=== PATIENT | female | born 1940 | race Caucasian/White ===

== ENCOUNTER 2022-03-15 15:41 | Observation (INO) | payer OTHER, MEDICARE, SELFPAY ==
[2022-03-15 15:44] VITALS: BP 110/54; PULSE 98; RESP 14; TEMP 36.6; O2SAT 95; BMI 31.9
--- NOTE | 2022-03-15 16:09 | ED.VIS.BACK ---
HPI History of Present Illness Chief Complaint: Back Informant: patient Onset/Context/Timing Onset: Days (2) Context: Gradual Onset Timing: Continuous Quality: Aching Location: Lumbar Worsened by: improves with - (Laying in bathtub) Relieved by: Nothing Associated Symptoms Associated Symptoms: Unable to Ambulate; Negative for Numbness, Tingling, Radiation to Right Leg, Radiation to Left Leg, Fever, Abdominal Pain, Dysuria, Urinary Retention, Urinary Incontinence, Constipation and Fecal Incontinence Narrative Narrative: Patient presents with back pain that has been constant over the past 2 days. Patient was found lying in her bathtub today. Patient states that she got into her bathtub 2 days ago and when she let the water out, she was unable to get out of her tub due to the pain in her back. Patient describes her pain as aching. Patient states pain is over the lumbosacral area. Patient states her pain is worse from laying in the tub for 2 days. Patient denies any radiation of the pain down her legs. Patient denies any bowel or bladder changes. Patient denies any saddle anesthesia. Patient also admits to a recent cough. Patient denies any sputum production. Patient denies any fevers or chills. Patient denies any shortness of breath or chest pain. [facility] Medical History Kidney calculi Home Medications NK 03/15/22 [History Last Taken Unknown] Allergy/AdvReac Type Severity Reaction Status Date / Time bee venom protein (honey bee) AdvReac Other Verified 03/15/22 15:48 Social History Smoking Status: Never smoker ROS ROS ED Constitutional Constitutional ED: Denies chills or fever(s) Eyes Eyes: Denies blurry vision or change in vision ENT ENT ED: Denies rhinorrhea or sore throat Cardiovascular Cardiovascular: Denies chest pain or palpitations Respiratory/Chest Respiratory/Chest: Reports cough; Denies dyspnea Gastrointestinal Gastrointestinal: Denies nausea or vomiting Genitourinary Genitourinary ED: Denies dysuria or hematuria Musculoskeletal Musculoskeletal: Reports back pain; Denies neck pain Integumentary Denies abscess or rash Neurologic Neurologic: Denies headache(s) or weakness Allergic/Immunologic Allergic/Immunologic ED: Denies mouth swelling or urticaria EXAM Physical Exam Const Vital Signs: 03/15/22 15:44 Temperature 97.8 F Temperature Source Oral Pulse Rate 98 Respiratory Rate 14 Blood Pressure 110/54 L Blood Pressure Mean 72 Pulse Ox 95 Oxygen Delivery Method Room Air Positive well nourished and well developed General Appearance ED: well developed and NAD HEENT Reports moist mucous membranes Neck supple and no JVD Resp normal respiratory effort and clear to auscultation bilaterally Cardio regular rate, regular rhythm and no murmurs GI normal to inspection, nondistended, normoactive bowel sounds and non-tender Palpation: soft Back/Spine Back/Spine Narrative: There is tenderness over the lower lumbar spine and lumbosacral junction. There is no bony crepitance or step-off. Range of motion was limited in all motions of the lumbar spine secondary to pain. Lumbar Spine / Lower Back: ROM limited and straight leg raise negative bilaterally Extremity normal to inspection General Extremety ED: Negative for edema or tenderness General Extremity: Negative for edema Neuro oriented x3, CN's II-XII intact bilaterally and no sensory deficits noted Sensorium / Orientation: alert Motor Exam: strength 5/5 throughout Psych mental status grossly normal Skin no rashes or lesions noted MDM MDM MDM Narrative Medical decision making narrative: X-rays of the lumbar spine were obtained. There are 2 views. On my interpretation, there are degenerative changes. There is a grade 1 spondylolisthesis of L4 on L5. There is no acute fracture noted. Radiologist also interpreted the x-rays and agrees. Portable 1 view chest x-ray was obtained. On my interpretation, lung santos are clear. There is normal cardiac silhouette. Bony thorax is normal. There is no acute process noted. Radiologist also interpreted the x-ray and agrees. CBC shows a leukocytosis of 17.9. Comprehensive metabolic profile shows a BUN of 58 and creatinine of 1.88. Total CK was elevated at 408. High-sensitivity troponin was normal at 11. Alkaline phosphatase was slightly elevated at 131. The remainder was essentially within normal limits. There are no prior labs for comparison. EKG was obtained. On my interpretation it shows a normal sinus rhythm with a rate of 93. There are nonspecific ST-T wave changes. TN interval was within normal limits. QRS interval was normal. QTc interval was slightly prolonged at 507 ms. Pelham was normal. There are no prior EKGs available for comparison. Lab Data Attestation: I reviewed the patient's lab results. Labs: Laboratory Results - last 24 hr 03/15/22 03/15/22 16:30 16:30 WBC 17.9 H RBC 4.84 Hgb 14.5 Hct 43.3 MCV 89.5 MCH 30.0 MCHC 33.5 RDW Std Deviation 42.5 RDW Coeff of Enedina 13.0 Plt Count 329 MPV 11.3 Immature Gran % (Auto) 0.700 Neut % (Auto) 89.8 H Lymph % (Auto) 4.1 L [place] % (Auto) 5.0 Eos % (Auto) 0.2 Baso % (Auto) 0.2 Absolute Neuts (auto) 16.1 H Absolute Lymphs (auto) 0.73 L Nucleated RBC % 0 Sodium 134 L Potassium 3.3 L Chloride 99 Carbon Dioxide 25.0 Anion Gap 10 BUN 58 H Creatinine 1.88 H Estim Creat Clear Calc 19.41 Est GFR (MDRD) Af Amer 33 L Est GFR (MDRD) Non-Af 27 L BUN/Creatinine Ratio 30.9 H Glucose 148 H Calcium 10.2 H Total Bilirubin 0.90 AST 36 ALT 29 Alkaline Phosphatase 131 H Total Creatine Kinase 408 H Troponin I High Sens 11 Total Protein 7.6 Albumin 2.5 L Globulin 5.1 H Albumin/Globulin Ratio 0.5 L Radiography Chest X-Ray - ED: 1 View, Read by ED Physician, Read by Radiologist and No Acute Disease X-Ray: LS SPine, Read by ED Physician, Read by Radiologist, No Fracture and Spondylolisthesis Diagnostic Testing: Clinical Impression(s) from Imaging Studies Lumbar Spine X-Ray 03/15/22 16:16 IMPRESSION: Grade 1 anterolisthesis L4 on L5. Severe multilevel degenerative disc disease and spondylosis. Electronically Signed: Leo Clay MD at 17:05 EDT , Chest X-Ray 03/15/22 16:30 IMPRESSION: Prominent right hilar nodes. No other acute abnormalities. Electronically Signed: Leo Clay MD at 17:05 EDT , EKG Initial EKG: Attestation: I personally reviewed and interpreted this EKG as follows: Interpretation: Sinus Rhythm (93), No Acute Injury Pattern and Non-Specific ST Changes Prior EKG tracings: not available for review Discharge Plan Triage Chief Complaint: Back ED Provider: Morgan Segura Dx/Rx/DC Orders Clinical Impression: Debility, General weakness, Low back pain Prescriptions: No Action NK RF: 0 Primary Care Provider: Care Physician,No Primary Referrals: Care Physician,No Primary [Primary Care Provider] - Disposition Disposition: Acute Care Hospital [facility]
--- NOTE | 2022-03-15 16:15 | EKG12_ITS ---
Test Reason : BP Blood Pressure : / mmHG Vent. Rate : 093 BPM Atrial Rate : 093 BPM P-R Int : 152 ms QRS Dur : 080 ms QT Int : 408 ms P-R-T Axes : 025 025 072 degrees QTc Int : 507 ms Normal sinus rhythm Nonspecific T wave abnormality Prolonged QT Abnormal ECG Confirmed by LÓPEZ CHOWDHURY, FLACO ([id number]), editor managing director BLAYNE TABOR ([id number]) on 03/19/2022 9:06:36 AM Referred By: BRANDIE Confirmed By:FLACO DAWN MD
--- NOTE | 2022-03-15 16:16 | RAD_ITS ---
INDICATION: Injury/Pain EXAMINATION/TECHNIQUE: X-RAY - XR Spine Lumbar 2 or 3 Views COMPARISON: None. FINDINGS: VERTEBRAE: Preserved vertebral body height. No fracture. Grade 1 anterolisthesis L4 on L5 Preservation of the normal lumbar lordosis. Severe multilevel facet arthropathy. DISCS: Severe multilevel degenerative disc disease and spondylosis. INCLUDED ABDOMEN: Included bowel gas pattern is non-obstructive. RAD/Lumbar Spine 2 or 3 Views IMPRESSION: Grade 1 anterolisthesis L4 on L5. Severe multilevel degenerative disc disease and spondylosis. Electronically Signed: Leo Clay MD at 17:05 EDT ,
[2022-03-15] MEDS: 0.9% Normal Saline 1,000 ML 1000 ML IV (16:26)
--- NOTE | 2022-03-15 16:30 | RAD_ITS ---
INDICATION: Cough EXAMINATION/TECHNIQUE: X-RAY - XR Chest 1 View COMPARISON: None. FINDINGS: The lungs are clear. The cardiomediastinal silhouette is unremarkable. Prominent right hilar nodes. No pleural effusion or pneumothorax. Degenerative changes of the thoracic spine. RAD/Chest 1 View (Portable) IMPRESSION: Prominent right hilar nodes. No other acute abnormalities. Electronically Signed: Leo Clay MD at 17:05 EDT ,
[2022-03-15 16:38] LABS: Absolute Lymphocyte Count 0.73 X10^3/uL (0.83-4.51); Absolute Neutrophil Count 16.1 X10^3/uL (2.0-7.7); Basophil# 0.03 X10^3/uL; Basophil% 0.2 % (0-1); Eosinophil# 0.04 X10^3/uL; Eosinophils% 0.2 % (0-5); Hematocrit 43.3 % (37-47); Hemoglobin 14.5 g/dL (12.0-15.0); Lymphocyte # 0.73 X10^3/ul (0.83-4.51); Lymphocyte % 4.1 % (19-41); Mean Corp Hgb Conc 33.5 g/dL (32-36); Mean Corpuscular Volume 89.5 fL (81-99); Mean Platelet Vol. 11.3 fl (6.2-12.0); Monocyte# 0.89 X10^3/uL; NRBC Flagged by Analyzer 0 % (0-5); Neutrophil # 16.09 X10^3/uL (2.7-7.7); Neutrophil % 89.8 % (47-70); Platelet Count 329 K/mm3 (150-450); RBC Distribution Width SD 42.5 fl (35.1-43.9); Red Blood Count 4.84 M/mm3 (4.2-5.4); White Blood Count 17.9 K/mm3 (4.4-11.0)
[2022-03-15 16:52] LABS: ALB/GLOB Ratio 0.5 RATIO (0.9-2.4); AST(SGOT) 36 U/L (15-37); Alanine Aminotransfer ALT/SGPT 29 U/L (13-56); Albumin, Serum 2.5 g/dL (3.2-5.0); Alkaline Phosphatase 131 U/L (45-117); Anion Gap 10 (5-15); BUN 58 mg/dL (7-18); BUN/Creat Ratio 30.9 RATIO (10-20); CPK Total, Creatine Kinase 408 U/L (26-192); Calcium,Total 10.2 mg/dL (8.5-10.1); Chloride 99 mmol/L (98-107); Creatinine, Serum 1.88 mg/dL (0.55-1.02); EST Glomerular Filtration Rate 27 mL/min (>60); Est Glom Filt Rate - Afr Amer 33 mL/min (>60); Estimated Creatinine Clearance 19.41 ml/min; Globulin 5.1 g/dL (2.2-4.2); Glucose 148 mg/dL (74-106); Potassium 3.3 mmol/L (3.5-5.1); Protein, Total 7.6 g/dL (6.4-8.2); Sodium Level 134 mmol/L (136-145); Troponin-I HS 11 pg/mL (3.0-54.0)
[2022-03-15 17:34] LABS: Mucous, Urine 0 SEEN /hpf (<or=2+); Red Blood Cells-Urine 0 SEEN /hpf (0-5)
[2022-03-15 17:37] LABS: Color, Urine Amber (Yellow); Glucose, Dipstick Normal (Normal); Ketone-Dipstick 5 mg/dl (Negative); Leukocyte Esterase-Dipstick 100 /ul (Negative); Nitrite-Dipstick Positive (Negative); Occult Blood-Urine 250 /ul (Negative); Protein-Dipstick 30 mg/dl (Negative); Specific Gravity, Urine 1.025 (1.002-1.030); Urine Clarity Clear (Clear); Urine Urobilinogen 4 mg/dl (Normal)
--- NOTE | 2022-03-15 18:11 | PCM.HP.STD ---
HPI - General General Date of Admission: 03/15/22 Date of Service: 03/15/22 Chief Complaint: Generalized weakness HPI Narrative MADHURI ANAYA, is a 82 F who presents to the emergency room at [facility] after being brought in due to the fact she was found in her bathtub at home and she was unable to get out of the bathtub. Patient states she took a bath 2 days ago, she drained the water from the tub but then was unable to get out of the bathtub. Patient lives by herself, she usually is independent-she cannot give a reason for her generalized weakness. Patient denies any fever, chills, or urinary symptoms. Patient does complain of lower back pain but she denies any fall or trauma Work-up in the emergency room included labs which showed an elevated white blood cell count at 17.9, chemistry profile showed a potassium of 3.3, creatinine was 1.88, BUN was 58, glucose was 148. There were no labs available in the patient's medical record here previously. Patient's urinalysis showed positive nitrites, 10-25 WBCs, and +2 bacteria. CPK was mildly elevated at 408. X-rays of the chest showed no acute process, there was prominent right hilar nodes, lumbar spine x-ray showed multilevel degenerative disc disease in the lumbar spine but no evidence of fracture. Patient's nephew was in the room during the time of my examination, the patient will be placed into observation status for evaluation by PT and OT, patient agrees to go to TCU if she qualifies for short-term skilled care. Patient will be placed on IV Rocephin for acute cystitis. IV fluids will be administered for dehydration. Patient has never been in a half-way facility before. [facility] Medical History Kidney calculi Home Medications NK 03/15/22 [History Last Taken Unknown] Allergy/AdvReac Type Severity Reaction Status Date / Time bee venom protein (honey bee) AdvReac Other Verified 03/15/22 15:48 Social History Smoking Status: Never smoker ROS Constitutional Constitutional: Reports fatigue and weakness; Denies anorexia, change in weight, chills, fever(s), malaise or night sweats Eyes Eyes: Denies blurry vision, change in vision, discharge from eye(s) or eye pain Cardiovascular Cardiovascular: Denies chest pain, claudication, dyspnea on exertion, edema, lightheadedness or palpitations Respiratory/Chest Respiratory/Chest: Reports cough; Denies dyspnea, excessive phlegm production, hemoptysis, productive cough, shortness of breath at rest or shortness of breath with exertion Gastrointestinal Gastrointestinal: Denies abdominal pain, coffee ground emesis, constipation, diarrhea, dyspepsia, hematemesis, hematochezia, melena, nausea or vomiting Genitourinary Genitourinary: Denies difficulty urinating, dysuria, hematuria, nocturia, urinary frequency, urinary hesitancy, urinary incontinence or urinary urgency Musculoskeletal Musculoskeletal: Reports back pain and other Details: Patient complains of low back pain ; Denies joint pain, joint stiffness, joint swelling, myalgias or neck pain Neurologic Neurologic: Denies abnormal gait, abnormal speech, confusion, disequilibrium, dizziness, focal weakness, headache(s), loss of vision, numbness, other visual disturbances, paresthesias, syncope or tingling Psychiatric Psychiatric: Denies anxiety, cognitive impairment, depression, irritability, mood swings or suicidal ideation Endocrine Endocrinology: Denies change in body appearance, cold intolerance, excessive sweating, heat intolerance, polydipsia or polyuria Hematologic/Lymphatic Hematologic/Lymphatic: Denies none, anemia, easy bleeding, easy bruising or lymphadenopathy Allergic/Immunologic Allergic/Immunologic: Denies rhinitis, urticaria, eczemia or asthma Vital Signs Vital Signs Vital Signs: 03/15/22 15:44 Temperature 97.8 F Temperature Source Oral Pulse Rate 98 Respiratory Rate 14 Blood Pressure 110/54 L Blood Pressure Mean 72 Pulse Ox 95 Oxygen Delivery Method Room Air Weight Weight: 81.74 kg Body Mass Index (BMI) 31.9 Physical Exam Const alert, oriented x3, no apparent distress and healthy appearing Constitutional Narrative: Patient appears her stated age, she is alert and oriented x3 and appropriate General Appearance: cooperative, well kempt and well developed Orientation / Consciousness: awake, oriented to person, oriented to place and oriented to time HEENT normocephalic, head/scalp atraumatic, hearing grossly normal bilaterally and moist oral mucous membranes Eyes PERRL, EOMs intact bilaterally and conjunctivae normal Neck nuchal rigidity, supple, no JVD, thyroid normal and no carotid bruits General: trachea midline Resp normal respiratory effort, no retractions, no use of accessory muscles and clear to auscultation bilaterally Auscultation: Negative for rales, rhonchi or wheezes Cardio regular rate, regular rhythm, S1 normal heart sound, S2 normal heart sound, no murmurs, no rub and no gallops GI normal to inspection, nondistended, normoactive bowel sounds, soft to palpation, non-tender and non-distended Extremity normal to inspection and no clubbing, cyanosis or edema Skin no rashes or lesions noted, no wounds and skin turgor normal General Skin Exam: no breakdown Neuro oriented x3, CN's II-XII intact bilaterally, no focal motor deficits and no sensory deficits noted Sensorium / Orientation: awake and alert Speech: speech normal Psych affect normal Results Lab / Micro Data Result Diagrams: 03/15/22 16:30 03/15/22 16:30 Labs: Laboratory Results - last 24 hr 03/15/22 16:30: WBC 17.9 H, RBC 4.84, Hgb 14.5, Hct 43.3, MCV 89.5, MCH 30.0, MCHC 33.5, RDW Std Deviation 42.5, RDW Coeff of Enedina 13.0, Plt Count 329, MPV 11.3, Immature Gran % (Auto) 0.700, Neut % (Auto) 89.8 H, Lymph % (Auto) 4.1 L, [place] % (Auto) 5.0, Eos % (Auto) 0.2, Baso % (Auto) 0.2, Absolute Neuts (auto) 16.1 H, Absolute Lymphs (auto) 0.73 L, Nucleated RBC % 0 03/15/22 16:30: Sodium 134 L, Potassium 3.3 L, Chloride 99, Carbon Dioxide 25.0, Anion Gap 10, BUN 58 H, Creatinine 1.88 H, Estim Creat Clear Calc 19.41, Est GFR (MDRD) Af Amer 33 L, Est GFR (MDRD) Non-Af 27 L, BUN/Creatinine Ratio 30.9 H, Glucose 148 H, Calcium 10.2 H, Total Bilirubin 0.90, AST 36, ALT 29, Alkaline Phosphatase 131 H, Total Creatine Kinase 408 H, Troponin I High Sens 11, Total Protein 7.6, Albumin 2.5 L, Globulin 5.1 H, Albumin/Globulin Ratio 0.5 L Radiology Impression Lumbar Spine X-Ray 03/15/22 16:16 IMPRESSION: Grade 1 anterolisthesis L4 on L5. Severe multilevel degenerative disc disease and spondylosis. Electronically Signed: Leo Clay MD at 17:05 EDT , Chest X-Ray 03/15/22 16:30 IMPRESSION: Prominent right hilar nodes. No other acute abnormalities. Electronically Signed: Leo Clay MD at 17:05 EDT , Assessment & Plan Assessment/Plan (1) General weakness: PLAN: 1. Acute debility-etiology unclear at this point,, patient will be placed in observation status on [facility], PT and OT will evaluate the patient, if she requires half-way care, she could be admitted to TCU this weekend for short-term rehab care. Patient is okay with this, I checked with TCU and they do have beds available as of the time of this dictation. #2 elevated creatinine-etiology unclear, possibly due to dehydration, patient will be given IV fluids and labs will be rechecked #3 hypokalemia-patient will be given oral potassium, labs will be rechecked tomorrow #4 leukocytosis-secondary to acute cystitis-labs will be rechecked tomorrow #5 acute cystitis-patient has positive nitrites and 10-25 WBCs as well as +2 bacteria on her urinalysis-patient will be placed on IV Rocephin #6 elevated creatinine kinase-this elevation is very slight, I do not believe the patient has rhabdomyolysis. Charges/Coding Visit Charges OBSV E&M: 65760 Initial observation care L3
[2022-03-15 18:13] LABS: Urine Bilirubin Dipstick 3 mg/dL (Negative)
[2022-03-15 18:18] LABS: White Blood Cells 10-25 SEEN /hpf (0-5)
[2022-03-15 18:19] LABS: Bacteria 2+ /hpf (None Seen); Renal Epithelial Cells 0 SEEN /hpf (0-5); Squamous Epithelial Cells - UA 0-5 SEEN /hpf (5-10)
[2022-03-15 19:11] VITALS: BMI 33.7
[2022-03-15 19:30] VITALS: BP 123/56; PULSE 87; RESP 18; TEMP 36.5; O2SAT 97
[2022-03-15 19:39] VITALS: BP 122/78; PULSE 81; RESP 16; TEMP 36.6; O2SAT 98
[2022-03-15] MEDS: 0.9% Normal Saline 1,000 ML 100 ML IV (20:34)
[2022-03-15] MEDS: Ceftriaxone 1 GM/50 ML BAG IV (20:45)
[2022-03-15] MEDS: Potassium Chloride Oral Tablet 20 MEQ 40 MEQ PO (21:22)
[2022-03-15] MEDS: Heparin Injection (Vial) 5,000 UNIT/ML VIAL 5000 UNIT SC (22:30)
[2022-03-16 02:17] VITALS: BP 124/61; PULSE 88; RESP 18; TEMP 37; O2SAT 94
[2022-03-16 06:13] LABS: Absolute Lymphocyte Count 0.73 X10^3/uL (0.83-4.51); Absolute Neutrophil Count 10.4 X10^3/uL (2.0-7.7); Basophil# 0.02 X10^3/uL; Basophil% 0.2 % (0-1); Eosinophil# 0.14 X10^3/uL; Eosinophils% 1.1 % (0-5); Hematocrit 35.9 % (37-47); Lymphocyte # 0.73 X10^3/ul (0.83-4.51); Mean Corp Hgb Conc 33.4 g/dL (32-36); Mean Corpuscular Hgb 30.1 pg (27.0-32.0); Mean Platelet Vol. 11.4 fl (6.2-12.0); Monocyte# 0.83 X10^3/uL; Monocyte% 6.8 % (0-10); NRBC Flagged by Analyzer 0 % (0-5); Neutrophil % 85.1 % (47-70); Platelet Count 297 K/mm3 (150-450); RBC Distribution Width CV 13.1 % (11.6-14.6); RBC Distribution Width SD 43.2 fl (35.1-43.9); Red Blood Count 3.99 M/mm3 (4.2-5.4); White Blood Count 12.2 K/mm3 (4.4-11.0)
[2022-03-16 06:33] LABS: Anion Gap 5 (5-15); BUN 48 mg/dL (7-18); BUN/Creat Ratio 42.1 RATIO (10-20); Chloride 108 mmol/L (98-107); Creatinine, Serum 1.14 mg/dL (0.55-1.02); EST Glomerular Filtration Rate 49 mL/min (>60); Est Glom Filt Rate - Afr Amer 59 mL/min (>60); Estimated Creatinine Clearance 32.02 ml/min; Glucose 113 mg/dL (74-106); Potassium 3.8 mmol/L (3.5-5.1); Sodium Level 137 mmol/L (136-145)
[2022-03-16] MEDS: 0.9% Normal Saline 1,000 ML 100 ML IV (06:48)
[2022-03-16] MEDS: Acetaminophen 325 MG Tablet 650 MG PO (06:51)
[2022-03-16 08:00] VITALS: BP 112/55; PULSE 84; RESP 16; TEMP 36.8; O2SAT 93
--- NOTE | 2022-03-16 09:41 | PN.HOSP_ITS ---
Subjective Subjective Patient seen and examined. She was admitted with a complaint of debility and general weakness. She says she was in her bathtub for about 2 days because she was too weak to get out. She denies any pain today and still feels weak. She was also found to have a UTI. She currently denies any burning with urination, any fever or chills. Review of systems otherwise negative. Review of systems otherwise negative. Objective Data Objective Data Vital Signs: Vital Signs Temp Pulse Resp BP Pulse Ox 98.6 F 88 18 124/61 H 94 03/16/22 02:17 03/16/22 02:17 03/16/22 02:17 03/16/22 02:17 03/16/22 02:17 Oxygen Delivery Method Room Air Weight: 190 lb 4.143 oz Body Mass Index (BMI) 33.7 Intake & Output: Intake and Output for Last 24 Hours 03/14/22 03/15/22 03/16/22 23:59 23:59 23:59 Intake Total 1050 / 1250 1400 / 1400 Output Total 500 / 500 Balance 1050 / 950 900 / 900 Lab / Micro Data Result Diagrams: 03/16/22 05:41 03/16/22 05:41 Labs: Laboratory Results - last 24 hr 03/15/22 16:30: WBC 17.9 H, RBC 4.84, Hgb 14.5, Hct 43.3, MCV 89.5, MCH 30.0, MCHC 33.5, RDW Std Deviation 42.5, RDW Coeff of Enedina 13.0, Plt Count 329, MPV 11.3, Immature Gran % (Auto) 0.700, Neut % (Auto) 89.8 H, Lymph % (Auto) 4.1 L, [place] % (Auto) 5.0, Eos % (Auto) 0.2, Baso % (Auto) 0.2, Absolute Neuts (auto) 16.1 H, Absolute Lymphs (auto) 0.73 L, Nucleated RBC % 0 03/15/22 16:30: Sodium 134 L, Potassium 3.3 L, Chloride 99, Carbon Dioxide 25.0, Anion Gap 10, BUN 58 H, Creatinine 1.88 H, Estim Creat Clear Calc 19.41, Est GFR (MDRD) Af Amer 33 L, Est GFR (MDRD) Non-Af 27 L, BUN/Creatinine Ratio 30.9 H, Glucose 148 H, Calcium 10.2 H, Total Bilirubin 0.90, AST 36, ALT 29, Alkaline Phosphatase 131 H, Total Creatine Kinase 408 H, Troponin I High Sens 11, Total Protein 7.6, Albumin 2.5 L, Globulin 5.1 H, Albumin/Globulin Ratio 0.5 L 03/15/22 17:20: Urine Color Kaylen, Urine Clarity Clear, Urine pH 5.0, Ur Specific [place] 1.025, Urine Protein 30 H, Urine Glucose (UA) Normal, Urine Ketones 5 H, Urine Occult Blood 250 H, Urine Nitrite Positive H, Urine Bilirubin 3 H, Urine Urobilinogen 4 H, Ur Leukocyte Esterase 100 H, Urine RBC 0 SEEN, Urine WBC 10-25 SEEN, Ur Squamous Epith Cells 0-5 SEEN, Ur Renal Epithelial Cell 0 SEEN, Urine Bacteria 2+, Urine Mucus 0 SEEN 03/16/22 05:41: WBC 12.2 H, RBC 3.99 L, Hgb 12.0, Hct 35.9 L, MCV 90.0, MCH 30.1, MCHC 33.4, RDW Std Deviation 43.2, RDW Coeff of Enedina 13.1, Plt Count 297, MPV 11.4, Immature Gran % (Auto) 0.800, Neut % (Auto) 85.1 H, Lymph % (Auto) 6.0 L, [place] % (Auto) 6.8, Eos % (Auto) 1.1, Baso % (Auto) 0.2, Absolute Neuts (auto) 10.4 H, Absolute Lymphs (auto) 0.73 L, Nucleated RBC % 0 03/16/22 05:41: Sodium 137, Potassium 3.8, Chloride 108 H, Carbon Dioxide 24.0, Anion Gap 5, BUN 48 H, Creatinine 1.14 H, Estim Creat Clear Calc 32.02, Est GFR (MDRD) Af Amer 59 L, Est GFR (MDRD) Non-Af 49 L, BUN/Creatinine Ratio 42.1 H, Glucose 113 H, Calcium 9.0 Radiography Diagnostic Testing: Radiology Impression Lumbar Spine X-Ray 03/15/22 16:16 IMPRESSION: Grade 1 anterolisthesis L4 on L5. Severe multilevel degenerative disc disease and spondylosis. Electronically Signed: Leo Clay MD at 17:05 EDT , Chest X-Ray 03/15/22 16:30 IMPRESSION: Prominent right hilar nodes. No other acute abnormalities. Electronically Signed: Leo Clay MD at 17:05 EDT , Physical Exam Const alert, oriented x3 and no apparent distress Exam Limitations: no limitations HEENT head/scalp atraumatic and moist oral mucous membranes Head and Scalp: normocephalic Eyes PERRL and EOMs intact bilaterally Neck no lymphadenopathy, supple and no JVD Resp normal respiratory effort, no retractions, no use of accessory muscles and clear to auscultation bilaterally Cardio regular rate, regular rhythm, S1 normal heart sound, S2 normal heart sound and no murmurs GI normal to inspection, nondistended, normoactive bowel sounds, soft to palpation, non-tender and non-distended Extremity normal to inspection, full ROM and no clubbing, cyanosis or edema Peripheral Pulses: Yes pulses 2+ throughout Skin no rashes or lesions noted Neuro oriented x3, CN's II-XII intact bilaterally and moves all extremities Sensorium / Orientation: awake and alert Psych affect normal Assessment & Plan Assessment/Plan (1) General weakness: (2) Low back pain: (3) Debility: (4) UTI (urinary tract infection): PLAN: #Debility due to UTI and generalized weakness * Currently on IV ceftriaxone. * Hydrate gently with IV fluids * PT OT on board. Fall precautions. * #UTI: As above #ARTI: CR was 1.88 on admission, and has trended down to 1.14 with iVF administration. Will trend Cr #Hypokalemia: Resolved DVT prophylaxis: Lovenox CODE STATUS: DNR CCA no intubation Charges/Coding Visit Charges OBSV E&M: 98408 Subsequent observation care L2
[2022-03-16] MEDS: Ceftriaxone 1 GM/50 ML BAG IV (09:52)
[2022-03-16] MEDS: Heparin Injection (Vial) 5,000 UNIT/ML VIAL 5000 UNIT SC (09:53)
--- NOTE | 2022-03-16 13:14 | CM.ED ---
Addendum entered by Brianna Cabrera 03/16/22 16:26: JUAN CARLOS talked to Jodi in registration. She said that Medicare was unable to be verified yesterday (03/15) and was unable to be verified today (02/13) as Medicare is down however, she felt that the patient's insurance was as presented Medicare A as primary. JUAN CARLOS called TCU and spoke to Chen and advised that patient was coming to TCU. Chen said that she would review the chart. Addendum entered by Brianna Cabrera 03/16/22 13:55: JUAN CARLOS called Jodi in Registraation. She said that Medicare A is Primary. Brianna GREWAL Addendum entered by Brianna Cabrera 03/16/22 13:23: JUAN CARLOS Updated patient and her family that thge plan for patient today is TCU. Brianna GREWAL Original Note: JUAN CARLOS Note JUAN CARLOS was advised by RN ASHLIE that patient was on observation status as the plan was to admit to TCU. JUAN CARLOS texted Shelby and explained that patient has Medicare Part A and secondary, [employer]. Shelby indicated that if patient is primary Medicare A patient can go to TCU. JUAN CARLOS reviewed with Catrachita that patient's primary needs Medicare and she confirmed patient was Medicare A. JUAN CARLOS updated head charger on MS3 that patient will be going to TCU when discharged and she updated the MD. Plan: TCU at discharge Brianna GREWAL
--- NOTE | 2022-03-16 13:30 | PCM.DC.SUM ---
Providers Date of Admission: 03/15/22 Primary Care Physician: No Primary Care Phys Reason For Visit: DEBILITY Diagnosis Discharge Diagnosis (1) General weakness: Status: Acute Code(s): R53.1 - Weakness (2) Low back pain: Status: Acute Code(s): M54.50 - Low back pain, unspecified (3) Debility: Status: Acute Code(s): R53.81 - Other malaise (4) UTI (urinary tract infection): Status: Acute Code(s): N39.0 - Urinary tract infection, site not specified Medications at Discharge Home Medications cefdinir 300 mg PO BID #10 cap 03/16/22 Hospital Course Summary of Care Provided Minutes Spent on Discharge: 35 Hospital Course: Patient is an 82-year-old female with a past medical history as outlined was admitted through the ED on 03/15/2022 after she was found in her bathtub where she was too weak to get out of. She had been in the past for about 2 days. She usually lives by herself and was independent but says she felt too weak and just could not get out of the bathtub. On admission she was found to have an elevated white cell count of 17.9 and potassium of 3.3. Creatinine was mildly elevated at 1.88. Urinalysis showed 2+ bacteria and 10-25 WBCs as well as positive nitrites. Chest x-ray showed no acute cardiopulmonary process. She was admitted to managed for debility and generalized weakness as well as UTI. She was started on IV ceftriaxone and urine cultures were obtained. Her ARTI improved and her creatinine trended downwards. Patient felt much better and creatinine was down to 1.14 at time of discharge. She obtained a bed at the Transitional Care Unit and was discharged on 03/16/2022. She is follow-up with her primary care doctor in 1 to 2 weeks. She was discharged on p.o. cefdinir 200 mg twice daily for 5 days to treat UTI. Patient was seen and examined on the day of discharge. She had no active complaints though still felt weak and tired. Review of systems otherwise negative. Labs and vitals reviewed. Home medication reviewed and reconciled. Physical Exam Const alert, oriented x3, no apparent distress and healthy appearing General Appearance: cooperative, comfortable, well kempt and well developed Orientation / Consciousness: awake, oriented to person, oriented to place and oriented to time Exam Limitations: no limitations HEENT normocephalic, head/scalp atraumatic, hearing grossly normal bilaterally and moist oral mucous membranes Eyes PERRL, EOMs intact bilaterally and conjunctivae normal Neck nuchal rigidity, no lymphadenopathy, supple, no JVD, thyroid normal and no carotid bruits General: trachea midline Resp normal respiratory effort, no retractions, no use of accessory muscles and clear to auscultation bilaterally Auscultation: Negative for rales, rhonchi or wheezes Cardio regular rate, regular rhythm, S1 normal heart sound, S2 normal heart sound, no murmurs, no rub and no gallops GI normal to inspection, nondistended, normoactive bowel sounds, soft to palpation, non-tender and non-distended Extremity normal to inspection, full ROM and no clubbing, cyanosis or edema Skin no rashes or lesions noted, no wounds and skin turgor normal General Skin Exam: no breakdown Neuro oriented x3, CN's II-XII intact bilaterally, moves all extremities, no focal motor deficits and no sensory deficits noted Sensorium / Orientation: awake and alert Speech: speech normal Psych affect normal Weight / BMI Weight Weight: 190 lb 4.143 oz Body Mass Index (BMI) 33.7 ABG / Lab / Microbiology Data Result Diagrams: 03/16/22 05:41 03/16/22 05:41 Laboratory: Laboratory Results - last 24 hr 03/15/22 16:30: WBC 17.9 H, RBC 4.84, Hgb 14.5, Hct 43.3, MCV 89.5, MCH 30.0, MCHC 33.5, RDW Std Deviation 42.5, RDW Coeff of Enedina 13.0, Plt Count 329, MPV 11.3, Immature Gran % (Auto) 0.700, Neut % (Auto) 89.8 H, Lymph % (Auto) 4.1 L, [place] % (Auto) 5.0, Eos % (Auto) 0.2, Baso % (Auto) 0.2, Absolute Neuts (auto) 16.1 H, Absolute Lymphs (auto) 0.73 L, Nucleated RBC % 0 03/15/22 16:30: Sodium 134 L, Potassium 3.3 L, Chloride 99, Carbon Dioxide 25.0, Anion Gap 10, BUN 58 H, Creatinine 1.88 H, Estim Creat Clear Calc 19.41, Est GFR (MDRD) Af Amer 33 L, Est GFR (MDRD) Non-Af 27 L, BUN/Creatinine Ratio 30.9 H, Glucose 148 H, Calcium 10.2 H, Total Bilirubin 0.90, AST 36, ALT 29, Alkaline Phosphatase 131 H, Total Creatine Kinase 408 H, Troponin I High Sens 11, Total Protein 7.6, Albumin 2.5 L, Globulin 5.1 H, Albumin/Globulin Ratio 0.5 L 03/15/22 17:20: Urine Color Kaylen, Urine Clarity Clear, Urine pH 5.0, Ur Specific [place] 1.025, Urine Protein 30 H, Urine Glucose (UA) Normal, Urine Ketones 5 H, Urine Occult Blood 250 H, Urine Nitrite Positive H, Urine Bilirubin 3 H, Urine Urobilinogen 4 H, Ur Leukocyte Esterase 100 H, Urine RBC 0 SEEN, Urine WBC 10-25 SEEN, Ur Squamous Epith Cells 0-5 SEEN, Ur Renal Epithelial Cell 0 SEEN, Urine Bacteria 2+, Urine Mucus 0 SEEN 03/16/22 05:41: WBC 12.2 H, RBC 3.99 L, Hgb 12.0, Hct 35.9 L, MCV 90.0, MCH 30.1, MCHC 33.4, RDW Std Deviation 43.2, RDW Coeff of Enedina 13.1, Plt Count 297, MPV 11.4, Immature Gran % (Auto) 0.800, Neut % (Auto) 85.1 H, Lymph % (Auto) 6.0 L, [place] % (Auto) 6.8, Eos % (Auto) 1.1, Baso % (Auto) 0.2, Absolute Neuts (auto) 10.4 H, Absolute Lymphs (auto) 0.73 L, Nucleated RBC % 0 03/16/22 05:41: Sodium 137, Potassium 3.8, Chloride 108 H, Carbon Dioxide 24.0, Anion Gap 5, BUN 48 H, Creatinine 1.14 H, Estim Creat Clear Calc 32.02, Est GFR (MDRD) Af Amer 59 L, Est GFR (MDRD) Non-Af 49 L, BUN/Creatinine Ratio 42.1 H, Glucose 113 H, Calcium 9.0 Radiography Diagnostic Testing: Radiology Impression Lumbar Spine X-Ray 03/15/22 16:16 IMPRESSION: Grade 1 anterolisthesis L4 on L5. Severe multilevel degenerative disc disease and spondylosis. Electronically Signed: Leo Clay MD at 17:05 EDT , Chest X-Ray 03/15/22 16:30 IMPRESSION: Prominent right hilar nodes. No other acute abnormalities. Electronically Signed: Leo Clay MD at 17:05 EDT , D/C Instructions Discharge Diet: Low fat / Low cholesterol Discharge Activity: Return to Normal Activity Weight Bearing Status: Weight bearing as tolerated Call your doctor if you observe: Fever of 101 or Higher, Dizziness, Swelling in the ankles and Increased palpitations (irregular heartbeat) Meaningful Use Info Meaningful Use Diagnoses (Choose all that apply): None applicable Discharge Plan Admission Admit Date/Time: 03/15/22 18:07 Primary Reason for Your Visit: debiliy, UTI Attending Provider: Aarti Mcpherson Primary Care Provider: Care Physician,No Primary Discharge Orders/Prescriptions Prescriptions: New cefdinir 300 mg capsule 300 mg PO BID Qty: 10 RF: 0 Referrals / Follow Up: Care Physician,No Primary [Primary Care Provider] - Disposition Disposition (needs filled in before D/C Order can be placed): Long-Term Facility Charges/Coding Visit Charges Inpatient E&M: 05640 Disch Hosp
[2022-03-16 13:41] VITALS: BP 122/60; PULSE 86; RESP 16; TEMP 36.7; O2SAT 93
--- NOTE | 2022-03-16 13:42 | TREXTCAR_ITS ---
Diet 03/15/22 19:07 Diet: Regular - General Food consistency:: Regular Liquid Consistency:: Regular/Thin Routine Orders/Code Status Enema Type: Fleetz Enema Frequency: Daily PRN Suppository Type: Dulcolax 10mg Suppository Frequency: Daily PRN Wound(s) left elbow: Wound Type: scab Therapies Physical Therapy: Eval and Treat Occupational Therapy: Eval and Treat Problem/Diagnosis (1) General weakness: Status: Acute (2) Low back pain: Status: Acute (3) Debility: Status: Acute (4) UTI (urinary tract infection): Status: Acute Allergies/Procedures Done in Hospital Allergies bee venom protein (honey bee) Adverse Reaction (Verified 03/15/22 15:48) Other Procedures: None Type of Care/Length of Stay Estimated LOS: Convalescent Care Less Than 30 days Type of Care Needed: Skilled Rehab Potential: Good Prognosis: Good Additional Orders/Day of Discharge Day of Discharge: 03/16/22 Dietary and Speech Recommendations Dietitian Recommendations/Changes: continue regular diet, ensure enlive 120mL 4x/day w/ medpass Discharge Plan Admission Admit Date/Time: 03/15/22 18:07 Primary Reason for Your Visit: debiliy, UTI Attending Provider: Aarti Mcpherson Primary Care Provider: Care Physician,No Primary Discharge Orders/Prescriptions Prescriptions: New cefdinir 300 mg capsule 300 mg PO BID Qty: 10 RF: 0 Referrals / Follow Up: Care Physician,No Primary [Primary Care Provider] - Disposition Disposition (needs filled in before D/C Order can be placed): Group Home Facility
[2022-03-16] MEDS: Menthol/Lanolin/Calamine/Znox 113 GM Tube 1 APPLIC TOPICAL (14:03)
== END 2022-03-16 16:50 ==
LOC: ED 18:15 → MS3 18:30
PROVIDERS: Admitting Provider Internal Medicine; Emergency Provider Emergency Medicine; Visit Provider Student in an Organized Health Care Education/Training Program
DX: N30.00 Acute cystitis without hematuria (principal); N17.9 Acute kidney failure, unspecified; R53.1 Weakness; M43.16 Spondylolisthesis, lumbar region; E86.0 Dehydration; R53.81 Other malaise; M51.36 Other intervertebral disc degeneration, lumbar region
CPT/HCPCS: 36415; 71045; 72100; 80048; 80053; 81001; 82550; 84484; 85025; 87077; 87086; 87088; 87186; 87426; 93005; 96361; 96365; 96366; 96372; 97162; 97166; 97802; 99218; 99283; J7030; A4216; G0378

== ENCOUNTER 2022-03-16 17:04 | Inpatient (IN) | payer MEDICARE, OTHER, SELFPAY ==
[2022-03-16 17:17] VITALS: BMI 35.6
[2022-03-16 17:26] VITALS: BP 149/56; PULSE 88; RESP 18; TEMP 36.3; O2SAT 96
[2022-03-16 17:28] VITALS: PULSE 80; RESP 14
--- NOTE | 2022-03-16 19:11 | NURSING ---
Received order for Tylenol 650mg PRN q6hr
--- NOTE | 2022-03-16 20:33 | HP.PCM_ITS ---
HPI - General General Date of Admission: 03/16/22 HPI Narrative 03/15/2022 MADHURI ANAYA, is a 82 Female who presents to [facility] Emergency Department with back pain. Constant back pain x 2 days, found lying in bathtub. Got in bathtub 2 days ago, unable to get out due to back pain. Aching pain, lumbosacral back pain, recent dry cough. X-ray LS spine showed degenerative changes, grade 1 spondylolisthesis L4-L5. Chest X-ray negative. WBC 17.9, BUN 58, Cr 1.88, CK 48. UA consistent with urinary tract infection, urine sent for culture, Rocephin iv given. 03/15/2022 Admit to Hospital. PT/OT for group home facility. IV fluids for acute kidney injury. Replete potassium for hypokalemia. Rocephin iv for urinary tract infection. No rhabdomyolysis. 03/16/2022 Rocephin iv for urinary tract infection. Creatinine improved from 1.88 to 1.14. 03/16/2022 Admit to TCU with debility, here for rehabilitation, strengthening, prior to discharge home alone. [facility] Medical History Kidney calculi Home Medications cefdinir 300 mg PO BID 03/16/22 [History Last Taken Unknown] Allergy/AdvReac Type Severity Reaction Status Date / Time bee venom protein (honey bee) AdvReac Other Verified 03/15/22 15:48 Social History (Updated 03/16/22 @ 20:[address] Merlin Escalera MD) household members: none Smoking Status: Never smoker alcohol intake: never substance use type: does not use ROS Constitutional Constitutional: Denies chills, fever(s) or weight gain ENT HEENT: Denies headache(s), nasal congestion or nasal discharge Cardiovascular Cardiovascular: Denies chest pain or palpitations Respiratory/Chest Respiratory/Chest: Denies cough, excessive phlegm production or shortness of breath with exertion Gastrointestinal Gastrointestinal: Denies abdominal pain, nausea or vomiting Genitourinary Genitourinary: Denies dysuria Musculoskeletal Musculoskeletal: Denies joint pain or joint swelling Integumentary Integumentary: Denies rash or wounds Neurologic Neurologic: Denies focal weakness, numbness or tingling Psychiatric Psychiatric: Denies anxiety, auditory hallucinations, depression, homicidal ideation or suicidal ideation Vital Signs Vital Signs Vital Signs: 03/16/22 17:26 03/16/22 17:28 Temperature 97.3 F L Temperature Source Oral Pulse Rate 88 80 Pulse Rhythm Regular Pulse Strength Normal (2+) Respiratory Rate 18 14 Respiratory Effort Normal Respiratory Depth Normal Respiratory Pattern Normal Blood Pressure 149/56 H Blood Pressure Mean 87 Blood Pressure Source Monitor Blood Pressure Position Supine Blood Pressure Location Left Arm Pulse Ox 96 Oxygen Delivery Method Room Air Weight Weight: 91.3 kg Body Mass Index (BMI) 35.6 Physical Exam Const alert General Appearance: cooperative HEENT normocephalic Eyes PERRL and EOMs intact bilaterally Neck supple, no JVD and no carotid bruits Resp normal respiratory effort, normal air movement and clear to auscultation bilaterally Cardio regular rate and regular rhythm GI normal to inspection, nondistended, normoactive bowel sounds, non-tender and non-distended Extremity normal capillary refill General Extremity: Negative for edema Skin no rashes or lesions noted General Skin Exam: no breakdown Psych affect normal Appearance: appropriate Results Lab / Micro Data Result Diagrams: 03/17/22 04:58 03/17/22 04:58 Assessment & Plan Assessment/Plan (1) Debility: (2) Low back pain: (3) Urinary tract infection: (4) Acute kidney injury: (5) Hypokalemia: (6) Kidney stones: PLAN: 82 year old female with below past medical history hospitalized for low back pain, complicated by urinary tract infection, acute kidney injury, hypokalemia, admitted to TCU with debility, here for rehabilitation, strengthening, prior to discharge home alone. * Debility - PT/OT. * Pain - Tylenol 1000mg q6h prn pain (1-10). * Bowel - Miralax 17gm daily, senna/colace 1 tablet bid, Dulcolax 10mg pr daily prn, Soap suds enema for cleanout. * Adult immunization - Administer pneumonia vaccine, flu vaccine, covid19 vaccine as appropriate. * DVT prophylaxis - HAS-BLED score 1 intermediate risk of bleeding, Michelle score 5 high risk of blood clots, overall risk moderate, Rx Xarelto 10mg daily x 14 days. * Urinary tract infection - Cefdinir 300mg bid thru 03/21/2022, follow culture results. * Nutrition - Ensure Enlive 120ml 4x/day. * Skin irritation - Calmoseptine topical bid. * Tinea Corporis - Nystatin topical bid. * Hypokalemia - KCL 40meq po x 1 dose, repeat BMP tomorrow.
--- NOTE | 2022-03-16 21:40 | NURSING ---
This nurse in pt's room to administer medications. Noted white perioral discoloration with light above sink on. Turned light on above bed and pt had applied calmoseptine to perioral skin. Instructed pt this cream is not for dry skin to or surrounding lips. Verbalizes she applied cream herself after recommendation to do so. Pt unsure who instructed her to apply calmoseptine to her face. This nurse removed calmoseptine w/ a warm, wet washcloth. Pt tolerated well. Given mouth moisturizer to apply to lips and oral cavity if needed for dryness. Calmospetine applied to sheared area to lt buttock. Nystatin applied to groin and red area to left abdominal fold. Call light w/ in reach and instructed on use.
[2022-03-16] MEDS: Nystatin Powder 15gm Bottle 1 APPLIC TOPICAL (21:43)
[2022-03-16] MEDS: Menthol/Lanolin/Calamine/Znox 113 GM Tube 1 APPLIC TOPICAL (21:44)
[2022-03-16] MEDS: Cefdinir 300 MG Capsule PO (21:45)
[2022-03-16] MEDS: Senna/Docusate Sodium 1 Tablet PO (21:45)
[2022-03-17 05:07] LABS: Absolute Lymphocyte Count 0.72 X10^3/uL (0.83-4.51); Absolute Neutrophil Count 8.7 X10^3/uL (2.0-7.7); Basophil# 0.03 X10^3/uL; Basophil% 0.3 % (0-1); Eosinophil# 0.24 X10^3/uL; Eosinophils% 2.3 % (0-5); Hematocrit 33.8 % (37-47); Hemoglobin 11.1 g/dL (12.0-15.0); Lymphocyte # 0.72 X10^3/ul (0.83-4.51); Lymphocyte % 6.8 % (19-41); Mean Corp Hgb Conc 32.8 g/dL (32-36); Mean Corpuscular Hgb 29.8 pg (27.0-32.0); Mean Corpuscular Volume 90.9 fL (81-99); Mean Platelet Vol. 10.8 fl (6.2-12.0); Monocyte# 0.61 X10^3/uL; Monocyte% 5.8 % (0-10); NRBC Flagged by Analyzer 0 % (0-5); Neutrophil # 8.73 X10^3/uL (2.7-7.7); Neutrophil % 82.5 % (47-70); Platelet Count 286 K/mm3 (150-450); RBC Distribution Width CV 13.3 % (11.6-14.6); RBC Distribution Width SD 44.6 fl (35.1-43.9); Red Blood Count 3.72 M/mm3 (4.2-5.4); White Blood Count 10.6 K/mm3 (4.4-11.0)
[2022-03-17 05:30] LABS: BUN 32 mg/dL (7-18); Creatinine, Serum 0.86 mg/dL (0.55-1.02); Estimated Creatinine Clearance 42.44 ml/min; Glucose 123 mg/dL (74-106)
[2022-03-17 05:31] LABS: Anion Gap 5 (5-15); BUN/Creat Ratio 37.3 RATIO (10-20); Calcium,Total 8.4 mg/dL (8.5-10.1); Chloride 111 mmol/L (98-107); EST Glomerular Filtration Rate 67 mL/min (>60); Est Glom Filt Rate - Afr Amer 82 mL/min (>60); Potassium 3.4 mmol/L (3.5-5.1); Sodium Level 142 mmol/L (136-145)
[2022-03-17] MEDS: Cefdinir 300 MG Capsule PO ×2 (06:02→17:33)
[2022-03-17] MEDS: Acetaminophen 500 MG Tablet 1000 MG PO (06:02)
[2022-03-17] MEDS: Nystatin Powder 15gm Bottle 1 APPLIC TOPICAL ×2 (06:03→17:32)
[2022-03-17] MEDS: Menthol/Lanolin/Calamine/Znox 113 GM Tube 1 APPLIC TOPICAL ×2 (06:04→17:32)
[2022-03-17] MEDS: Polyethylene Glycol 3350 17 GM PACKET PO (06:06)
[2022-03-17] MEDS: Senna/Docusate Sodium 1 Tablet PO ×2 (06:06→17:33)
--- NOTE | 2022-03-17 06:19 | NURSING ---
Pt refusing SSE this am. Agreeable to Benjamín and Crystal. Will continue to monitor.
--- NOTE | 2022-03-17 08:57 | NURSING ---
Patient refused SSE once again this AM, will attempt to give suppository in place.
[2022-03-17] MEDS: Tuberculin,Purif.prot.deriv. 50 TU/ML Vial 0.1 ML ID (12:49)
[2022-03-17 13:25] VITALS: BP 116/53; PULSE 95; RESP 16; TEMP 36.1; O2SAT 97
[2022-03-17] MEDS: Rivaroxaban 10 MG Tablet PO (17:32)
[2022-03-18] MEDS: Acetaminophen 500 MG Tablet 1000 MG PO ×2 (01:08→16:07)
--- NOTE | 2022-03-18 01:30 | NURSING ---
Pt calls requesting something for pain in rt knee. Reports [place] [address] Renner. Rt knee w/ non-pitting edema. No redness or warmth noted. Pain w/ gentle ROM. In no acute distress. Medicated w/ Tylenol 100 mg and ice applied to knee secured w/ DAVID wrap. Informed pt Screed Operator can assess to determine if any additional interventions are warranted. Will continue to monitor.
[2022-03-18] MEDS: Polyethylene Glycol 3350 17 GM PACKET PO (05:51)
[2022-03-18] MEDS: Senna/Docusate Sodium 1 Tablet PO ×2 (05:51→17:43)
[2022-03-18] MEDS: Cefdinir 300 MG Capsule PO ×2 (05:51→17:43)
[2022-03-18] MEDS: Nystatin Powder 15gm Bottle 1 APPLIC TOPICAL ×2 (05:52→17:44)
[2022-03-18] MEDS: Menthol/Lanolin/Calamine/Znox 113 GM Tube 1 APPLIC TOPICAL ×2 (05:54→17:50)
[2022-03-18] MEDS: Potassium Chloride Oral Tablet 20 MEQ 40 MEQ PO (08:29)
--- NOTE | 2022-03-18 11:57 | NURSING ---
Resident educated on the COVID 19 Vaccine and does not want to receive it.
--- NOTE | 2022-03-18 12:02 | CASEMGMT ---
Social Work Met with patient for initial assessment. Introduced self and role. Pt wishes to have nephew as primary contact and niece as secondary contact. Nephew is HCPOA and paperwork on chart. Explained Medicare benefit. Encouraged to contact secondary insurance to ensure copay coverage. The goal is for pt to return home alone. Nephew and niece live several hours away, but nephew comes into town as often as possible. SW to continue to follow. Lesley Mata, CLINICAL RESEARCH NURSE COORDINATOR PHOTOGRAPHIC ENLARGER OPERATOR
--- NOTE | 2022-03-18 12:05 | CASEMGMT ---
Social Work Met with patient for initial assessment. Introduced self and role. Pt wishes to have nephew as primary contact and niece as secondary contact. Nephew is HCPOA and paperwork on chart. Discussed code status and MOLST form. Pt confirmed DNR-CCA, no intubation. Bracelet in place. MOLST communicated to , placed on chart. Explained Medicare benefit. Encouraged to contact secondary insurance to ensure copay coverage. The goal is for pt to return home alone. Nephew and niece live several hours away, but nephew comes into town as often as possible. SW to continue to follow. Lesley Mata, AIR CREW MEMBER FIRST PRESS OPERATOR
--- NOTE | 2022-03-18 13:44 | PCM.PN.RX ---
Progress Note - Pharmacy Subjective: TCU ADMISSION Objective: Allergies bee venom protein (honey bee) Adverse Reaction (Verified 03/15/22 15:48) Other Current Medications Generic Name Dose Route Start Last Admin Trade Name Freq PRN Reason Stop Dose Admin Acetaminophen 1,000 mg 03/16/22 20:44 03/18/22 01:08 Acetaminophen 500 Mg Tablet PO 1,000 mg Q6H PRN PRN Administration Pain Score 1-10 Bisacodyl 10 mg 03/16/22 17:29 Bisacodyl 10 Mg Suppository RC DAILY PRN Constipation Calamine/Phenol 1 applic 03/16/22 18:00 03/18/22 05:54 Menthol/Lanolin/Calamine/Znox 113 Gm Tube TOPICAL 1 each BID SANGEETA Administration Protocol Cefdinir 300 mg 03/16/22 18:00 03/18/22 05:51 Cefdinir 300 Mg Capsule PO 03/21/22 06:01 300 mg BID SANGEETA Administration Nutritional Formula (Lactose Free) 120 ml 03/16/22 22:00 03/18/22 11:39 Ensure Enlive 120 Ml Liquid PO 120 ml 4X/DAY SANGEETA Administration Nystatin 1 applic 03/16/22 18:00 03/18/22 05:52 Nystatin Powder 15gm Bottle TOPICAL 1 applic BID SANGEETA Administration Protocol Polyethylene Glycol 17 gm 03/17/22 06:00 03/18/22 05:51 Polyethylene Glycol 3350 17 Gm Packet PO 17 gm DAILY SANGEETA Administration Rivaroxaban 10 mg 03/17/22 17:00 03/17/22 17:32 Rivaroxaban 10 Mg Tablet PO 03/31/22 17:01 10 mg DINNER SANGEETA Administration Senna/Docusate Sodium 1 tablet 03/16/22 20:45 03/18/22 05:51 Senna/Docusate Sodium 1 Tablet PO 1 tablet BID SANGEETA Administration Tuberculin PPD 0.1 ml 03/24/22 10:00 Tuberculin,Purif.Prot.Deriv. 50 Tu/Ml Vial ID 03/24/22 10:01 X1 ONE Problem List (Last Reviewed 03/16/22 @ 20:[address] Merlin Escalera MD) Kidney stones (Acute) Hypokalemia (Acute) Acute kidney injury (Acute) Urinary tract infection (Acute) Low back pain (Acute) Debility (Acute) Vital Signs Temp Pulse Resp BP Pulse Ox 96.9 F L 95 16 116/53 L 97 03/17/22 13:25 03/17/22 13:25 03/17/22 13:25 03/17/22 13:25 03/17/22 13:25 Oxygen Delivery Method Room Air Weight: 91.3 kg Body Mass Index (BMI) 35.6 Sodium 142 mmol/L (136-145) 03/17/22 04:58 Potassium 3.4 mmol/L (3.5-5.1) L 03/17/22 04:58 Chloride 111 mmol/L (98-107) H 03/17/22 04:58 Carbon Dioxide 26.0 mmol/L (21.0-32.0) 03/17/22 04:58 Anion Gap 5 (5-15) 03/17/22 04:58 BUN 32 mg/dL (7-18) H 03/17/22 04:58 Creatinine 0.86 mg/dL (0.55-1.02) 03/17/22 04:58 Est GFR (MDRD) Af Amer 82 mL/min (>60) 03/17/22 04:58 Est GFR (MDRD) Non-Af 67 mL/min (>60) 03/17/22 04:58 BUN/Creatinine Ratio 37.3 RATIO (10-20) H 03/17/22 04:58 Glucose 123 mg/dL (74-106) H 03/17/22 04:58 Assessment/Plan: 1. Pain: acetaminophen 1000mg PO Q6H PRN pain 1-10. Please continue to monitor for increased pain and PRN usage. 2. DVT prophylaxis: rivaroxaban 10mg PO DINNER thru 03/31/22. Please continue to monitor for S/S of bleeding and hemoglobin (last 11.1g/dL). 3. UTI: cefdinir 300mg PO BID thru 03/21/22. Please continue to monitor renal function, S/S of infection and diarrhea. Psychotropic Medications: None Unnecessary Medications: None Bowel Regimen: Miralax 17gm PO daily, senna/docusate 1T PO BID and bisacodyl 10mg RC daily PRN constipation. Please continue to monitor for constipation and PRN usage. Date of Note:: 03/18/22
[2022-03-18 14:00] VITALS: BP 132/66; PULSE 88; RESP 16; TEMP 36.8; O2SAT 97
[2022-03-18] MEDS: Rivaroxaban 10 MG Tablet PO (17:43)
[2022-03-18] MEDS: Magnesium Citrate 300 ML PO (18:05)
[2022-03-18 20:25] VITALS: PULSE 68; RESP 18; O2SAT 92
[2022-03-19] MEDS: Nystatin Powder 15gm Bottle 1 APPLIC TOPICAL ×2 (05:30→18:10)
[2022-03-19] MEDS: Cefdinir 300 MG Capsule PO ×2 (05:30→18:08)
[2022-03-19] MEDS: Polyethylene Glycol 3350 17 GM PACKET PO (05:31)
[2022-03-19 06:26] LABS: Anion Gap 5 (5-15); BUN 21 mg/dL (7-18); BUN/Creat Ratio 24.3 RATIO (10-20); Calcium,Total 8.8 mg/dL (8.5-10.1); Chloride 106 mmol/L (98-107); Creatinine, Serum 0.86 mg/dL (0.55-1.02); EST Glomerular Filtration Rate 67 mL/min (>60); Est Glom Filt Rate - Afr Amer 81 mL/min (>60); Estimated Creatinine Clearance 42.44 ml/min; Glucose 104 mg/dL (74-106); Potassium 4.1 mmol/L (3.5-5.1); Sodium Level 138 mmol/L (136-145)
[2022-03-19 14:00] VITALS: BP 107/62; PULSE 93; RESP 17; TEMP 36.4; O2SAT 94
[2022-03-19] MEDS: Menthol/Lanolin/Calamine/Znox 113 GM Tube 1 APPLIC TOPICAL (18:09)
[2022-03-19] MEDS: Rivaroxaban 10 MG Tablet PO (18:09)
[2022-03-20] MEDS: Cefdinir 300 MG Capsule PO ×2 (05:19→18:04)
[2022-03-20] MEDS: Senna/Docusate Sodium 1 Tablet PO ×2 (05:19→18:04)
[2022-03-20] MEDS: Nystatin Powder 15gm Bottle 1 APPLIC TOPICAL ×2 (05:19→18:04)
[2022-03-20] MEDS: Polyethylene Glycol 3350 17 GM PACKET PO (05:19)
[2022-03-20] MEDS: Menthol/Lanolin/Calamine/Znox 113 GM Tube 1 APPLIC TOPICAL ×2 (05:23→18:04)
--- NOTE | 2022-03-20 09:20 | CASEMGMT ---
Social Work IDT met with patient and nephew for care plan meeting. Discussed patient's progress in PT/OT and nursing. Pt making progress. Explained Medicare benefit. Encouraged to contact secondary insurance to ensure copay coverage. The goal is for pt to return home alone. Pt has 3 steps to enter and was independent prior. Pt reports she is getting walk-in shower in home, but nephew states unsure of time frame. Nephew is an surveillance systems engineer and problem solved the logistics for bathroom safety with grab bars and tub chair. Provided [place] [facility] resources. SW to order HHC and DME needs at [place]. SW to continue to follow. Lesley Mata, MARINE ELECTRONICS REPAIRER FIRE ALARM REPAIRER
[2022-03-20 14:00] VITALS: BP 137/73; PULSE 72; RESP 15; TEMP 35.8; O2SAT 93
--- NOTE | 2022-03-20 15:17 | CASEMGMT ---
Social Work BIMS and PHQ-9 completed for MDS assessment. Lesley Mata, TRUCK DRIVING INSTRUCTOR MANAGEMENT PLANNER
[2022-03-20] MEDS: Rivaroxaban 10 MG Tablet PO ×2 (18:04)
[2022-03-21] MEDS: Acetaminophen 500 MG Tablet 1000 MG PO ×2 (02:19→13:45)
[2022-03-21] MEDS: Polyethylene Glycol 3350 17 GM PACKET PO (06:05)
[2022-03-21] MEDS: Cefdinir 300 MG Capsule PO (06:05)
[2022-03-21] MEDS: Menthol/Lanolin/Calamine/Znox 113 GM Tube 1 APPLIC TOPICAL ×2 (06:05→17:51)
[2022-03-21] MEDS: Senna/Docusate Sodium 1 Tablet PO (06:05)
[2022-03-21] MEDS: Nystatin Powder 15gm Bottle 1 APPLIC TOPICAL ×2 (06:05→17:50)
--- NOTE | 2022-03-21 11:54 | NURSING ---
Ab Initio Etl Developer Note: Nursing requests in room activity supplies for resident as she states that she feels bored at times. Visit with resident in room. Offered knitting, crocheting, needlepoint supplies as resident stated upon initial assessment that she enjoys. Res declined offers including coloring, music, reading, magazines puzzles. Will continue to visit in room and will continue to offer activity materials.
[2022-03-21 14:00] VITALS: BP 135/72; PULSE 75; RESP 17; TEMP 36.3
[2022-03-22] MEDS: Lidocaine 5% Patch 1 PATCH TOPICAL (06:45)
[2022-03-22] MEDS: Nystatin Powder 15gm Bottle 1 APPLIC TOPICAL ×2 (06:46→17:25)
[2022-03-22] MEDS: Menthol/Lanolin/Calamine/Znox 113 GM Tube 1 APPLIC TOPICAL ×2 (06:46→17:25)
--- NOTE | 2022-03-22 09:01 | CASEMGMT ---
Social Work BIMS and PHQ-9 completed for MDS assessment. Lesley Mata, DIRECTOR OF SCIENTIFIC RESEARCH CHIEF STRATEGY OFFICER
[2022-03-22] MEDS: Acetaminophen 500 MG Tablet 1000 MG PO (09:47)
--- NOTE | 2022-03-22 12:00 | NURSING ---
Completed pain interview today for CÉSAR 03/23/22.
[2022-03-22 14:00] VITALS: BP 110/56; PULSE 85; RESP 16; TEMP 36.1; O2SAT 95
[2022-03-22] MEDS: traMADol 50 MG Tablet PO (17:24)
[2022-03-22] MEDS: Rivaroxaban 10 MG Tablet PO (17:25)
[2022-03-22] MEDS: Senna/Docusate Sodium 1 Tablet PO (17:25)
--- NOTE | 2022-03-22 18:00 | NURSING ---
Lidocain patch to lower back removed, per orders.
[2022-03-22 20:45] VITALS: PULSE 76; RESP 16; O2SAT 94
[2022-03-23] MEDS: traMADol 50 MG Tablet PO ×2 (05:32→20:41)
[2022-03-23] MEDS: Senna/Docusate Sodium 1 Tablet PO (05:34)
[2022-03-23] MEDS: Nystatin Powder 15gm Bottle 1 APPLIC TOPICAL ×2 (05:34→17:12)
[2022-03-23] MEDS: Menthol/Lanolin/Calamine/Znox 113 GM Tube 1 APPLIC TOPICAL ×2 (05:37→17:12)
[2022-03-23] MEDS: Lidocaine 5% Patch 1 PATCH TOPICAL (08:21)
[2022-03-23 14:00] VITALS: BP 108/68; PULSE 81; RESP 17; TEMP 36.3; O2SAT 92
[2022-03-23] MEDS: Rivaroxaban 10 MG Tablet PO (17:12)
[2022-03-24] MEDS: Menthol/Lanolin/Calamine/Znox 113 GM Tube 1 APPLIC TOPICAL ×2 (05:20→16:51)
[2022-03-24] MEDS: Lidocaine 5% Patch 1 PATCH TOPICAL (05:22)
[2022-03-24 07:55] LABS: Absolute Lymphocyte Count 1.27 X10^3/uL (0.83-4.51); Absolute Neutrophil Count 12.7 X10^3/uL (2.0-7.7); Basophil# 0.04 X10^3/uL; Basophil% 0.3 % (0-1); Eosinophil# 0.12 X10^3/uL; Eosinophils% 0.8 % (0-5); Hematocrit 35.2 % (37-47); Hemoglobin 11.4 g/dL (12.0-15.0); Lymphocyte # 1.27 X10^3/ul (0.83-4.51); Lymphocyte % 8.2 % (19-41); Mean Corp Hgb Conc 32.4 g/dL (32-36); Mean Corpuscular Hgb 29.6 pg (27.0-32.0); Mean Corpuscular Volume 91.4 fL (81-99); Mean Platelet Vol. 11.1 fl (6.2-12.0); Monocyte# 0.88 X10^3/uL; Monocyte% 5.7 % (0-10); NRBC Flagged by Analyzer 0 % (0-5); Neutrophil % 82.3 % (47-70); Platelet Count 228 K/mm3 (150-450); RBC Distribution Width CV 13.4 % (11.6-14.6); RBC Distribution Width SD 45.2 fl (35.1-43.9); Red Blood Count 3.85 M/mm3 (4.2-5.4); White Blood Count 15.4 K/mm3 (4.4-11.0)
[2022-03-24 08:11] LABS: Anion Gap 4 (5-15); BUN 27 mg/dL (7-18); BUN/Creat Ratio 29.3 RATIO (10-20); Calcium,Total 8.2 mg/dL (8.5-10.1); Chloride 103 mmol/L (98-107); Creatinine, Serum 0.92 mg/dL (0.55-1.02); EST Glomerular Filtration Rate 62 mL/min (>60); Est Glom Filt Rate - Afr Amer 75 mL/min (>60); Estimated Creatinine Clearance 39.67 ml/min; Glucose 90 mg/dL (74-106); Potassium 4.6 mmol/L (3.5-5.1); Sodium Level 134 mmol/L (136-145)
[2022-03-24] MEDS: Tuberculin,Purif.prot.deriv. 50 TU/ML Vial 0.1 ML ID (09:48)
[2022-03-24] MEDS: Acetaminophen 500 MG Tablet 1000 MG PO ×2 (09:54→21:31)
[2022-03-24 14:00] VITALS: BP 107/55; PULSE 73; RESP 16; TEMP 37.4; O2SAT 95
[2022-03-24] MEDS: Rivaroxaban 10 MG Tablet PO (16:49)
[2022-03-24] MEDS: Senna/Docusate Sodium 1 Tablet PO (16:50)
--- NOTE | 2022-03-24 19:55 | NURSING ---
Rosemaryew in pt's room. Calls w/ concerns re: sore to left side. Pt lifted gown and small, pink, sheared area noted to lt lateral breast. No active drainage noted. Denies any c/o pain or discomfort. No sxs infection noted. Will continue to monitor at this time.
[2022-03-24] MEDS: oxyCODONE 5 MG Tablet PO (21:32)
[2022-03-25] MEDS: Polyethylene Glycol 3350 17 GM PACKET PO (04:54)
[2022-03-25] MEDS: Acetaminophen 500 MG Tablet 1000 MG PO (04:54)
[2022-03-25] MEDS: Lidocaine 5% Patch 1 PATCH TOPICAL (04:55)
[2022-03-25] MEDS: oxyCODONE 5 MG Tablet PO (04:56)
[2022-03-25] MEDS: Senna/Docusate Sodium 1 Tablet PO ×2 (04:57→17:18)
[2022-03-25] MEDS: Menthol/Lanolin/Calamine/Znox 113 GM Tube 1 APPLIC TOPICAL ×2 (05:02→17:19)
[2022-03-25 10:00] VITALS: PULSE 107; RESP 18; O2SAT 98
--- NOTE | 2022-03-25 10:57 | NURSING ---
Roofing Layer Note: MDS section F and interview complete for CÉSAR of 03/23/22.
[2022-03-25] MEDS: Gabapentin 100 MG Capsule PO ×2 (11:52→17:18)
[2022-03-25] MEDS: traMADol 50 MG Tablet PO (11:54)
[2022-03-25 14:00] VITALS: BP 112/61; PULSE 97; RESP 18; TEMP 37.2; O2SAT 91
[2022-03-25] MEDS: Rivaroxaban 10 MG Tablet PO (17:18)
[2022-03-26] MEDS: Lidocaine 5% Patch 1 PATCH TOPICAL (05:52)
[2022-03-26] MEDS: Gabapentin 100 MG Capsule PO ×3 (08:39→17:46)
[2022-03-26] MEDS: Menthol/Lanolin/Calamine/Znox 113 GM Tube 1 APPLIC TOPICAL ×2 (09:39→17:46)
[2022-03-26] MEDS: oxyCODONE 5 MG Tablet PO (09:40)
[2022-03-26 14:00] VITALS: BP 83/53; PULSE 101; RESP 14; TEMP 36.6; O2SAT 98
[2022-03-26] MEDS: Rivaroxaban 10 MG Tablet PO (17:46)
[2022-03-26] MEDS: Senna/Docusate Sodium 1 Tablet PO (17:46)
[2022-03-26 19:09] VITALS: BP 104/51; PULSE 94
[2022-03-26] MEDS: traMADol 50 MG Tablet PO (20:12)
[2022-03-26 20:19] VITALS: PULSE 89; RESP 16; O2SAT 92
[2022-03-27] MEDS: Lidocaine 5% Patch 1 PATCH TOPICAL (05:36)
[2022-03-27] MEDS: Senna/Docusate Sodium 1 Tablet PO ×2 (05:36→17:43)
[2022-03-27] MEDS: Polyethylene Glycol 3350 17 GM PACKET PO (05:36)
[2022-03-27] MEDS: Menthol/Lanolin/Calamine/Znox 113 GM Tube 1 APPLIC TOPICAL ×2 (05:40→17:45)
--- NOTE | 2022-03-27 05:44 | NURSING ---
No BM for last few days, patient refused suppository at this time, requesting prune juice, prune juice given.
--- NOTE | 2022-03-27 07:40 | MDS.RN ---
Information for the mds was obtained from review of the clinical record, interview of resident, staff, and direct observation of resident's care.
[2022-03-27] MEDS: Gabapentin 100 MG Capsule PO ×3 (08:07→17:45)
[2022-03-27] MEDS: oxyCODONE 5 MG Tablet PO (10:46)
[2022-03-27] MEDS: traMADol 50 MG Tablet PO (12:49)
[2022-03-27 14:00] VITALS: BP 114/67; PULSE 97; RESP 16; TEMP 36.9; O2SAT 95
[2022-03-27] MEDS: Rivaroxaban 10 MG Tablet PO (17:43)
[2022-03-27] MEDS: Bisacodyl 5 MG Tablet 10 MG PO (18:25)
[2022-03-28] MEDS: Lidocaine 5% Patch 1 PATCH TOPICAL (05:43)
[2022-03-28] MEDS: Senna/Docusate Sodium 1 Tablet PO ×2 (05:45→17:27)
[2022-03-28] MEDS: Menthol/Lanolin/Calamine/Znox 113 GM Tube 1 APPLIC TOPICAL ×2 (05:45→17:27)
[2022-03-28] MEDS: Polyethylene Glycol 3350 17 GM PACKET PO (05:45)
[2022-03-28] MEDS: Gabapentin 100 MG Capsule PO ×3 (08:14→17:27)
[2022-03-28] MEDS: traMADol 50 MG Tablet PO ×2 (08:16→17:29)
--- NOTE | 2022-03-28 09:40 | NURSING ---
Answered pt's call light, pt stated that she pushed call light four times and was not answered. pt requesting to lay down. pt unaware that repeatedly pushing call light does not resend alert. Call light was active for 2mins as this nurse looked at call light time upon answering. This nurse assisted pt to bed. Will provide education on how the call light alert works.
[2022-03-28] MEDS: oxyCODONE 5 MG Tablet PO ×2 (12:03→20:56)
[2022-03-28 14:00] VITALS: BP 106/66; PULSE 77; RESP 14; TEMP 37; O2SAT 96
[2022-03-28] MEDS: Rivaroxaban 10 MG Tablet PO (17:27)
--- NOTE | 2022-03-28 19:23 | NURSING ---
Dr Oneil to unit, he stated he will see pt on Friday for possible injection.
[2022-03-28 23:30] VITALS: PULSE 86; RESP 16; O2SAT 95
[2022-03-29] MEDS: oxyCODONE 5 MG Tablet PO ×3 (05:48→20:54)
[2022-03-29] MEDS: Lidocaine 5% Patch 1 PATCH TOPICAL (05:49)
[2022-03-29] MEDS: Menthol/Lanolin/Calamine/Znox 113 GM Tube 1 APPLIC TOPICAL ×2 (05:54→18:08)
[2022-03-29 06:21] LABS: Bedside Glucose 89 mg/dL (74-106)
[2022-03-29] MEDS: Polyethylene Glycol 3350 17 GM PACKET PO (08:42)
[2022-03-29] MEDS: Gabapentin 100 MG Capsule PO ×2 (08:45→18:10)
--- NOTE | 2022-03-29 09:11 | RAD_ITS ---
STUDY: X-RAY - PELVIS REASON FOR EXAM: Female, 82 years old. Lower back pain TECHNIQUE: One view of the pelvis was obtained. COMPARISON: None. FINDINGS: There is a non-specific bowel gas pattern. Normal visualized soft tissue structures. Normal bilateral iliac wings, sacroiliac joints and visualized sacrum. Normal visualized bilateral superior and inferior pubic rami. Normal pubic symphysis. Normal ischial tuberosities. Normal visualized right femoral head. Normal right acetabulum. Normal right hip joint. Normal visualized left femoral head. Normal left acetabulum. Normal left hip joint. RAD/Pelvis 1 or 2 Views IMPRESSION: Normal x-ray examination of the pelvis. Electronically Signed: Yuri Richey MD at 9:36 EDT ,
--- NOTE | 2022-03-29 09:11 | RAD_ITS ---
STUDY: X-RAY - SACRUM/COCCYX REASON FOR EXAM: Female, 82 years old. Lower back pain TECHNIQUE: 3 view(s) of the sacrum and coccyx were obtained. COMPARISON: None. FINDINGS: Normal bilateral sacroiliac joints. Normal visualized sacral ala and fused sacral bodies. Normal sacrococcygeal junction with a normal angulation. Normal coccygeal segments. The presacral soft tissue structures are unremarkable. RAD/Sacrum-Coccyx min 2 Views IMPRESSION: Normal x-rays of the sacrum and coccyx. Electronically Signed: Yuri Richey MD at 9:35 EDT ,
--- NOTE | 2022-03-29 09:28 | NURSING ---
pt off unit to xray
--- NOTE | 2022-03-29 09:38 | NURSING ---
pt returned to room from xray
--- NOTE | 2022-03-29 09:57 | NURSING ---
hi lo given to pt to assist with transfers d/t height.
[2022-03-29 10:00] VITALS: PULSE 99; RESP 16; O2SAT 97
[2022-03-29 16:38] VITALS: BP 117/63; PULSE 89; RESP 14; TEMP 37.2; O2SAT 90
[2022-03-29] MEDS: Rivaroxaban 10 MG Tablet PO (18:07)
[2022-03-30] MEDS: Lidocaine 5% Patch 1 PATCH TOPICAL (06:02)
[2022-03-30] MEDS: Gabapentin 100 MG Capsule PO ×3 (07:47→17:58)
[2022-03-30] MEDS: Menthol/Lanolin/Calamine/Znox 113 GM Tube 1 APPLIC TOPICAL ×2 (12:09→17:59)
[2022-03-30 14:00] VITALS: BP 125/62; PULSE 92; RESP 18; TEMP 38.8; O2SAT 91
--- NOTE | 2022-03-30 15:41 | NURSING ---
Pt more lethargic this shift Vitals taken Temp 101.9 temporal BP 125/62 Pulse 92 Sp02 91% RA Lungs CTA Pt denies SOB Cough and Pain at this time. Dr. Escalera updated and N.O. for Urinalysis Chest X-ray BMP CBC and Covid Swab. Pt Straight cathed pt using sterile technique for 120 cc of Kaylen Clear Urine with Foul odor. Pt tolerated well. Will continue to monitor call light within reach.
[2022-03-30 15:44] LABS: Mucous, Urine 0 SEEN /hpf (<or=2+); Squamous Epithelial Cells - UA 0 SEEN /hpf (5-10)
--- NOTE | 2022-03-30 15:45 | NURSING ---
Pt off floor for chest x-ray.
[2022-03-30 15:46] LABS: Color, Urine Yellow (Yellow); Glucose, Dipstick Normal (Normal); Ketone-Dipstick 5 mg/dl (Negative); Leukocyte Esterase-Dipstick 25 /ul (Negative); Nitrite-Dipstick Negative (Negative); Occult Blood-Urine 250 /ul (Negative); Protein-Dipstick 30 mg/dl (Negative); Specific Gravity, Urine 1.015 (1.002-1.030); Urine Bilirubin Dipstick Negative (Negative); Urine Clarity Clear (Clear); Urine Urobilinogen Normal (Normal)
--- NOTE | 2022-03-30 15:50 | RAD_ITS ---
STUDY: AP UPRIGHT AND LATERAL CHEST X-RAY SERIES OF 1556 HOURS ON 03/30/2022 REASON FOR EXAM: 82 year old female with fever and lethargy. TECHNIQUE: A 2 view upright chest x-ray was performed per protocol COMPARISON: None. FINDINGS: Mild demineralization. Moderate thoracic kyphosis. Moderate cardiomegaly without heart failure. No pulmonary infiltrates, atelectasis, effusion, pulmonary mass lesions. No pneumonia, pneumonitis or bronchitis. Tortuous thoracic aorta. No free subdiaphragmatic air. RAD/Chest PA and Lateral IMPRESSION: 1. Moderate cardiomegaly without heart failure. 2. No other evidence of active cardiopulmonary disease. 3. No pneumonia, pneumonitis or bronchitis. 4. Moderate thoracic kyphosis. 5. Mild demineralization. Electronically Signed: Rahul Silvestre MD at 18:23 EDT ,
[2022-03-30 15:55] LABS: Bacteria 2+ /hpf (None Seen); Red Blood Cells-Urine 0-5 SEEN /hpf (0-5); White Blood Cells 10-25 SEEN /hpf (0-5)
[2022-03-30 16:21] LABS: Absolute Lymphocyte Count 0.78 X10^3/uL (0.83-4.51); Absolute Neutrophil Count 11.4 X10^3/uL (2.0-7.7); Basophil# 0.07 X10^3/uL; Basophil% 0.5 % (0-1); Eosinophil# 0.03 X10^3/uL; Eosinophils% 0.2 % (0-5); Hemoglobin 11.6 g/dL (12.0-15.0); Lymphocyte # 0.78 X10^3/ul (0.83-4.51); Lymphocyte % 5.8 % (19-41); Mean Corp Hgb Conc 33.1 g/dL (32-36); Mean Corpuscular Hgb 29.8 pg (27.0-32.0); Mean Platelet Vol. 10.3 fl (6.2-12.0); Monocyte# 1.18 X10^3/uL; Monocyte% 8.7 % (0-10); NRBC Flagged by Analyzer 0 % (0-5); Neutrophil # 11.35 X10^3/uL (2.7-7.7); Neutrophil % 84.2 % (47-70); Platelet Count 320 K/mm3 (150-450); RBC Distribution Width CV 13.3 % (11.6-14.6); RBC Distribution Width SD 43.7 fl (35.1-43.9); Red Blood Count 3.89 M/mm3 (4.2-5.4); White Blood Count 13.5 K/mm3 (4.4-11.0)
[2022-03-30 17:09] LABS: Anion Gap 10 (5-15); BUN 28 mg/dL (7-18); BUN/Creat Ratio 19.7 RATIO (10-20); Calcium,Total 9.6 mg/dL (8.5-10.1); Chloride 100 mmol/L (98-107); Creatinine, Serum 1.42 mg/dL (0.55-1.02); EST Glomerular Filtration Rate 38 mL/min (>60); Est Glom Filt Rate - Afr Amer 46 mL/min (>60); Glucose 91 mg/dL (74-106); Potassium 4.6 mmol/L (3.5-5.1); Sodium Level 134 mmol/L (136-145)
[2022-03-30] MEDS: Senna/Docusate Sodium 1 Tablet PO (17:58)
[2022-03-30] MEDS: Rivaroxaban 10 MG Tablet PO (17:59)
[2022-03-30] MEDS: FLUCONAZOLE 150 MG TABLET PO (19:46)
[2022-03-30] MEDS: 0.9% Normal Saline 1,000 ML 75 ML IV (19:47)
[2022-03-30 20:53] VITALS: PULSE 89; RESP 16; O2SAT 91
--- NOTE | 2022-03-30 21:01 | NURSING ---
Patient receiving IV fluids via peripheral line in right wrist, rate at 75ml/hour. Will continue to monitor.
[2022-03-30] MEDS: Acetaminophen 500 MG Tablet 1000 MG PO (23:37)
[2022-03-31] MEDS: Lidocaine 5% Patch 1 PATCH TOPICAL (04:15)
[2022-03-31] MEDS: Menthol/Lanolin/Calamine/Znox 113 GM Tube 1 APPLIC TOPICAL ×2 (04:16→17:48)
[2022-03-31 06:18] LABS: Absolute Lymphocyte Count 0.98 X10^3/uL (0.83-4.51); Absolute Neutrophil Count 6.6 X10^3/uL (2.0-7.7); Basophil# 0.07 X10^3/uL; Basophil% 0.8 % (0-1); Eosinophil# 0.11 X10^3/uL; Eosinophils% 1.2 % (0-5); Lymphocyte # 0.98 X10^3/ul (0.83-4.51); Mean Corp Hgb Conc 32.3 g/dL (32-36); Mean Corpuscular Hgb 29.3 pg (27.0-32.0); Mean Corpuscular Volume 90.9 fL (81-99); Mean Platelet Vol. 10.6 fl (6.2-12.0); Monocyte# 1.09 X10^3/uL; Monocyte% 12.3 % (0-10); NRBC Flagged by Analyzer 0 % (0-5); Neutrophil # 6.59 X10^3/uL (2.7-7.7); Neutrophil % 74.2 % (47-70); Platelet Count 274 K/mm3 (150-450); RBC Distribution Width CV 13.5 % (11.6-14.6); RBC Distribution Width SD 44.6 fl (35.1-43.9); Red Blood Count 3.41 M/mm3 (4.2-5.4); White Blood Count 8.9 K/mm3 (4.4-11.0)
[2022-03-31 06:40] LABS: Anion Gap 6 (5-15); BUN 33 mg/dL (7-18); BUN/Creat Ratio 20.8 RATIO (10-20); Calcium,Total 8.9 mg/dL (8.5-10.1); Chloride 104 mmol/L (98-107); Creatinine, Serum 1.59 mg/dL (0.55-1.02); EST Glomerular Filtration Rate 33 mL/min (>60); Est Glom Filt Rate - Afr Amer 40 mL/min (>60); Estimated Creatinine Clearance 22.95 ml/min; Glucose 102 mg/dL (74-106); Potassium 4.3 mmol/L (3.5-5.1); Sodium Level 134 mmol/L (136-145)
[2022-03-31] MEDS: Gabapentin 100 MG Capsule PO ×3 (08:05→17:48)
[2022-03-31] MEDS: Senna/Docusate Sodium 1 Tablet PO ×2 (08:05→17:49)
[2022-03-31] MEDS: 0.9% Normal Saline 1,000 ML 75 ML IV ×2 (08:48→22:13)
[2022-03-31 14:00] VITALS: BP 117/66; PULSE 83; RESP 22; TEMP 37.1; O2SAT 90
[2022-03-31] MEDS: Rivaroxaban 10 MG Tablet PO (17:48)
[2022-03-31] MEDS: Acetaminophen 500 MG Tablet 1000 MG PO (20:35)
[2022-03-31] MEDS: oxyCODONE 5 MG Tablet PO (20:36)
[2022-04-01] MEDS: Lidocaine 5% Patch 1 PATCH TOPICAL (05:13)
[2022-04-01] MEDS: Senna/Docusate Sodium 1 Tablet PO ×2 (05:15→17:38)
[2022-04-01] MEDS: Polyethylene Glycol 3350 17 GM PACKET PO (05:15)
[2022-04-01] MEDS: Menthol/Lanolin/Calamine/Znox 113 GM Tube 1 APPLIC TOPICAL ×2 (05:20→17:39)
[2022-04-01 06:34] LABS: Anion Gap 6 (5-15); BUN 30 mg/dL (7-18); BUN/Creat Ratio 20.7 RATIO (10-20); Calcium,Total 8.7 mg/dL (8.5-10.1); Chloride 108 mmol/L (98-107); Creatinine, Serum 1.45 mg/dL (0.55-1.02); EST Glomerular Filtration Rate 37 mL/min (>60); Est Glom Filt Rate - Afr Amer 45 mL/min (>60); Estimated Creatinine Clearance 25.17 ml/min; Glucose 101 mg/dL (74-106); Sodium Level 138 mmol/L (136-145)
[2022-04-01] MEDS: traMADol 50 MG Tablet PO ×2 (07:49→17:38)
[2022-04-01] MEDS: Gabapentin 100 MG Capsule PO ×3 (07:56→17:38)
[2022-04-01] MEDS: 0.9% Normal Saline 1,000 ML 75 ML IV ×2 (10:58→23:44)
[2022-04-01] MEDS: oxyCODONE 5 MG Tablet PO ×2 (11:56→21:51)
[2022-04-01 14:00] VITALS: BP 120/60; PULSE 80; RESP 14; TEMP 36.7; O2SAT 90
--- NOTE | 2022-04-01 18:01 | NURSING ---
Dr. Oneil to unit, states he plans to perform procedure on Friday, pt is to be NPO.
[2022-04-01 22:00] VITALS: PULSE 83
[2022-04-02] MEDS: Polyethylene Glycol 3350 17 GM PACKET PO (05:45)
[2022-04-02] MEDS: Lidocaine 5% Patch 1 PATCH TOPICAL (05:46)
[2022-04-02] MEDS: Menthol/Lanolin/Calamine/Znox 113 GM Tube 1 APPLIC TOPICAL ×2 (05:47→18:28)
[2022-04-02] MEDS: traMADol 50 MG Tablet PO ×2 (05:47→12:44)
[2022-04-02] MEDS: Senna/Docusate Sodium 1 Tablet PO ×2 (05:47→18:29)
[2022-04-02] MEDS: Gabapentin 100 MG Capsule PO (08:23)
--- NOTE | 2022-04-02 09:39 | NURSING ---
dr sanchez updated on staff concern regarding lethargy and low motivation. New order to DC neurontin.
[2022-04-02 12:31] VITALS: PULSE 75; RESP 18; O2SAT 96
[2022-04-02] MEDS: 0.9% Normal Saline 1,000 ML 75 ML IV (12:48)
--- NOTE | 2022-04-02 13:03 | NURSING ---
pt noted to have hematuria, cont to c/o back pain. pt did report she had kidney stones back in 2019. stated last week she had abd discomfort. dr sanchez udprajinder, new order for CT abd/pelvis. pt and family updated.
--- NOTE | 2022-04-02 13:33 | PCA ---
Called to get a preauthorization for her CT abdomen & Pelvis -no contrast DX Kidney Stones, after 12 minutes on the phone, ict sales representative told me that she does not need a pre-op for this code. She gave me the reference number which was the same number as the group number.
[2022-04-02 14:00] VITALS: BP 116/73; PULSE 91; RESP 16; TEMP 37.4; O2SAT 93
--- NOTE | 2022-04-02 14:22 | NURSING ---
pt off unit to CT scan at this time via WC
--- NOTE | 2022-04-02 14:51 | NURSING ---
pt returned from CT scan, assisted to BEd, positioned for comfort. call light in reach. sister at bedside.
--- NOTE | 2022-04-02 15:15 | NURSING ---
notified Dr sanchez of pt CT scan results. new order to get MRI Lumbar spine with and without contrast for possible discitis & osteomyelitis. Also updated Dr Oneil d/t pt suppose to be having back injection tomorrow. pt and family updated.
--- NOTE | 2022-04-02 15:46 | PCA ---
Spoke with quinten Coe she said there is no authorization needed for this MRI
--- NOTE | 2022-04-02 17:14 | NURSING ---
pt off unit via WC to MRI at this time. pt removed graduation gold ring, locked in med box in room
--- NOTE | 2022-04-02 21:11 | NURSING ---
Recieved call from Dr Umanzor from radiology with following findings: osteomeyelitis; lg epidural abscess; and severe canal stenosis. Dr. Escalera made aware and new order received to send patient to ER. Informed patient, and called and informed nephew. Report called down to ER and patient taken down approx [phone].
--- NOTE | 2022-04-03 07:45 | PCM.DC.SUM ---
Providers Date of Admission: 03/16/22 Primary Care Physician: Linda Primary Care Phys Consultations 03/28/22 16:41 Consult: Pain Management Routine Consulting Provider: Veto Oneil Reason for Consult: Pain EMERGENT Consult: No MD Notified: Yes Date Notified: 03/28/22 Time Notified: 19:16 Method of Notification: Verbal Reason For Visit: DEBILITY Diagnosis Discharge Diagnosis (1) Debility: Status: Acute Code(s): R53.81 - Other malaise (2) Low back pain: Status: Acute Code(s): M54.50 - Low back pain, unspecified (3) Urinary tract infection: Status: Acute Code(s): N39.0 - Urinary tract infection, site not specified (4) Acute kidney injury: Status: Acute Code(s): N17.9 - Acute kidney failure, unspecified (5) Hypokalemia: Status: Acute Code(s): E87.6 - Hypokalemia (6) Kidney stones: Status: Acute Code(s): N20.0 - Calculus of kidney Medications at Discharge Home Medications acetaminophen [Tylenol Ex Str Rapid Release] 1,000 mg PO Q6H PRN PRN 04/02/22 bisacodyl [Dulcolax (bisacodyl)] 10 mg PO DAILY 04/02/22 lidocaine 1.8 patch TRANSDERMAL DAILY 04/02/22 menthol-zinc oxide [Calmoseptine] 1 applic TOPICAL BID 04/02/22 oxycodone [OxyIR] 5 mg PO Q4H PRN 04/02/22 polyethylene glycol 3350 [Miralax] 17 g PO DAILY 04/02/22 senna-docusate sodium [Senokap-DSS] 1 cap PO BID 04/02/22 tramadol [Ultram] 50 mg PO Q6H PRN 04/02/22 Hospital Course Operations None Procedures None Summary of Care Provided Minutes Spent on Discharge: 30 Hospital Course: 82 year old female with below past medical history hospitalized for low back pain, complicated by urinary tract infection, acute kidney injury, hypokalemia, admitted to TCU with debility, here for rehabilitation, strengthening, prior to discharge home alone. 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 [facility] ED for evaluation, admission to hospital. Weight / BMI Weight Weight: 85.457 kg Body Mass Index (BMI) 35.6 ABG / Lab / Microbiology Data Result Diagrams: 03/31/22 05:45 04/01/22 05:26 Microbiology: Microbiology 03/30/22 15:30 Urine, Catheterized Urine Culture - Final Escherichia coli 03/30/22 15:20 Nasal Secretion SARS-CoV-2 Antigen (Rapid) - Final 03/23/22 08:30 Nasal Secretion SARS-CoV-2 Antigen (Rapid) - Final D/C Instructions Discharge Diet: No restrictions Weight Bearing Status: Weight bearing as tolerated Call your doctor if you observe: Fever of 101 or Higher, Inability to urinate, Inability to have a bowel movement, Shortness of breath, Dizziness, Fainting spells, Swelling in the ankles, Chest pain and Uncontrolled pain Additional Instructions: Discharge to [facility] ED for evaluation, admission to hospital. Meaningful Use Info Meaningful Use Diagnoses (Choose all that apply): None applicable Discharge Plan Admission Admit Date/Time: 03/16/22 17:04 Primary Reason for Your Visit: Debility. Attending Provider: Merlin Escalera Chi Primary Care Provider: Suze Soliz,No Primary Consulting Providers: Veto Oneil Instructions Additional Instructions / Restrictions: Discharge to [facility] ED for evaluation, admission to hospital. Discharge Orders/Prescriptions Prescriptions: No Action polyethylene glycol 3350 [Miralax] 17 gram Powder In Packet 17 g PO DAILY RF: 0 tramadol [Ultram] 50 mg Tablet 50 mg PO Q6H PRN (Reason: Pain) RF: 0 acetaminophen [Tylenol Ex Str Rapid Release] 500 mg Tablet 1,000 mg PO Q6H PRN PRN (Reason: Pain) RF: 0 oxycodone [OxyIR] 5 mg Capsule 5 mg PO Q4H PRN (Reason: Pain) RF: 0 bisacodyl [Dulcolax (bisacodyl)] 5 mg Tablet,Delayed Release (Dr/Ec) 10 mg PO DAILY RF: 0 Senokap-DSS Capsule 1 cap PO BID RF: 0 menthol-zinc oxide [Calmoseptine] 0.44-20.6 % Ointment 1 applic TOPICAL BID RF: 0 lidocaine 1.8 % Adhesive Patch,Medicated 1.8 patch transdermal DAILY RF: 0 Referrals / Follow Up: Care Physician,No Primary [Primary Care Provider] - Disposition Disposition (needs filled in before D/C Order can be placed): Acute Care Hospital [facility]
== END 2022-04-02 23:45 | disposition short-term general hospital (02) | DRG 552 ==
PROVIDERS: Admitting Provider Family Medicine Geriatric Medicine; Visit Provider Family Medicine Geriatric Medicine
DX: M43.16 Spondylolisthesis, lumbar region (principal); N17.9 Acute kidney failure, unspecified; N39.0 Urinary tract infection, site not specified; B35.4 Tinea corporis; E87.6 Hypokalemia; M25.561 Pain in right knee
CPT/HCPCS: 36415; 71046; 72170; 72220; 80048; 81001; 82962; 85025; 87077; 87086; 87088; 87186; 87426; 87811; 92507; 92610; 97110; 97116; 97129; 97162; 97166; 97530; 97535; 97802; J7030

== ENCOUNTER 2022-04-02 21:16 | Emergency (ER) | payer OTHER, SELFPAY ==
[2022-04-02 21:17] VITALS: BP 134/61; PULSE 93; RESP 18; TEMP 37; O2SAT 93; BMI 34.0
--- NOTE | 2022-04-02 21:33 | ED.RN ---
Adalberto (POA) contacted on patient behalf. tam hernandez [phone]
[2022-04-02] MEDS: metroNIDAZOLE 500 MG/100 ML BAG 100 MG IV (22:15)
--- NOTE | 2022-04-02 22:16 | EDS_ITS ---
HPI History of Present Illness Chief Complaint: Back Informant: patient Narrative Narrative: Presenting for the chief complaint of back pain and abnormal MRI. Patient appears to have been admitted to the hospital with back pain and UTI at the end of February and was transferred to TCU rehab. It appears that she was receiving cefdinir as an antibiotic until the . Today she underwent a flank CT to evaluate for kidney stone due to the back pain and had some abnormal lumbar findings and an MRI was obtained which demonstrated discitis osteomyelitis severe canal stenosis at the level of L1 and L2 as well as associated epidural abscesses and paraspinal musculature abscesses. Therefore she was transferred to emergency. In speaking with the patient we will be transferring her to [facility]. She denies any loss of bowel or bladder control. [facility] Medical History Debility General weakness Kidney calculi Low back pain UTI (urinary tract infection) Home Medications acetaminophen [Tylenol Ex Str Rapid Release] 1,000 mg PO Q6H PRN PRN 04/02/22 [History Last Taken Unknown] bisacodyl [Dulcolax (bisacodyl)] 10 mg PO DAILY 04/02/22 [History Last Taken Unknown] lidocaine 1.8 patch TRANSDERMAL DAILY 04/02/22 [History Last Taken Unknown] menthol-zinc oxide [Calmoseptine] 1 applic TOPICAL BID 04/02/22 [History Last Taken Unknown] oxycodone [OxyIR] 5 mg PO Q4H PRN 04/02/22 [History Last Taken Unknown] polyethylene glycol 3350 [Miralax] 17 g PO DAILY 04/02/22 [History Last Taken Unknown] senna-docusate sodium [Senokap-DSS] 1 cap PO BID 04/02/22 [History Last Taken Unknown] tramadol [Ultram] 50 mg PO Q6H PRN 04/02/22 [History Last Taken Unknown] Allergy/AdvReac Type Severity Reaction Status Date / Time bee venom protein (honey bee) AdvReac Other Verified 04/02/22 21:19 Social History household members: none Smoking Status: Never smoker alcohol intake: never substance use type: does not use ROS ROS ED Constitutional Constitutional ED: Denies chills or weight loss Eyes Eyes: Denies change in vision or diplopia ENT ENT ED: Denies ear pain, rhinorrhea or sore throat Cardiovascular Cardiovascular: Denies chest pain, orthopnea, palpitations or racing heartbeat Respiratory/Chest Respiratory/Chest: Denies cough, dyspnea or orthopnea Gastrointestinal Gastrointestinal: Reports nausea; Denies abdominal pain, diarrhea or vomiting Genitourinary Genitourinary ED: Denies dysuria, hematuria or urinary frequency Musculoskeletal Musculoskeletal: Reports back pain; Denies arthralgias or myalgias Integumentary Denies abscess or rash Neurologic Neurologic: Denies headache(s) or weakness Psychiatric Psychiatric: Denies anxiety, depression, suicidal ideation or suicidal thoughts Endocrine Endocrinology: Denies polydipsia, polyphagia or polyuria Allergic/Immunologic Allergic/Immunologic ED: Denies mouth swelling, tongue swelling or urticaria EXAM Physical Exam Const Vital Signs: 04/02/22 21:17 Temperature 98.6 F Temperature Source Oral Pulse Rate 93 Respiratory Rate 18 Blood Pressure 134/61 H Blood Pressure Mean 85 Pulse Ox 93 Oxygen Delivery Method Room Air Positive well nourished and well developed General Appearance ED: well developed HEENT Reports normocephalic, head/scalp atraumatic and moist mucous membranes Negative for trauma Eyes PERRL and EOMs intact bilaterally Neck no lymphadenopathy, supple and no JVD Resp normal respiratory effort and clear to auscultation bilaterally Cardio regular rate, regular rhythm and no murmurs GI normal to inspection, nondistended, normoactive bowel sounds and non-tender Palpation: soft Back/Spine no CVA tenderness and normal ROM Extremity normal to inspection General Extremety ED: Negative for edema General Extremity: Negative for edema Neuro oriented x3 and CN's II-XII intact bilaterally Neuro Narrative: Sensation is intact over the hips and the legs. She moves all extremities. Sensorium / Orientation: alert Motor Exam: strength 5/5 throughout Deep Tendon Reflexes: Rt Patellar (L4): 2+ and Lt Patellar (L4): 2+ Deep Tendon Reflexes Back: Rt Patellar (L4): 2+ and Lt Patellar (L4): 2+ Psych mental status grossly normal Mood & Affect: Negative for depressed or tearful Skin no rashes or lesions noted and no wounds MDM MDM MDM Narrative Medical decision making narrative: Blood cultures obtained and blood work ordered. Patient received vancomycin Flagyl and Rocephin. I spoke with the transfer center at [facility]. Lab Data Labs: Laboratory Results - last 24 hr 04/02/22 04/02/22 04/02/22 22:00 22:00 22:00 WBC 10.7 RBC 3.25 L Hgb 9.7 L Hct 29.8 L MCV 91.7 MCH 29.8 MCHC 32.6 RDW Std Deviation 44.9 H RDW Coeff of Enedina 13.2 Plt Count 316 MPV 10.2 Immature Gran % (Auto) 0.700 Neut % (Auto) 78.9 H Lymph % (Auto) 9.4 L [place] % (Auto) 9.1 Eos % (Auto) 1.2 Baso % (Auto) 0.7 Absolute Neuts (auto) 8.5 H Absolute Lymphs (auto) 1.01 Nucleated RBC % 0 PT 16.1 H INR 1.3 APTT 36.1 Sodium 136 Potassium 4.1 Chloride 106 Carbon Dioxide 22.0 Anion Gap 8 BUN 27 H Creatinine 1.59 H Estim Creat Clear Calc 23.96 Est GFR (MDRD) Af Amer 40 L Est GFR (MDRD) Non-Af 33 L BUN/Creatinine Ratio 17.0 Glucose 96 Calcium 8.8 Total Bilirubin 0.50 AST 8 L ALT 10 L Alkaline Phosphatase 97 Total Protein 6.0 L Albumin 1.7 L Globulin 4.3 H Albumin/Globulin Ratio 0.4 L Discharge Plan Triage Chief Complaint: Back ED Provider: Castro Barrera Dx/Rx/DC Orders Clinical Impression: Discitis, Acute osteomyelitis of lumbar spine, Abscess in epidural space of lumbar spine, Abscess of paraspinal muscles Prescriptions: No Action polyethylene glycol 3350 [Miralax] 17 gram Powder In Packet 17 g PO DAILY RF: 0 tramadol [Ultram] 50 mg Tablet 50 mg PO Q6H PRN (Reason: Pain) RF: 0 acetaminophen [Tylenol Ex Str Rapid Release] 500 mg Tablet 1,000 mg PO Q6H PRN PRN (Reason: Pain) RF: 0 oxycodone [OxyIR] 5 mg Capsule 5 mg PO Q4H PRN (Reason: Pain) RF: 0 bisacodyl [Dulcolax (bisacodyl)] 5 mg Tablet,Delayed Release (Dr/Ec) 10 mg PO DAILY RF: 0 Senokap-DSS Capsule 1 cap PO BID RF: 0 menthol-zinc oxide [Calmoseptine] 0.44-20.6 % Ointment 1 applic TOPICAL BID RF: 0 lidocaine 1.8 % Adhesive Patch,Medicated 1.8 patch transdermal DAILY RF: 0 Primary Care Provider: Care Physician,No Primary Referrals: Care Physician,No Primary [Primary Care Provider] - Disposition Disposition: Acute Care Hospital Discharge Location: [facility]
[2022-04-02 22:17] LABS: Absolute Lymphocyte Count 1.01 X10^3/uL (0.83-4.51); Absolute Neutrophil Count 8.5 X10^3/uL (2.0-7.7); Basophil# 0.07 X10^3/uL; Basophil% 0.7 % (0-1); Eosinophil# 0.13 X10^3/uL; Eosinophils% 1.2 % (0-5); Hematocrit 29.8 % (37-47); Hemoglobin 9.7 g/dL (12.0-15.0); Lymphocyte # 1.01 X10^3/ul (0.83-4.51); Lymphocyte % 9.4 % (19-41); Mean Corp Hgb Conc 32.6 g/dL (32-36); Mean Corpuscular Hgb 29.8 pg (27.0-32.0); Mean Corpuscular Volume 91.7 fL (81-99); Mean Platelet Vol. 10.2 fl (6.2-12.0); Monocyte# 0.97 X10^3/uL; Monocyte% 9.1 % (0-10); NRBC Flagged by Analyzer 0 % (0-5); Neutrophil # 8.46 X10^3/uL (2.7-7.7); Neutrophil % 78.9 % (47-70); Platelet Count 316 K/mm3 (150-450); RBC Distribution Width CV 13.2 % (11.6-14.6); RBC Distribution Width SD 44.9 fl (35.1-43.9); Red Blood Count 3.25 M/mm3 (4.2-5.4); White Blood Count 10.7 K/mm3 (4.4-11.0)
[2022-04-02 22:25] LABS: International Normalized Ratio 1.3; Prothrombin Time (Protime)PT. 16.1 SECONDS (11.7-14.9)
[2022-04-02 22:26] LABS: Partial Thromboplast Time 36.1 Seconds (24.1-36.2)
[2022-04-02 22:33] LABS: ALB/GLOB Ratio 0.4 RATIO (0.9-2.4); AST(SGOT) 8 U/L (15-37); Alanine Aminotransfer ALT/SGPT 10 U/L (13-56); Albumin, Serum 1.7 g/dL (3.2-5.0); Alkaline Phosphatase 97 U/L (45-117); Anion Gap 8 (5-15); BUN 27 mg/dL (7-18); Calcium,Total 8.8 mg/dL (8.5-10.1); Chloride 106 mmol/L (98-107); Creatinine, Serum 1.59 mg/dL (0.55-1.02); EST Glomerular Filtration Rate 33 mL/min (>60); Est Glom Filt Rate - Afr Amer 40 mL/min (>60); Estimated Creatinine Clearance 23.96 ml/min; Globulin 4.3 g/dL (2.2-4.2); Glucose 96 mg/dL (74-106); Potassium 4.1 mmol/L (3.5-5.1); Sodium Level 136 mmol/L (136-145)
[2022-04-02 22:51] VITALS: BP 147/76; PULSE 88; RESP 14; O2SAT 97
[2022-04-02 23:08] VITALS: BP 139/71; PULSE 82; RESP 16; TEMP 37; O2SAT 97
[2022-04-02 23:15] LABS: Lactic Acid 0.6 mmol/L (0.4-1.9)
[2022-04-02] MEDS: Ondansetron 4 MG/2 ML Vial IV (23:57)
[2022-04-02] MEDS: Morphine 4 MG/ML Syringe IV (23:57)
[2022-04-03 00:04] VITALS: BP 144/74; PULSE 87; RESP 16; O2SAT 96
--- NOTE | 2022-04-03 10:45 | ED.RN ---
Blood culture result shown to Dr Healy. Pt was treated appropriately here and was transferred to [facility]. They have been notified of pos result
== END 2022-04-03 00:07 | disposition short-term general hospital (02) ==
PROVIDERS: Emergency Provider Emergency Medicine; Visit Provider Emergency Medicine
DX: M48.061 Spinal stenosis, lumbar region without neurogenic claudication (principal); M46.26 Osteomyelitis of vertebra, lumbar region; G06.1 Intraspinal abscess and granuloma; L02.219 Cutaneous abscess of trunk, unspecified; M46.46 Discitis, unspecified, lumbar region; Z79.899 Other long term (current) drug therapy
CPT/HCPCS: 80053; 83605; 85025; 85610; 85730; 87040; 87077; 87149; 87186; 96365; 96366; 96367; 96368; 96375; 99285; J7030; J7040; J7050; A4216; J0696; J2405

== ENCOUNTER → 2022-04-02 | Outpatient (CLI) | payer OTHER, SELFPAY ==
--- NOTE | 2022-04-02 17:00 | MRI_ITS ---
We are attempting to reach an attending provider to discuss findings. An addendum with communication details will be sent when the communication is complete. STUDY: MRI LUMBAR SPINE WITH AND WITHOUT CONTRAST REASON FOR EXAM: Female, 82 years old. DISCITIS, osteomyelitis TECHNIQUE: Standardized fat and water weighted pulse sequences were obtained in the sagittal and axial planes. IV 17ml Dotarem was administered for the contrast portion of the examination. COMPARISON: X-ray March 15, 2022. CT abdomen and pelvis April 02, 2022 FINDINGS: There is marrow edema of L1 and L2 with irregularity of the endplates and fracture of L1 and 60% loss of height. There is edema and fluid at the L1-2 disc space. There is paraspinal soft tissue swelling with nonenhancing fluid signal regions in the psoas muscles compatible with abscesses measuring 2.2 cm on the left and 1.6 cm on the right. T12-L1: Normal endplates. Normal disc height, hydration and morphology. Normal bilateral facet joints. Normal central canal and bilateral lateral recesses. Normal bilateral intervertebral neural foramina. Normal lumbar lordosis. There is grade 1 anterior listhesis at L4-5 . There is no substantial scoliosis. Normal conus medullaris that terminates at the T12 level. L1-2: Disc space narrowing with fluid in the disc space. There is 4.5 x 1.7 cm peripherally enhancing epidural fluid collection compatible with abscess, series 2 and 7 images 06/05 and 07/06. Severe spinal canal stenosis. Bilateral foraminal narrowing. L2-3: Disc bulge. Mild spurring of the bilateral facet joints. Normal central canal and bilateral lateral recesses. Normal bilateral intervertebral neural foramina. L3-4: Disc bulge and spurring. Mild spurring of the bilateral facet joints. Normal central canal and bilateral lateral recesses. Normal bilateral intervertebral neural foramina. L4-5: Disc bulge and spurring. Facet spurring and ligamentum flavum hypertrophy. Moderate canal stenosis. Mild foraminal narrowing. L5-S1: Disc bulge. Spurring of the bilateral facet joints. Normal central canal and bilateral lateral recesses. Normal bilateral intervertebral neural foramina. Normal visualized sacral ala. There is paraspinal soft tissue swelling with nonenhancing fluid signal regions in the psoas muscles compatible with abscesses measuring 2.2 cm on the left and 1.0 cm on the right. 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 Degenerative change with L4-5 canal stenosis. Electronically Signed: Hudson Umanzor MD at 19:49 EDT ,
== END | disposition home or self-care (01) ==
PROVIDERS: Referring Provider Family Medicine Geriatric Medicine; Visit Provider Family Medicine Geriatric Medicine
DX: M46.26 Osteomyelitis of vertebra, lumbar region (principal)
CPT/HCPCS: 72158; A9575; A4216

== ENCOUNTER → 2022-04-02 | Outpatient (CLI) | payer OTHER, SELFPAY ==
--- NOTE | 2022-04-02 14:25 | CT_ITS ---
STUDY: CT ABDOMEN AND PELVIS WITHOUT CONTRAST REASON FOR EXAM: Female, 82 years old. KIDNEY STONE RADIATION DOSAGE (If Supplied By Facility): CTDIvol = ( 12.32 ) mGy, DLP = ( 591.07 ) mGycm TECHNIQUE: Transaxial images were obtained from the dome of the diaphragm to the symphysis pubis without oral contrast, and without intravenous contrast. Sagittal and coronal images were reconstructed. Individualized dose optimization techniques were used for this CT. COMPARISON: None. FINDINGS: Increased linear markings at the lung bases suggestive of either linear atelectasis and/or scarring. The visualized portions of the heart are within normal limits. Normal liver. Normal gallbladder and extrahepatic biliary system. Normal spleen. Normal pancreas. Normal bilateral adrenal glands. Normal right kidney. Normal left kidney. Normal visualized stomach. Normal small intestine. There are scattered colonic diverticula consistent with diverticulosis. The appendix is visualized and appears normal. There is scattered atherosclerotic calcification of the abdominal aorta and its major visceral branches, without a demonstrated aneurysm. Normal inferior vena cava. Normal retroperitoneum. Diffuse bladder wall thickening although the urinary bladder is not completely distended at this time. There is a small umbilical hernia containing fat. Marked degree of disc space narrowing at the L1-L2 level. Irregularity along the inferior inferior endplate of the L1 vertebrae with loss of height of the L1 vertebrae. Possible discitis should BE ruled out. Clinical correlation is recommended. CT/Abdomen/Pelvis without Cont IMPRESSION: Moderate degree of disc space height at the L1-L2 level with irregularity along the inferior endplate of the L1 vertebrae and loss of height of the L1 vertebrae. Discitis and possible osteomyelitis should BE ruled out. Clinical correlation is recommended. MRI may be indicated. Electronically Signed: Samuel Gimenez MD at 14:54 EDT ,
== END | disposition home or self-care (01) ==
PROVIDERS: Visit Provider Family Medicine Geriatric Medicine
DX: N20.2 Calculus of kidney with calculus of ureter (principal)
CPT/HCPCS: 74176

== ENCOUNTER 2022-04-11 17:32 | Inpatient (IN) | payer MEDICARE, OTHER, SELFPAY ==
[2022-04-11 17:41] VITALS: BP 157/75; PULSE 82; RESP 18; TEMP 36.1; O2SAT 94; BMI 34.8
--- NOTE | 2022-04-11 18:25 | RAD_ITS ---
STUDY: X-RAY OF THE ABDOMEN AND PELVIS OF 1829 HOURS ON 04/11/2022 REASON FOR EXAM: 82-year-old female with nausea. TECHNIQUE: A 2 view abdomen series was performed with protocol. COMPARISON: None. FINDINGS: Mild demineralization. No hip fractures. Surgical skin clips in the mid anterior abdomen.. There is no organomegaly. The intestinal gas pattern is unremarkable. There is no evidence of intestinal obstruction. There are no findings of an ileus. Pelvic phleboliths are present. No evidence of abnormal intra-abdominal calcifications or collections of air. Prominent costochondral cartilaginous calcifications are seen. RAD/Abdomen Single View (Portable) IMPRESSION: 1. No abdominal organomegaly. 2. Unremarkable intestinal gas pattern--no intestinal obstruction or ileus. 3. No abnormal intra-abdominal calcifications or collections of air. Normal pelvic phleboliths are present. 4. Mild demineralization. No fractures or dislocations. Electronically Signed: Rahul Silvestre MD at 19:57 EDT ,
--- NOTE | 2022-04-11 20:00 | PCM.HP.STD ---
HPI - General General Date of Admission: 04/11/22 HPI Narrative MADHURI ANAYA, is a 82 Femal who presents with followin03/15/2022 - 03/16/2022 [facility] low back pain, acute kidney injury, hypokalemia, urinary tract infection. 03/16/2022 - 04/02/2022 Transitional Care Unit PT/OT. 04/02/2022 MRI lumbar spine showed discitis, osteomyelitis at L1-L2 with severe canal stenosis and epidural and paraspinal abscess. 04/02/2022 Presented to [facility] Emergency Department. Transferred to [facility]. 04/02/2022 Admit to [facility]. Vancomycin, Zosyn for L1-L2 discitis, osteomyelitis, pending incision, debridement. 04/03/2022 Dr. Deluca performed posterior decompression T12-L3 with evacuation of epidural abscess and application of wound VAC. Cefazolin IV postoperatively. Infectious Disease consulted. PT/OT for debility. 04/03/2022 Infectious Disease recommended continue Vancomycin, Zosyn. Recommend 8 weeks of IV antibiotics. 04/04/2022 Pain management recommended Tylenol, Lidoderm, Oxycodone, Dilaudid, bowel regimen. 04/06/2022 Wound closure. Right tunneled catheter placed. 04/11/2022 Admit to TCU with debility, here for rehabilitation, strengthening, intravenous antibiotics, prior to discharge home alone. [facility] Medical History Debility General weakness Kidney calculi Low back pain UTI (urinary tract infection) Home Medications acetaminophen [Tylenol Ex Str Rapid Release] 1,000 mg PO Q6H PRN PRN 04/02/22 [History Last Taken Unknown] bisacodyl [Dulcolax (bisacodyl)] 10 mg PO DAILY 04/02/22 [History Last Taken Unknown] lidocaine 1.8 patch TRANSDERMAL DAILY 04/02/22 [History Last Taken Unknown] menthol-zinc oxide [Calmoseptine] 1 applic TOPICAL BID 04/02/22 [History Last Taken Unknown] oxycodone [OxyIR] 5 mg PO Q4H PRN 04/02/22 [History Last Taken Unknown] polyethylene glycol 3350 [Miralax] 17 g PO DAILY 04/02/22 [History Last Taken Unknown] senna-docusate sodium [Senokap-DSS] 1 cap PO BID 04/02/22 [History Last Taken Unknown] tramadol [Ultram] 50 mg PO Q6H PRN 04/02/22 [History Last Taken Unknown] cefazolin 2 g IV Q8 04/11/22 [History Last Taken Unknown] famotidine 20 mg PO DAILY 04/11/22 [History Last Taken Unknown] Allergy/AdvReac Type Severity Reaction Status Date / Time bee venom protein (honey bee) AdvReac Other Verified 04/02/22 21:19 Social History household members: none Smoking Status: Never smoker alcohol intake: never substance use type: does not use ROS Constitutional Constitutional: Denies chills, fever(s) or weight gain ENT HEENT: Denies headache(s), nasal congestion or nasal discharge Cardiovascular Cardiovascular: Denies chest pain or palpitations Respiratory/Chest Respiratory/Chest: Denies cough, excessive phlegm production or shortness of breath with exertion Gastrointestinal Gastrointestinal: Denies abdominal pain, nausea or vomiting Genitourinary Genitourinary: Denies dysuria Musculoskeletal Musculoskeletal: Denies joint pain or joint swelling Integumentary Integumentary: Denies rash or wounds Neurologic Neurologic: Denies focal weakness, numbness or tingling Psychiatric Psychiatric: Denies anxiety, auditory hallucinations, depression, homicidal ideation or suicidal ideation Vital Signs Vital Signs Vital Signs: 04/11/22 17:41 Temperature 97.0 F L Temperature Source Temporal Pulse Rate 82 Respiratory Rate 18 Blood Pressure 157/75 H Blood Pressure Mean 102 Blood Pressure Source Monitor Blood Pressure Position Supine Blood Pressure Location Left Arm Pulse Ox 94 Oxygen Delivery Method Room Air Physical Exam Const alert General Appearance: cooperative HEENT normocephalic Eyes PERRL and EOMs intact bilaterally Neck supple, no JVD and no carotid bruits Chest Chest Narrative: Right upper chest tunneled catheter. Resp normal respiratory effort, normal air movement and clear to auscultation bilaterally Cardio regular rate and regular rhythm GI normal to inspection, nondistended, normoactive bowel sounds, non-tender and non-distended Extremity normal capillary refill General Extremity: Negative for edema Skin no rashes or lesions noted General Skin Exam: no breakdown Psych affect normal Appearance: appropriate Results Lab / Micro Data Micro: Microbiology 04/11/22 19:00 Nasal Secretion SARS-CoV-2 Antigen (Rapid) - Final Radiology Impression KUB X-Ray 04/11/22 18:25 IMPRESSION: 1. No abdominal organomegaly. 2. Unremarkable intestinal gas pattern--no intestinal obstruction or ileus. 3. No abnormal intra-abdominal calcifications or collections of air. Normal pelvic phleboliths are present. 4. Mild demineralization. No fractures or dislocations. 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 Debility - PT/OT. Pain - Tylenol 1000mg q6h prn pain (1-3), Tramadol 50mg q6h prn pain (4-5), Oxycodone 5mg q4h prn pain (6-10), Lidoderm 2 patches topical daily. Bowel - senna/colace 1 tablet bid, MOM 30ml daily prn, Dulcolax 10mg daily prn. Adult immunization - Administer pneumonia vaccine, covid19 vaccine, flu vaccine as appropriate. DVT prophylaxis - HAS-BLED score 1 intermediate risk of bleeding, Michelle score 8 high risk of blood clots, overall risk high, Rx Xarelto 10mg daily x 30 days. Lumbar discitis/osteomyelitis/epidural abscess status post debridement - Cefazolin 2gm iv q8h, consult Dr. Mcdonnell regarding length of treatment. GERD - Famotidine 20mg daily. Skin irritation - Calmoseptine topical bid.
[2022-04-11 21:38] VITALS: PULSE 68; RESP 16; O2SAT 93
[2022-04-11] MEDS: Cefazolin 2 GM in 0.9% Normal Saline 100 ML IV (23:21)
[2022-04-11] MEDS: Menthol/Lanolin/Calamine/Znox 113 GM Tube 1 APPLIC TOPICAL (23:30)
[2022-04-11] MEDS: Senna/Docusate Sodium 1 Tablet PO (23:30)
[2022-04-12 05:50] LABS: Absolute Lymphocyte Count 1.42 X10^3/uL (0.83-4.51); Absolute Neutrophil Count 7.9 X10^3/uL (2.0-7.7); Basophil# 0.06 X10^3/uL; Basophil% 0.6 % (0-1); Eosinophil# 0.05 X10^3/uL; Eosinophils% 0.5 % (0-5); Hematocrit 27.5 % (37-47); Lymphocyte # 1.42 X10^3/ul (0.83-4.51); Lymphocyte % 13.1 % (19-41); Mean Corp Hgb Conc 32.7 g/dL (32-36); Mean Corpuscular Hgb 29.3 pg (27.0-32.0); Mean Corpuscular Volume 89.6 fL (81-99); Mean Platelet Vol. 9.9 fl (6.2-12.0); Monocyte# 1.25 X10^3/uL; Monocyte% 11.5 % (0-10); NRBC Flagged by Analyzer 0 % (0-5); Neutrophil # 7.93 X10^3/uL (2.7-7.7); Neutrophil % 72.8 % (47-70); Platelet Count 312 K/mm3 (150-450); RBC Distribution Width CV 13.8 % (11.6-14.6); RBC Distribution Width SD 44.6 fl (35.1-43.9); Red Blood Count 3.07 M/mm3 (4.2-5.4); White Blood Count 10.9 K/mm3 (4.4-11.0)
[2022-04-12 06:08] LABS: Anion Gap 7 (5-15); BUN 22 mg/dL (7-18); BUN/Creat Ratio 19.1 RATIO (10-20); Chloride 106 mmol/L (98-107); Creatinine, Serum 1.15 mg/dL (0.55-1.02); EST Glomerular Filtration Rate 48 mL/min (>60); Est Glom Filt Rate - Afr Amer 58 mL/min (>60); Estimated Creatinine Clearance 33.13 ml/min; Glucose 88 mg/dL (74-106); Potassium 2.8 mmol/L (3.5-5.1); Sodium Level 142 mmol/L (136-145)
[2022-04-12] MEDS: 0.9% Saline Lock 10 ML Syringe IV ×2 (06:22→14:24)
[2022-04-12] MEDS: Cefazolin 2 GM in 0.9% Normal Saline 100 ML IV ×3 (06:25→20:33)
[2022-04-12] MEDS: Menthol/Lanolin/Calamine/Znox 113 GM Tube 1 APPLIC TOPICAL ×2 (06:27→17:34)
[2022-04-12] MEDS: Senna/Docusate Sodium 1 Tablet PO ×2 (06:28→17:39)
[2022-04-12] MEDS: Famotidine 20 MG Tablet PO (06:28)
[2022-04-12] MEDS: Lidocaine 5% Patch 2 PATCH TOPICAL (06:34)
[2022-04-12] MEDS: Nystatin Powder 15gm Bottle 1 APPLIC TOPICAL ×2 (06:38→17:34)
[2022-04-12] MEDS: Potassium Chloride Oral Tablet 20 MEQ 60 MEQ PO (08:18)
[2022-04-12] MEDS: Potassium Chloride Oral Tablet 20 MEQ PO (08:19)
[2022-04-12] MEDS: Acetaminophen 500 MG Tablet 1000 MG PO (10:57)
[2022-04-12] MEDS: oxyCODONE 5 MG Tablet PO ×2 (10:57→20:37)
[2022-04-12] MEDS: Tuberculin,Purif.prot.deriv. 50 TU/ML Vial 0.1 ML ID (12:13)
--- NOTE | 2022-04-12 15:01 | CON.PCM.ID_ITS ---
Assessment & Plan Assessment/Plan (1) Osteomyelitis of vertebra, lumbar region: (2) Abscess in epidural space of lumbar spine: (3) Discitis of lumbar region: PLAN: Reviewed [facility] records. On cefazolin with stop date 05/31/22 for mssa bacteremia, lumbar osteo/discitis/epidural abscess. No hardware in place in her back. Xray done here. Will follow, thank you HPI Consult Data Date of Consult: 04/12/22 HPI Narrative HPI Narrative: MADHURI ANAYA, is a 82 F who presented from [facility] after admit with mssa bacteremia and lumbar discitis/osteo/epidural abscess requiring OR debridement 04/03/22. Seen by Dr. Saez with ID, discharged to TCU on 8 weeks cefazolin. Feeling ok, back pain mild. No fever, no n/v/d. Full ROS performed and neg except as noted above. [facility] Medical History Debility General weakness Kidney calculi Low back pain UTI (urinary tract infection) Home Medications acetaminophen [Tylenol Ex Str Rapid Release] 1,000 mg PO Q6H PRN PRN 04/02/22 [History Last Taken Unknown] bisacodyl [Dulcolax (bisacodyl)] 10 mg PO DAILY 04/02/22 [History Last Taken Unknown] lidocaine 1.8 patch TRANSDERMAL DAILY 04/02/22 [History Last Taken Unknown] menthol-zinc oxide [Calmoseptine] 1 applic TOPICAL BID 04/02/22 [History Last Taken Unknown] oxycodone [OxyIR] 5 mg PO Q4H PRN 04/02/22 [History Last Taken Unknown] polyethylene glycol 3350 [Miralax] 17 g PO DAILY 04/02/22 [History Last Taken Unknown] senna-docusate sodium [Senokap-DSS] 1 cap PO BID 04/02/22 [History Last Taken Unknown] tramadol [Ultram] 50 mg PO Q6H PRN 04/02/22 [History Last Taken Unknown] cefazolin 2 g IV Q8 04/11/22 [History Last Taken Unknown] famotidine 20 mg PO DAILY 04/11/22 [History Last Taken Unknown] Allergy/AdvReac Type Severity Reaction Status Date / Time bee venom protein (honey bee) AdvReac Other Verified 04/02/22 21:19 Social History household members: none Smoking Status: Never smoker alcohol intake: never substance use type: does not use Physical Exam Const alert, oriented x3 and no apparent distress General Appearance: cooperative Exam Limitations: no limitations HEENT normocephalic and head/scalp atraumatic Eyes PERRL and EOMs intact bilaterally Neck supple and No nodes Resp normal air movement and clear to auscultation bilaterally Cardio regular rate and regular rhythm GI soft to palpation, non-tender and non-distended Extremity no clubbing, cyanosis or edema Skin no rashes or lesions noted Neuro CN's II-XII intact bilaterally Lab / Micro Data Result Diagrams: 04/12/22 05:12 04/12/22 05:12 Labs: Laboratory Results - last 24 hr 04/12/22 05:12: WBC 10.9, RBC 3.07 L, Hgb 9.0 L, Hct 27.5 L, MCV 89.6, MCH 29.3, MCHC 32.7, RDW Std Deviation 44.6 H, RDW Coeff of [place] 13.8, Plt Count 312, MPV 9.9, Immature Gran % (Auto) 1.500 H, Neut % (Auto) 72.8 H, Lymph % (Auto) 13.1 L , [place] % (Auto) 11.5 H, Eos % (Auto) 0.5, Baso % (Auto) 0.6, Absolute Neuts (auto) 7.9 H, Absolute Lymphs (auto) 1.42, Nucleated RBC % 0 04/12/22 05:12: Sodium 142, Potassium 2.8 L, Chloride 106, Carbon Dioxide 29.0, Anion Gap 7, BUN 22 H, Creatinine 1.15 H, Estim Creat Clear Calc 33.13, Est GFR (MDRD) Af Amer 58 L, Est GFR (MDRD) Non-Af 48 L, BUN/Creatinine Ratio 19.1, Glucose 88, Calcium 8.0 L Micro: Microbiology 04/11/22 19:00 Nasal Secretion SARS-CoV-2 Antigen (Rapid) - Final Radiology Impression KUB X-Ray 04/11/22 18:25 IMPRESSION: 1. No abdominal organomegaly. 2. Unremarkable intestinal gas pattern--no intestinal obstruction or ileus. 3. No abnormal intra-abdominal calcifications or collections of air. Normal pelvic phleboliths are present. 4. Mild demineralization. No fractures or dislocations. Electronically Signed: Rahul Silvestre MD at 19:57 EDT ,
[2022-04-12 16:00] VITALS: BP 116/82; PULSE 74; RESP 16; TEMP 36.5; O2SAT 90
--- NOTE | 2022-04-12 16:04 | PHA.CONS1_ITS ---
Progress Note - Pharmacy Subjective: TCU ADMISSION Objective: Allergies bee venom protein (honey bee) Adverse Reaction (Verified 04/02/22 21:19) Other Current Medications Generic Name Dose Route Start Last Admin Trade Name Freq PRN Reason Stop Dose Admin Acetaminophen 1,000 mg 04/11/22 20:22 04/12/22 10:57 Acetaminophen 500 Mg Tablet PO 1,000 mg Q6H PRN PRN Administration Pain Score 1-3 Bisacodyl 10 mg 04/11/22 20:22 Bisacodyl 5 Mg Tablet PO DAILY PRN Constipation Calamine/Phenol 1 applic 04/11/22 18:00 04/12/22 06:27 Menthol/Lanolin/Calamine/Znox 113 Gm Tube TOPICAL 1 applic BID SANGEETA Administration Protocol Famotidine 20 mg 04/12/22 06:00 04/12/22 06:28 Famotidine 20 Mg Tablet PO 20 mg DAILY SANGEETA Administration Cefazolin Sodium 2 gm/ Sodium 110 mls @ 150 mls/hr 04/11/22 22:00 04/12/22 15:33 Chloride IV Infused Q8 SANGEETA Infusion Sodium Chloride 250 mls @ 15 mls/hr 04/12/22 02:22 IV .[id number] PRN Saline Flush Sodium Chloride 250 mls @ 15 mls/hr 04/12/22 02:22 IV .[id number] PRN Additional IVPB Infusion Lidocaine 2 patch 04/12/22 06:00 04/12/22 06:34 Lidocaine 5% Patch TOPICAL 1 patch DAILY SANGEETA Administration Protocol Magnesium Hydroxide 30 ml 04/11/22 20:22 Magnesium Hydroxide 30 Ml Udc PO DAILY PRN Constipation Nutritional Formula (Lactose Free) 120 ml 04/12/22 07:45 04/12/22 12:14 Ensure Enlive 120 Ml Liquid PO 120 ml TIDCM SANGEETA Administration Nystatin 1 applic 04/12/22 06:00 04/12/22 06:38 Nystatin Powder 15gm Bottle TOPICAL 1 applic BID SANGEETA Administration Protocol Oxycodone HCl 5 mg 04/11/22 20:25 04/12/22 10:57 Oxycodone 5 Mg Tablet PO 04/14/22 17:48 5 mg Q4H PRN Administration Pain Score 6-10 Polysaccharide Iron Complex 150 mg 04/13/22 06:00 Iron Polysaccharide Complex 150 Mg Capsule PO DAILY [facility] Potassium Chloride 20 meq 04/12/22 08:00 04/12/22 08:19 Potassium Chloride Oral Tablet 20 Meq PO 20 meq DAILYCM SANGEETA Administration Senna/Docusate Sodium 1 tablet 04/11/22 20:30 04/12/22 06:28 Senna/Docusate Sodium 1 Tablet PO 1 tablet BID SANGEETA Administration Sodium Chloride 10 - 40 ml 04/11/22 18:34 04/12/22 14:24 0.9% Saline Lock 10 Ml Syringe IV 30 ml UD PRN Administration Multilumen/Merino Flush Sodium Chloride 10 - 40 ml 04/12/22 07:49 0.9% Saline Lock 10 Ml Syringe IV UD PRN Multilumen/Merino Flush Sodium Chloride 10 - 40 ml 04/12/22 07:49 0.9 % Nacl (Sterile) Posiflush 10 Ml IV UD PRN Port access or dressing change Tramadol HCl 50 mg 04/11/22 20:22 Tramadol 50 Mg Tablet PO Q6H PRN PRN Pain Score 4-5 Tuberculin PPD 0.1 ml 04/19/22 10:00 Tuberculin,Purif.Prot.Deriv. 50 Tu/Ml Vial ID 04/19/22 10:01 X1 ONE Problem List (Last Reviewed 04/12/22 @ 15:[address] Gavin Mcdonnell MD) Kidney stone (Acute) Paraspinal abscess (Acute) Abscess in epidural space of lumbar spine (Acute) Lumbar spinal stenosis (Acute) Osteomyelitis of vertebra, lumbar region (Acute) Discitis of lumbar region (Acute) Debility (Acute) Low back pain (Acute) Vital Signs Temp Pulse Resp BP Pulse Ox 97.0 F L 68 16 157/75 H 93 04/11/22 17:41 04/11/22 21:38 04/11/22 21:38 04/11/22 17:41 04/11/22 21:38 Oxygen Delivery Method Room Air Weight: 92.079 kg Body Mass Index (BMI) 34.8 Sodium 142 mmol/L (136-145) 04/12/22 05:12 Potassium 2.8 mmol/L (3.5-5.1) L 04/12/22 05:12 Chloride 106 mmol/L (98-107) 04/12/22 05:12 Carbon Dioxide 29.0 mmol/L (21.0-32.0) 04/12/22 05:12 Anion Gap 7 (5-15) 04/12/22 05:12 BUN 22 mg/dL (7-18) H 04/12/22 05:12 Creatinine 1.15 mg/dL (0.55-1.02) H 04/12/22 05:12 Est GFR (MDRD) Af Amer 58 mL/min (>60) L 04/12/22 05:12 Est GFR (MDRD) Non-Af 48 mL/min (>60) L 04/12/22 05:12 BUN/Creatinine Ratio 19.1 RATIO (10-20) 04/12/22 05:12 Glucose 88 mg/dL (74-106) 04/12/22 05:12 Assessment/Plan: 1. Pain: Lidocaine Patch 2 patch topically daily, Tylenol 1000mg PO Q6h PRN pain 1-3, Tramadol 50mg PO Q6h PRN pain 4-5, Oxycodone 5mg PO Q4h PRN Pain 6-10. Please continue to monitor for increased/decreased S/S pain, PRN medication usage, CrCl (33 mL/min), oversedation with narcotic use, local site irritation with lidocaine patch use. - The patient has required 2 doses of Tylenol, no doses of tramadol, and 1 dose of oxycodone since admission on 04/11. The patient is reporting back pain 10/10 pre-medication and 7/10 post-medication. Please continue to monitor PRN use. If PRN medication use becomes regular, can consider changing medication from PRN to scheduled. 2. Lumbar osteomyelitis/ epidural abscess post debridement: Cefazolin 2g IV Q8h. Please continue to monitor CrCl (33 mL/hr), resolution of infection, culture results (if new cultures taken). ID service is following patient while admitted who will continue to monitor and determine stop date for antibiotic per H/P. 3. GERD:Pepcid 20mg PO daily. Please continue to monitor CrCl, S/S GERD exacerbation. May also encourage non pharmacologic therapies to help minimize GERD flare-ups. 4. Skin Integrity: Calmoseptine topically BID, Nystatin powder topically BID. Please continue to monitor for new sores/redness throughout admission. 5. Bowel: Senna/Docusate 1 tab PO BID, Milk of Magnesia 30mL PO daily PRN, Dulcolax 10mg PO daily PRN. Please continue to monitor for increased/decreased constipation and/or diarrhea. The patient has no had 6. Anemia: Xarelto being held. Ferrex 150mg PO daily. Please continue to monitor H/H (Hgb 9/ Hct 27.5), S/S bleeding, GI upset with iron use. 7. Hypokalemia: KCl 20mEq PO daily. Please continue to monitor K level (last 2.8 on 04/12), GI upset, N/V. Psychotropic Medications: None Medication Irregularities At time of medication list review, no irregularities were identified. Date of Note:: 04/12/22
--- NOTE | 2022-04-12 18:02 | NURSING ---
Pt and family notified of staff member and another pt testing positive for covid.
[2022-04-13] MEDS: Cefazolin 2 GM in 0.9% Normal Saline 100 ML IV ×3 (05:30→21:54)
[2022-04-13] MEDS: Iron Polysaccharide Complex 150 MG CAPSULE PO (05:31)
[2022-04-13] MEDS: Menthol/Lanolin/Calamine/Znox 113 GM Tube 1 APPLIC TOPICAL ×2 (05:31→17:32)
[2022-04-13] MEDS: Nystatin Powder 15gm Bottle 1 APPLIC TOPICAL ×2 (05:31→17:32)
[2022-04-13] MEDS: Lidocaine 5% Patch 2 PATCH TOPICAL (05:32)
[2022-04-13] MEDS: Senna/Docusate Sodium 1 Tablet PO ×2 (05:33→17:31)
[2022-04-13] MEDS: Famotidine 20 MG Tablet PO (05:33)
[2022-04-13 05:38] VITALS: BP 128/62; PULSE 71; RESP 16; TEMP 36.6; O2SAT 96
[2022-04-13 07:40] LABS: Anion Gap 6 (5-15); BUN 24 mg/dL (7-18); BUN/Creat Ratio 17.4 RATIO (10-20); Calcium,Total 8.4 mg/dL (8.5-10.1); Chloride 109 mmol/L (98-107); Creatinine, Serum 1.38 mg/dL (0.55-1.02); EST Glomerular Filtration Rate 39 mL/min (>60); Est Glom Filt Rate - Afr Amer 47 mL/min (>60); Estimated Creatinine Clearance 27.61 ml/min; Glucose 95 mg/dL (74-106); Potassium 3.5 mmol/L (3.5-5.1); Sodium Level 143 mmol/L (136-145)
[2022-04-13] MEDS: oxyCODONE 5 MG Tablet PO ×4 (08:00→21:42)
[2022-04-13] MEDS: Potassium Chloride Oral Tablet 20 MEQ PO (08:01)
[2022-04-13] MEDS: Acetaminophen 500 MG Tablet 1000 MG PO (12:04)
[2022-04-13] MEDS: 0.9% Saline Lock 10 ML Syringe IV ×3 (13:23→23:03)
[2022-04-13 21:00] VITALS: PULSE 63; RESP 14; O2SAT 95
[2022-04-14] MEDS: Cefazolin 2 GM in 0.9% Normal Saline 100 ML IV ×3 (05:15→22:39)
[2022-04-14] MEDS: 0.9% Saline Lock 10 ML Syringe IV ×4 (05:17→22:40)
[2022-04-14] MEDS: oxyCODONE 5 MG Tablet PO ×2 (05:21→17:39)
[2022-04-14] MEDS: Lidocaine 5% Patch 2 PATCH TOPICAL (05:21)
[2022-04-14] MEDS: Famotidine 20 MG Tablet PO (05:22)
[2022-04-14] MEDS: Senna/Docusate Sodium 1 Tablet PO ×2 (05:22→17:40)
[2022-04-14] MEDS: Iron Polysaccharide Complex 150 MG CAPSULE PO (05:22)
[2022-04-14] MEDS: Nystatin Powder 15gm Bottle 1 APPLIC TOPICAL ×2 (05:22→17:42)
[2022-04-14] MEDS: Menthol/Lanolin/Calamine/Znox 113 GM Tube 1 APPLIC TOPICAL ×2 (05:23→17:41)
[2022-04-14] MEDS: Potassium Chloride Oral Tablet 20 MEQ PO (08:10)
[2022-04-14 10:00] VITALS: PULSE 71; RESP 16; O2SAT 93
[2022-04-14 15:31] VITALS: BP 131/75; PULSE 74; RESP 18; TEMP 37.6; O2SAT 92
[2022-04-14] MEDS: Acetaminophen 500 MG Tablet 1000 MG PO (17:38)
--- NOTE | 2022-04-14 18:11 | NURSING ---
Today and yesterday pt has been refusing to sit up in bed, she will not let staff elevated HOB d/t c/o back pain and RT/LT side pain. Pt reported that therapy had walked her to the room door on Friday and felt that it may have been too much too soon. 1:1 much encouragement. family at bedside and reported that pt was able to sit up in chair at previous hospital. Much explanation needed to educate pt on the importance of getting up OOB couple times a day. Turned pt every 2 hrs in bed and pt able to grab siderails w/out grimacing or any change in behavior. Will leave message for physical therapy.
[2022-04-14 19:30] VITALS: TEMP 37.2
--- NOTE | 2022-04-14 20:08 | NURSING ---
Pt. denial management representative (Linh) calls unit for update, update provided, requests for nurse to notify her when appointment with is established so can attempt to be present with patient at time of appointment. Professor Of Marketing Linh states resides in [place] and unsure if patient will be able to return home alone. Professor Of Marketing encouraged to discuss concern with social services, will leave SW confidential voicemail regarding rep concern. Expresses thanks for information, no further concerns voiced at this time.
--- NOTE | 2022-04-14 21:00 | NURSING ---
Dr. Escalera contacted via telephone regarding temp 99.7 as reported by festus RN recheck 99.0, festus report of refusal to sit up in bed for meals c/o right and left side pain, poor appetite and fluid intake, refusal to get OOB or elevate HOB despite PRN pain medication, request for PRN Oxy to be re-ordered due to stop-date discontinuation, new orders recieved: Continue Oxy as previously ordered, Baclofen TID PRN muscle spasm, CBC with Diff, CMP, repeat covid test, start NS 75cc/hr, orders repeated back.
--- NOTE | 2022-04-14 21:00 | NURSING ---
contacted via telephone regarding recent temp 99.7, current oral temp 99.0, discussed poor fluid and oral intake, refusing to sit up or get OOB despite encouragement during meal, c/o pain to right and left side with sitting up, incision site without s/s infection, request for Oxy to be restarted due to discontinued due to stop date ordered upon admit, new orders received: Restart Oxy as previously ordered, Baclofen 10mg TID PRN spasm, CBC with diff, BMP, repeat Covid test, start IV NS at 75cc/hr, orders repeated back.
[2022-04-14 22:01] LABS: Absolute Lymphocyte Count 1.85 X10^3/uL (0.83-4.51); Absolute Neutrophil Count 7.3 X10^3/uL (2.0-7.7); Basophil# 0.09 X10^3/uL; Basophil% 0.8 % (0-1); Eosinophil# 0.19 X10^3/uL; Eosinophils% 1.8 % (0-5); Hematocrit 30.6 % (37-47); Hemoglobin 9.6 g/dL (12.0-15.0); Lymphocyte # 1.85 X10^3/ul (0.83-4.51); Lymphocyte % 17.5 % (19-41); Mean Corp Hgb Conc 31.4 g/dL (32-36); Mean Corpuscular Volume 92.4 fL (81-99); Monocyte# 0.97 X10^3/uL; Monocyte% 9.2 % (0-10); NRBC Flagged by Analyzer 0 % (0-5); Neutrophil # 7.33 X10^3/uL (2.7-7.7); Neutrophil % 69.2 % (47-70); Platelet Count 276 K/mm3 (150-450); RBC Distribution Width CV 14.3 % (11.6-14.6); RBC Distribution Width SD 47.8 fl (35.1-43.9); Red Blood Count 3.31 M/mm3 (4.2-5.4); White Blood Count 10.6 K/mm3 (4.4-11.0)
[2022-04-14 22:31] LABS: Anion Gap 6 (5-15); BUN 20 mg/dL (7-18); BUN/Creat Ratio 14.1 RATIO (10-20); Calcium,Total 8.2 mg/dL (8.5-10.1); Chloride 107 mmol/L (98-107); Creatinine, Serum 1.42 mg/dL (0.55-1.02); EST Glomerular Filtration Rate 38 mL/min (>60); Est Glom Filt Rate - Afr Amer 46 mL/min (>60); Estimated Creatinine Clearance 26.83 ml/min; Glucose 105 mg/dL (74-106); Potassium 3.7 mmol/L (3.5-5.1); Sodium Level 141 mmol/L (136-145)
[2022-04-14] MEDS: 0.9% Normal Saline 1,000 ML 75 ML IV (22:39)
[2022-04-14] MEDS: Baclofen 10 MG Tablet PO (22:45)
[2022-04-15 02:52] LABS: AST(SGOT) 17 U/L (15-37); Alanine Aminotransfer ALT/SGPT < 6 U/L (13-56); Alkaline Phosphatase 116 U/L (45-117); Bilirubin, Direct 0.18 mg/dL (0.00-0.30); Globulin 3.6 g/dL (2.2-4.2); Protein, Total 5.6 g/dL (6.4-8.2)
[2022-04-15] MEDS: Cefazolin 2 GM in 0.9% Normal Saline 100 ML IV ×3 (05:01→22:56)
[2022-04-15] MEDS: oxyCODONE 5 MG Tablet PO ×3 (05:06→14:26)
[2022-04-15] MEDS: Lidocaine 5% Patch 2 PATCH TOPICAL (05:06)
[2022-04-15] MEDS: Acetaminophen 500 MG Tablet 1000 MG PO (05:06)
[2022-04-15] MEDS: Famotidine 20 MG Tablet PO (05:06)
[2022-04-15] MEDS: Iron Polysaccharide Complex 150 MG CAPSULE PO (05:06)
[2022-04-15] MEDS: Senna/Docusate Sodium 1 Tablet PO (05:06)
[2022-04-15] MEDS: Menthol/Lanolin/Calamine/Znox 113 GM Tube 1 APPLIC TOPICAL ×2 (05:13→17:44)
[2022-04-15] MEDS: Nystatin Powder 15gm Bottle 1 APPLIC TOPICAL ×2 (05:14→17:44)
[2022-04-15] MEDS: Potassium Chloride Oral Tablet 20 MEQ PO (08:21)
--- NOTE | 2022-04-15 11:36 | NURSING ---
Resident educated on the COVID 19 Vaccine and does not want to receive it.
--- NOTE | 2022-04-15 14:15 | PT ---
Spoke with pt's nephew Adalberto. Updated him on pt's level of function. Pt did participate with therapy this afternoon and was min A for bed mobility with log rolling technique and was CGA for sit to stands and transfers with FWW. Pt was able to ambulate from bed<>recliner with FWW with CGA. Pt instructed to NOT use bedpan due to having recent back surgery. Pt agreeable to use BSC. Instructed staff on pt using BSC or bathroom for toileting. Pt's nephew happy with update.
[2022-04-15] MEDS: 0.9% Normal Saline 1,000 ML 75 ML IV (14:18)
[2022-04-15] MEDS: 0.9% Saline Lock 10 ML Syringe IV (14:24)
[2022-04-15 14:46] VITALS: BP 169/81; PULSE 78; RESP 14; TEMP 36.4; O2SAT 94
--- NOTE | 2022-04-15 19:48 | NURSING ---
Dr. Vera Saez office called regarding f/u appt. Adv them that Dr. Mcdonnell was consulted to monitor pt's antibiotic. Office stated they would like labs sent to office fax number [phone]. Lead Java Software Engineer will verify if Dr. Saez would still want this labs and if f/u with her will be necessary since she is being seen by infectious disease here. Stated they will call back tomorrow with update.
[2022-04-15 22:00] VITALS: PULSE 85; RESP 16; O2SAT 92
[2022-04-16] MEDS: Lidocaine 5% Patch 2 PATCH TOPICAL (05:20)
[2022-04-16] MEDS: Cefazolin 2 GM in 0.9% Normal Saline 100 ML IV ×3 (05:20→21:50)
--- NOTE | 2022-04-16 05:31 | NURSING ---
Patient did not want to take PO medications this AM. Will attempt to administer later this AM.
[2022-04-16] MEDS: 0.9% Saline Lock 10 ML Syringe IV ×2 (06:39→16:12)
[2022-04-16] MEDS: 0.9% Normal Saline 1,000 ML 75 ML IV ×2 (06:42→23:13)
[2022-04-16] MEDS: Famotidine 20 MG Tablet PO (06:47)
[2022-04-16] MEDS: Nystatin Powder 15gm Bottle 1 APPLIC TOPICAL ×2 (06:47→17:41)
[2022-04-16] MEDS: Menthol/Lanolin/Calamine/Znox 113 GM Tube 1 APPLIC TOPICAL ×2 (06:47→17:41)
[2022-04-16] MEDS: Iron Polysaccharide Complex 150 MG CAPSULE PO (06:47)
[2022-04-16] MEDS: Senna/Docusate Sodium 1 Tablet PO ×2 (06:48→21:54)
--- NOTE | 2022-04-16 07:35 | NURSING ---
AM medications administered, and shortly after, patient had a large amount of emesis. States she hasn't vomited like that in years. No other issues noted. Continues on IV fluids due to lack of appetite. IV is not hooked up at this time. Will continue to monitor.
[2022-04-16 10:00] VITALS: PULSE 97; RESP 18; O2SAT 98
[2022-04-16] MEDS: Potassium Chloride Oral Tablet 20 MEQ PO (10:51)
--- NOTE | 2022-04-16 11:03 | NURSING ---
Infection Disease from [facility] called this nurse and stated that since she is being followed by ID physician here they will defer care to him and no longer be apart of her care team.
--- NOTE | 2022-04-16 12:26 | NURSING ---
Left message for Dr. Mccain's office to schedule f/u appt.
[2022-04-16 13:59] VITALS: BP 133/55; PULSE 67; RESP 20; TEMP 36.5; O2SAT 92
[2022-04-16] MEDS: oxyCODONE 5 MG Tablet PO (15:58)
[2022-04-16] MEDS: Bisacodyl 5 MG Tablet 10 MG PO (16:11)
--- NOTE | 2022-04-16 17:57 | NURSING ---
pt vomited small to moderate amount of liquid. Assisted with changing gown, cleaned and assisted to chair. Call light within reach, emesis bag at bedside table. Will continue to monitor.
--- NOTE | 2022-04-16 18:59 | RAD_ITS ---
EXAM: XR ABDOMEN, 2 VIEWS CLINICAL INDICATION: Nausea and vomiting. TECHNIQUE: Frontal view of the abdomen/pelvis with upright view of the abdomen. This report was created using gifted2you report generation technology. COMPARISON: April 11, 2022. FINDINGS: LOWER THORAX: No acute pathology. Cardiomegaly. INTRAPERITONEAL SPACE: No free air. GASTROINTESTINAL TRACT: Unremarkable. Non-obstructive. No bowel or stomach distention. Mild scattered bowel gas. ORGANS: Unremarkable as visualized. No organomegaly. No abnormal calcifications. BONES/JOINTS: No acute pathology. SOFT TISSUES: No acute pathology. RAD/Abdomen Single View IMPRESSION: Unremarkable abdominal series. Nonspecific bowel gas pattern. Postoperative change. Electronically Signed: Divina Colin MD at 20:19 EDT ,
--- NOTE | 2022-04-16 18:59 | NURSING ---
Notified Dr. Escalera of pt having N/V. Received order for KUB and soap suds enema. Order repeated back.
[2022-04-17] MEDS: 0.9% Normal Saline 1,000 ML 75 ML IV ×2 (05:11→17:04)
[2022-04-17] MEDS: Cefazolin 2 GM in 0.9% Normal Saline 100 ML IV ×3 (05:11→21:14)
[2022-04-17] MEDS: Iron Polysaccharide Complex 150 MG CAPSULE PO (05:14)
[2022-04-17] MEDS: Menthol/Lanolin/Calamine/Znox 113 GM Tube 1 APPLIC TOPICAL ×2 (05:14→17:07)
[2022-04-17] MEDS: Famotidine 20 MG Tablet PO (05:14)
[2022-04-17] MEDS: Lidocaine 5% Patch 2 PATCH TOPICAL (05:26)
[2022-04-17] MEDS: Nystatin Powder 15gm Bottle 1 APPLIC TOPICAL ×2 (05:26→17:07)
[2022-04-17] MEDS: Senna/Docusate Sodium 1 Tablet PO ×2 (05:27→17:07)
[2022-04-17] MEDS: oxyCODONE 5 MG Tablet PO ×3 (08:30→19:39)
[2022-04-17] MEDS: Potassium Chloride Oral Tablet 20 MEQ PO (08:32)
--- NOTE | 2022-04-17 13:48 | PT ---
Spoke with pt's nephew Adalberto about pt's lack of appetite. Pt's nephew stated pt likes fresh fruit, strawberry jello, applesauce and [employer] chili. Will attempt to offer these foods to patient to help increase overall intake. Adalberto stated he would bring in a list of pt's favorite foods in on Friday and encourage pt to increase overall intake.
[2022-04-17 15:09] VITALS: BP 130/78; PULSE 80; RESP 18; TEMP 36.7; O2SAT 91
--- NOTE | 2022-04-17 15:10 | NURSING ---
Addendum entered by Malathi Justice 04/17/22 15:52: Appt. Made for 04/19/22 @0745. [facility] will P/U at 0630. Original Note: Called Dr. Paula Deluca orthopedic surgeon to schedule post op appt.. Was sent to 's sales secretary left voicemail awaiting return call.
[2022-04-17] MEDS: Saliva Substitute 237 ML BOTTLE 15 ML MUCOUS MEM (17:04)
[2022-04-17] MEDS: 0.9% Saline Lock 10 ML Syringe IV (17:04)
[2022-04-17 20:00] VITALS: PULSE 75; RESP 16; O2SAT 96
[2022-04-18] MEDS: 0.9% Saline Lock 10 ML Syringe IV ×2 (03:01→20:26)
[2022-04-18] MEDS: Bisacodyl 5 MG Tablet 10 MG PO (03:08)
[2022-04-18] MEDS: Baclofen 10 MG Tablet PO (03:08)
[2022-04-18] MEDS: traMADol 50 MG Tablet PO (04:06)
[2022-04-18] MEDS: Lidocaine 5% Patch 2 PATCH TOPICAL (04:07)
[2022-04-18] MEDS: Menthol/Lanolin/Calamine/Znox 113 GM Tube 1 APPLIC TOPICAL ×2 (04:08→18:25)
[2022-04-18] MEDS: Nystatin Powder 15gm Bottle 1 APPLIC TOPICAL ×2 (04:08→18:28)
[2022-04-18] MEDS: Iron Polysaccharide Complex 150 MG CAPSULE PO (05:08)
[2022-04-18] MEDS: Cefazolin 2 GM in 0.9% Normal Saline 100 ML IV ×3 (05:09→20:22)
[2022-04-18] MEDS: 0.9% Normal Saline 1,000 ML 75 ML IV ×2 (05:11→20:18)
--- NOTE | 2022-04-18 05:17 | NURSING ---
Addendum entered by Cathy Paul 04/18/22 05:23: PRN Bisacodyl administered per order this AM, last recorded BM 04/18, no results at this time, written communication left for Dr. Escalera review this AM notifying of last BM Original Note: Accepts Ferrex per order, declines other 0600 oral meds stating too many will make me nauseated, educated on purpose of medications as ordered, declines. No distress observed or reported. IV Cefazolin continues as ordered via central line. No adverse effects observed or reported.
[2022-04-18] MEDS: Potassium Chloride Oral Tablet 20 MEQ PO (08:41)
[2022-04-18] MEDS: oxyCODONE 5 MG Tablet PO (09:10)
[2022-04-18 10:00] VITALS: PULSE 100; RESP 18; O2SAT 98
--- NOTE | 2022-04-18 10:58 | CASEMGMT ---
Addendum entered by Lesley Mata 04/18/22 11:07: Pt reported to depressive symptoms, low appetite, anxious with the future. Agreeable to start med. Communication left for Dr. Escalera Original Note: Social Work BIMS and PHQ-9 completed for MDS assessment. JOSE LeoneW
--- NOTE | 2022-04-18 11:43 | NURSING ---
Mechanical Estimator Note: Interview and Section F of MDS complete.
--- NOTE | 2022-04-18 12:58 | PT ---
Assisted pt with repositioning in bed. pt refusing to get out of bed this date. Pt stated she had gotten into bed after lunch and did not want to get out of bed. Educated pt on importance of getting out of bed and strongly encouraged pt to attempt sitting EOB and transfers. Pt again refused. Asked pt about what her thoughts were on going home. Pt stated she wished she was going home tomorrow. Pt will need assistance if returning home as she is unable to care for herself at this time. pt in agreement. Pt stated she wants to try and find someone to maybe stay with her. Pt repeatedly stated she feels she will be better at home. Reminded pt she has a POC meeting tomorrow and we can discuss all of this with her family. Pt continues to be anxious about her ortho appt tomorrow morning. Offered reassurance to pt. Reminded pt of the importance of therapy in order to reach her goal of returning home. Pt in agreement but then again refused to get out of bed at this time.
[2022-04-18 13:45] VITALS: BP 138/72; PULSE 89; RESP 14; TEMP 36.3; O2SAT 92
[2022-04-18] MEDS: Senna/Docusate Sodium 1 Tablet 2 TABLET PO (18:25)
--- NOTE | 2022-04-18 18:34 | NURSING ---
pt trying to sip up on edge of bed, needed to use BR. pt able to sit up in bed on own. pt ambulated to BR with walker and stanby assist to and from BR. denied pain except when she went to get back into bed she needed assist with legs and then she was able to position self. pt did refuse supper, did drink her ensure.
[2022-04-18] MEDS: Mirtazapine 15 MG Tablet 7.5 MG PO (20:32)
[2022-04-19] MEDS: Senna/Docusate Sodium 1 Tablet 2 TABLET PO ×2 (05:03→17:25)
[2022-04-19] MEDS: Cefazolin 2 GM in 0.9% Normal Saline 100 ML IV ×3 (05:17→22:49)
[2022-04-19] MEDS: Lidocaine 5% Patch 2 PATCH TOPICAL (05:19)
[2022-04-19] MEDS: Iron Polysaccharide Complex 150 MG CAPSULE PO (05:20)
[2022-04-19] MEDS: Famotidine 20 MG Tablet PO (05:20)
[2022-04-19] MEDS: Menthol/Lanolin/Calamine/Znox 113 GM Tube 1 APPLIC TOPICAL ×2 (05:28→17:24)
[2022-04-19] MEDS: Nystatin Powder 15gm Bottle 1 APPLIC TOPICAL ×2 (05:28→17:25)
[2022-04-19 05:47] LABS: Absolute Neutrophil Count 6.8 X10^3/uL (2.0-7.7); Basophil% 1.1 % (0-1); Eosinophil# 0.24 X10^3/uL; Eosinophils% 2.6 % (0-5); Hemoglobin 8.3 g/dL (12.0-15.0); Lymphocyte % 11.9 % (19-41); Mean Corp Hgb Conc 31.9 g/dL (32-36); Mean Corpuscular Hgb 29.1 pg (27.0-32.0); Mean Corpuscular Volume 91.2 fL (81-99); Mean Platelet Vol. 10.8 fl (6.2-12.0); Monocyte# 0.96 X10^3/uL; Monocyte% 10.4 % (0-10); NRBC Flagged by Analyzer 0 % (0-5); Neutrophil # 6.79 X10^3/uL (2.7-7.7); Neutrophil % 73.4 % (47-70); Platelet Count 232 K/mm3 (150-450); RBC Distribution Width CV 15.3 % (11.6-14.6); RBC Distribution Width SD 49.9 fl (35.1-43.9); Red Blood Count 2.85 M/mm3 (4.2-5.4); White Blood Count 9.3 K/mm3 (4.4-11.0)
[2022-04-19 06:31] LABS: Anion Gap 7 (5-15); BUN 13 mg/dL (7-18); BUN/Creat Ratio 10.8 RATIO (10-20); Calcium,Total 7.8 mg/dL (8.5-10.1); Chloride 112 mmol/L (98-107); EST Glomerular Filtration Rate 46 mL/min (>60); Est Glom Filt Rate - Afr Amer 55 mL/min (>60); Estimated Creatinine Clearance 31.75 ml/min; Glucose 95 mg/dL (74-106); Potassium 2.7 mmol/L (3.5-5.1); Sodium Level 145 mmol/L (136-145)
[2022-04-19] MEDS: Potassium Chloride Oral Tablet 20 MEQ PO ×2 (07:01→08:04)
--- NOTE | 2022-04-19 07:12 | NURSING ---
Patient had critical potassium value of 2.7. [facility] [place] [facility]. Paged both Dr. Hatfield and Dr. Escalera for advisement. No response as of yet. KCL 20mEQ po administered as ordered on JAN. Supervisors, Kendra and Rashmi, were contacted. They both feel that since patient is asymptomatic, and potassium has been administered, then it would probably be ok to send her.
--- NOTE | 2022-04-19 07:35 | NURSING ---
pt left floor by cot with [facility] for appt.
--- NOTE | 2022-04-19 08:05 | NURSING ---
Talked to Dr. Hatfield at approximately 7:15am. New orders given to give patient an extra dose of Potassium 20mEq x 1, send her to appt and then recheck potassium when she returns from appt. Patient, family and transport updated. Potassium 20mEQ administered. Assisted patient onto cot for appt.
--- NOTE | 2022-04-19 10:52 | NURSING ---
pt returned to unit.
[2022-04-19] MEDS: oxyCODONE 5 MG Tablet PO (10:57)
[2022-04-19] MEDS: Tuberculin,Purif.prot.deriv. 50 TU/ML Vial 0.1 ML ID (10:58)
--- NOTE | 2022-04-19 11:43 | NURSING ---
pt returned from appt. Per Dr orders: Evaluate and treat, progress as tolerated, gait training, LE strengthening, hamstring stretching and myofascial release. Protocol requested: Aerobic exercise program, Progressive ambulation, Post-injury/Post-surgical rehab, Thoracic strengthening, Lumbar strengthening/stretching, Dynamic stabilization low back, Core stabilization/Abdominal strengthening, Postural training and Body mechanics. Modality requested: tens unit and aquatic therapy. Therapy made aware.
[2022-04-19 13:45] LABS: Anion Gap 9 (5-15); BUN 12 mg/dL (7-18); BUN/Creat Ratio 9.5 RATIO (10-20); Calcium,Total 8.4 mg/dL (8.5-10.1); Chloride 110 mmol/L (98-107); Creatinine, Serum 1.26 mg/dL (0.55-1.02); EST Glomerular Filtration Rate 43 mL/min (>60); Est Glom Filt Rate - Afr Amer 52 mL/min (>60); Estimated Creatinine Clearance 30.24 ml/min; Glucose 99 mg/dL (74-106); Potassium 3.1 mmol/L (3.5-5.1); Sodium Level 143 mmol/L (136-145)
[2022-04-19 14:12] VITALS: BP 139/77; PULSE 96; RESP 18; TEMP 36.6; O2SAT 93
--- NOTE | 2022-04-19 15:10 | CASEMGMT ---
Social Work IDT met with patient and nephew for care plan meeting. Discussed patient's progress in PT/OT and nursing. Pt has IV ATB until 05/31. Encouraged pt to work with other therapists and staff with toileting, therapy, ADLs, and not just main STORE COORDINATOR. Encouraged to stay motivated and work hard to return home. IDT and pt/nephew agree pt will do better once she returns to her own environment. The goal is for pt to DC home at the end of the IV ATB doses. All in agreement. SW to continue to follow. Lesley Mata ,[employer] SHELL GATHERER HOIST WORKER
[2022-04-19] MEDS: 0.9% Normal Saline 1,000 ML 75 ML IV (17:24)
[2022-04-19] MEDS: traMADol 50 MG Tablet PO (18:35)
[2022-04-19] MEDS: Acetaminophen 500 MG Tablet 1000 MG PO (18:35)
[2022-04-19 22:00] VITALS: PULSE 75; RESP 16; O2SAT 95
[2022-04-19] MEDS: Mirtazapine 15 MG Tablet 7.5 MG PO (22:51)
[2022-04-20] MEDS: 0.9% Saline Lock 10 ML Syringe IV ×2 (03:56→13:30)
[2022-04-20] MEDS: 0.9% Normal Saline 1,000 ML 75 ML IV ×2 (05:14→19:57)
[2022-04-20] MEDS: Cefazolin 2 GM in 0.9% Normal Saline 100 ML IV ×3 (05:14→23:03)
[2022-04-20] MEDS: Menthol/Lanolin/Calamine/Znox 113 GM Tube 1 APPLIC TOPICAL ×2 (05:15→17:12)
[2022-04-20] MEDS: Nystatin Powder 15gm Bottle 1 APPLIC TOPICAL ×2 (05:15→17:12)
[2022-04-20] MEDS: Lidocaine 5% Patch 2 PATCH TOPICAL (05:17)
[2022-04-20] MEDS: Iron Polysaccharide Complex 150 MG CAPSULE PO (05:18)
[2022-04-20] MEDS: Senna/Docusate Sodium 1 Tablet 2 TABLET PO ×2 (05:18→17:11)
[2022-04-20] MEDS: Famotidine 20 MG Tablet PO (05:18)
[2022-04-20] MEDS: oxyCODONE 5 MG Tablet PO ×3 (05:23→17:09)
[2022-04-20] MEDS: Potassium Chloride Oral Tablet 20 MEQ PO (08:14)
[2022-04-20] MEDS: Baclofen 10 MG Tablet PO ×2 (11:51→20:10)
[2022-04-20 16:00] VITALS: BP 138/67; PULSE 79; RESP 16; TEMP 36.8; O2SAT 94
[2022-04-20] MEDS: Acetaminophen 500 MG Tablet 1000 MG PO (20:10)
[2022-04-20] MEDS: Mirtazapine 15 MG Tablet 7.5 MG PO (23:02)
[2022-04-21] MEDS: oxyCODONE 5 MG Tablet PO ×2 (04:02→08:11)
[2022-04-21] MEDS: Acetaminophen 500 MG Tablet 1000 MG PO (04:02)
[2022-04-21] MEDS: Senna/Docusate Sodium 1 Tablet 2 TABLET PO ×2 (06:27→18:31)
[2022-04-21] MEDS: Iron Polysaccharide Complex 150 MG CAPSULE PO (06:27)
[2022-04-21] MEDS: Famotidine 20 MG Tablet PO (06:27)
[2022-04-21] MEDS: Lidocaine 5% Patch 2 PATCH TOPICAL (06:28)
[2022-04-21] MEDS: Nystatin Powder 15gm Bottle 1 APPLIC TOPICAL ×2 (06:29→18:00)
[2022-04-21] MEDS: Cefazolin 2 GM in 0.9% Normal Saline 100 ML IV ×3 (06:30→21:15)
[2022-04-21] MEDS: Menthol/Lanolin/Calamine/Znox 113 GM Tube 1 APPLIC TOPICAL ×2 (06:40→17:59)
[2022-04-21] MEDS: Potassium Chloride Oral Tablet 20 MEQ PO (08:09)
--- NOTE | 2022-04-21 08:26 | NURSING ---
Pt vomited x2 after taking Potassium pill did not see medication in emesis bag. Pt stated that she cannot stand the taste of the potassium pill and makes her nauseated at times. Pt up to chair stating she feels better at this time. Call light within reach.
[2022-04-21] MEDS: 0.9% Normal Saline 1,000 ML 75 ML IV (10:46)
[2022-04-21] MEDS: 0.9% Saline Lock 10 ML Syringe IV ×2 (10:47→17:52)
[2022-04-21 11:55] VITALS: BP 141/86; PULSE 91; TEMP 36.6; O2SAT 97
--- NOTE | 2022-04-21 12:03 | NURSING ---
At approx 1155 AIR AND HYDRONIC BALANCING TECHNICIAN called nursing into pts room. Upon entering room pt was observed laying on her right side with her arm underneath her in between her wheelchair and bedside table and legs out stretched in front of her. Pt immediately assessed by nursing, no injuries noted at this time, pt denies hitting her head. ROM and splicing supervisor strength WNL in BUE and BLE, VS WNL, no internal/external rotation of danette hips and denies pain. Pt does complain of some pain in her groin but states it is chronic. Neurochecks WNL, NITHIN. When pt questioned as to what she was doing, she stated I fell asleep and must have slipped out of my chair. Floor to be clean and dry, pt had non-slip foot wear on, call light in reach but not ringing, resident assisted back into bed with 3 assist and a gait belt. Dr. Hatfield and SCOTT updated, N.O. carleenm to wheelchair when up, guerrero per policy, pt last seen around 1130 during rounds.
[2022-04-21 12:41] VITALS: BP 147/84; PULSE 79; O2SAT 96
--- NOTE | 2022-04-21 13:14 | PCM.PN.BLA ---
Progress Note AF VSS maintaining appropriate O2 sat on RA. She is taking Tylenol, Oxycodone and Tramadol for pain - all PRN. She is c/o burning pain in the BL groin area. Denies pain in the buttocks or radiating to the legs. Has osteomyelitis and discitis at L1-2. She is alert and appropriate. The incision is intact with no dehiscence and no erythema. There is no pain with palpation in the mouna-wound area. Impressions 1. radicular pain in BL groin. Will try Gabapentin TID - other medications are not helping.
[2022-04-21 16:00] VITALS: BP 146/83; PULSE 96; RESP 18; TEMP 36.8; O2SAT 92
[2022-04-21] MEDS: Gabapentin 100 MG Capsule PO (16:24)
--- NOTE | 2022-04-21 17:00 | NURSING ---
Addendum entered by Malathi Justice 04/21/22 18:42: Dr. Hatfield updated on pt's x-ray. N.O. to increase Gabapentin 200mg TID. Original Note: Pt crying out in pain and grasping groin stating pain is [address] Hatfield updated and new order for X-ray to pelvic and lumbar sacral, IV morphine 2-4mg q4hr prn, CBC BMP CRP and SED. Labs scheduled for 04/22/22. Will continue to monitor.
--- NOTE | 2022-04-21 17:25 | RAD_ITS ---
STUDY: X-RAY - PELVIS REASON FOR EXAM: Female, 82 years old. Increased Pain to Pelvic region TECHNIQUE: One view of the pelvis was obtained. COMPARISON: None. FINDINGS: There is a non-specific bowel gas pattern. Normal visualized soft tissue structures. Normal bilateral iliac wings, sacroiliac joints and visualized sacrum. Normal visualized bilateral superior and inferior pubic rami. Normal pubic symphysis. Normal ischial tuberosities. There is mild joint space narrowing of both hips without evidence of fracture, subluxation or dislocation. Bilateral pelvic calcifications likely phleboliths. RAD/Pelvis 1 or 2 Views IMPRESSION: Mild bilateral hip osteoarthritis. Bilateral pelvic calcifications likely phleboliths. Electronically Signed: Asher Morales MD, MARSHALL at 17:53 EDT ,
--- NOTE | 2022-04-21 17:25 | RAD_ITS ---
STUDY: X-RAY - LUMBAR SPINE REASON FOR EXAM: Female, 82 years old. Back Pain TECHNIQUE: 5 view(s) of the lumbar spine were obtained. COMPARISON: None FINDINGS: There is a mild levoscoliosis. There is severe wedge deformity at L1. At the L1-2 level there is severe loss of disc space height with irregularity of the adjacent endplates. This could represent discitis or severe degenerative disc disease. Remainder of levels demonstrate mild anterior osteophyte formation moderate loss of disc space height. Stable alignment. The soft tissue structures are unremarkable. RAD/L/S Spine Min 4 Views IMPRESSION: Severe loss of disc space height L1-2 with severe loss of vertebral body height L1. Given the irregularity of the endplates at L1-2 findings are consistent with discitis or severe degenerative disc disease. Moderate degenerative changes remainder of lumbar spine. Electronically Signed: Asher Morales MD, MARSHALL at 17:55 EDT ,
[2022-04-21] MEDS: Morphine 2 MG/ML Syringe IV (17:50)
[2022-04-21] MEDS: Mirtazapine 15 MG Tablet 7.5 MG PO (21:21)
[2022-04-21 22:00] VITALS: PULSE 100; RESP 16; O2SAT 90
[2022-04-22] MEDS: 0.9% Normal Saline 1,000 ML 75 ML IV (02:55)
[2022-04-22] MEDS: Cefazolin 2 GM in 0.9% Normal Saline 100 ML IV ×3 (05:24→22:12)
[2022-04-22] MEDS: oxyCODONE 5 MG Tablet PO ×2 (05:25→15:20)
[2022-04-22] MEDS: Baclofen 10 MG Tablet PO (05:25)
[2022-04-22] MEDS: Iron Polysaccharide Complex 150 MG CAPSULE PO (05:26)
[2022-04-22] MEDS: Famotidine 20 MG Tablet PO (05:26)
[2022-04-22] MEDS: Lidocaine 5% Patch 2 PATCH TOPICAL (05:26)
[2022-04-22] MEDS: Nystatin Powder 15gm Bottle 1 APPLIC TOPICAL ×2 (05:37→17:32)
[2022-04-22] MEDS: Menthol/Lanolin/Calamine/Znox 113 GM Tube 1 APPLIC TOPICAL ×2 (05:37→17:31)
[2022-04-22] MEDS: Senna/Docusate Sodium 1 Tablet 2 TABLET PO ×2 (05:46→17:31)
[2022-04-22 05:53] LABS: Hematocrit 24.4 % (37-47); Hemoglobin 7.8 g/dL (12.0-15.0); Mean Corpuscular Hgb 29.7 pg (27.0-32.0); Mean Corpuscular Volume 92.8 fL (81-99); Mean Platelet Vol. 11.1 fl (6.2-12.0); Platelet Count 226 K/mm3 (150-450); RBC Distribution Width SD 53.8 fl (35.1-43.9); Red Blood Count 2.63 M/mm3 (4.2-5.4); White Blood Count 9.5 K/mm3 (4.4-11.0)
[2022-04-22 06:42] LABS: Anion Gap 7 (5-15); BUN 13 mg/dL (7-18); BUN/Creat Ratio 11.3 RATIO (10-20); Calcium,Total 7.5 mg/dL (8.5-10.1); Chloride 113 mmol/L (98-107); Creatinine, Serum 1.15 mg/dL (0.55-1.02); EST Glomerular Filtration Rate 48 mL/min (>60); Est Glom Filt Rate - Afr Amer 58 mL/min (>60); Estimated Creatinine Clearance 33.13 ml/min; Glucose 86 mg/dL (74-106); Potassium 2.5 mmol/L (3.5-5.1); Sodium Level 147 mmol/L (136-145)
--- NOTE | 2022-04-22 06:55 | NURSING ---
Notified by lab of critical potassium value of 2.5. Physician to be notified.
[2022-04-22 06:57] LABS: Erythrocyte Sedimentation Rate 18 mm/hr (0-30)
--- NOTE | 2022-04-22 07:20 | NURSING ---
Dr. Hatfield notified of critical K+ level 2.5. New order for KCl 40mEq this AM. To continue other orders.
[2022-04-22] MEDS: Potassium Chloride Oral Tablet 20 MEQ PO ×3 (07:54→17:32)
[2022-04-22] MEDS: Gabapentin 100 MG Capsule 200 MG PO ×3 (09:26→19:18)
--- NOTE | 2022-04-22 10:21 | PCM.PROGNOTE ---
Subjective Subjective Afebrile VSS Maintaining appropriate oxygen saturation on RA Oral intake is poor, however she is receiving IV fluids. Today she took 75-100% of her breakfast......hopefully this will be a new trend. Discussed with nursing - no problems that need addressed Reviewed the PT/OT/ST notes Medication list reviewed. Has not taken any Tramadol since the . She takes Tylenol no more than once daily. Takes an occasional Baclofen. Took only 1 dose of MS yesterday and was finally able to relax. the stop date on the Ancef is 05/31/22. She is being treated for osteomyelitis of the Lumbar spine, abscess in the epidural space and discitis due to MSSA. She has no hardware in her back All lab was personally reviewed. White blood cell count is normal at 9.5. Hemoglobin is down to 7.8 from 8.3 on 04/19/2022. Platelets are within normal limits. ESR is 18. CRP is elevated at 81.3. Sodium is increased at 147 and the potassium is once again low at 2.5. The BUN is 13 and the creatinine is 1.15 for creatinine clearance of 33.13. Creatinine on 03/24/2022 was 0.92. Denies CP, SOB, palpitations, lightheadedness, calf pain, N/V/abd pain. Tells me that she slept well last night. She has a poor appetite. She was able to get into the WC today and per nursing she is having less pain. LS spine and pelvis XRAYS last night had no fractures. Not tearful today. Objective Data Objective Data Vital Signs: Vital Signs Temp Pulse Resp BP Pulse Ox 98.3 F 100 16 146/83 H 90 04/21/22 16:00 04/21/22 22:00 04/21/22 22:00 04/21/22 16:00 04/21/22 22:00 Oxygen Delivery Method Room Air Weight: 204 lb 6 oz Body Mass Index (BMI) 34.8 Intake & Output: Intake and Output for Last 24 Hours 04/20/22 04/21/22 04/22/22 23:59 23:59 23:59 Intake Total 2637.5 / 2637.5 1430 / 1430 1470 / 1470 Balance 2637.5 / 2637.5 1430 / 1430 1470 / 1470 Lab / Micro Data Result Diagrams: 04/22/22 05:24 04/22/22 05:24 Labs: Laboratory Results - last 24 hr 04/22/22 05:24: WBC 9.5, RBC 2.63 L, Hgb 7.8 L, Hct 24.4 L, MCV 92.8, MCH 29.7, MCHC 32.0, RDW Std Deviation 53.8 H, RDW Coeff of Enedina 16.0 H, Plt Count 226, MPV 11.1, ESR 18 04/22/22 05:24: Sodium 147 H, Potassium 2.5 L*, Chloride 113 H, Carbon Dioxide 27.0, Anion Gap 7, BUN 13, Creatinine 1.15 H, Estim Creat Clear Calc 33.13, Est GFR (MDRD) Af Amer 58 L, Est GFR (MDRD) Non-Af 48 L, BUN/Creatinine Ratio 11.3, Glucose 86, Calcium 7.5 L, C-React Prot Ext Range 81.30 H Micro: Microbiology 04/22/22 09:37 Nasal Secretion SARS-CoV-2 Antigen (Rapid) - Final 04/14/22 22:45 Nasal Secretion SARS-CoV-2 Antigen (Rapid) - Final 04/11/22 19:00 Nasal Secretion SARS-CoV-2 Antigen (Rapid) - Final Radiography Diagnostic Testing: Radiology Impression Lumbar Spine X-Ray 04/21/22 17:25 IMPRESSION: Severe loss of disc space height L1-2 with severe loss of vertebral body height L1. Given the irregularity of the endplates at L1-2 findings are consistent with discitis or severe degenerative disc disease. Moderate degenerative changes remainder of lumbar spine. Electronically Signed: Asher Morales MD, MARSHALL at 17:55 EDT , Pelvis X-Ray 04/21/22 17:25 IMPRESSION: Mild bilateral hip osteoarthritis. Bilateral pelvic calcifications likely phleboliths. Electronically Signed: Asher Morales MD, JD at 17:53 EDT , Physical Exam Const alert and oriented x3 Constitutional Narrative: Lying on her side in bed. She is eating lying down. Afraid to sit up because it brings on the groin pain in the past.....but, she was able to sit in the WC today for therapy. General Appearance: cooperative HEENT Mouth: dry mucous membranes Resp normal respiratory effort Resp Narrative: able to speak in full sentences. No cough. Lying on her side in bed flat with no SOB. Cardio regular rate, regular rhythm and no gallops GI normal to inspection, nondistended, normoactive bowel sounds, soft to palpation and non-tender GI Narrative: She had a BM today and she denies being constipated. Extremity no calf tenderness General Extremity: Negative for edema Skin General Skin Exam: dry skin Rashes: no rashes Neuro CN's II-XII intact bilaterally Psych thought process normal and affect normal Appearance: appropriate Assessment & Plan Assessment/Plan (1) Debility: PLAN: Continue PT/OT. Will have her get up in the chair for supper daily. (2) Osteomyelitis of vertebra, lumbar region: PLAN: Continue the ANcef 2 GM Q8H for MSSA infection. Stop date is 05/31/22. (3) Abscess in epidural space of lumbar spine: (4) Discitis of lumbar region: (5) Radicular pain of both lower extremities: PLAN: Continue the Gabapentin 200 mg TID. She seems much more comfortable today. She was up in the WC today with no complaint of pain. Schedule Oxycodone at 0800 and 1600. Tyelnol 1 mg PO Q 8H. Pt forgets to ask for pain medication. (6) Normochromic normocytic anemia: PLAN: Hemoccult stool ordered. Recheck an HH in a few days. Check iron studies in the AM. (7) Hypokalemia: PLAN: Increase the supplement to 20 MEQ BID. She got 40 MEQ this morning. (8) Poor appetite: PLAN: She was started on Mirtazipine last night and has no adverse effect. Hoping this will stimulate the appetite. Not taking much fluid so will need to continue the IV fluids for now. (9) Hypernatremia: PLAN: Change the IVF to 0.45 NS with 10 MEQ KCL. Recehck a BMP in the AM.
[2022-04-22 10:40] VITALS: BP 133/78; BP 134/86; BP 139/73; PULSE 104; PULSE 77
[2022-04-22 10:59] LABS: Albumin, Serum 1.9 g/dL (3.2-5.0)
[2022-04-22] MEDS: Acetaminophen 500 MG Tablet 1000 MG PO ×2 (11:13→22:21)
[2022-04-22] MEDS: 0.9% Saline Lock 10 ML Syringe IV (13:12)
[2022-04-22 14:04] VITALS: PULSE 90; RESP 24; TEMP 36.6; O2SAT 91
[2022-04-22] MEDS: Mirtazapine 15 MG Tablet PO (22:21)
[2022-04-23] MEDS: Cefazolin 2 GM in 0.9% Normal Saline 100 ML IV ×3 (05:36→21:41)
[2022-04-23] MEDS: Menthol/Lanolin/Calamine/Znox 113 GM Tube 1 APPLIC TOPICAL ×2 (05:43→16:58)
[2022-04-23] MEDS: Nystatin Powder 15gm Bottle 1 APPLIC TOPICAL ×2 (05:44→16:58)
[2022-04-23] MEDS: Famotidine 20 MG Tablet PO (05:45)
[2022-04-23] MEDS: Lidocaine 5% Patch 2 PATCH TOPICAL (05:45)
[2022-04-23] MEDS: Acetaminophen 500 MG Tablet 1000 MG PO ×3 (05:45→21:34)
[2022-04-23] MEDS: Senna/Docusate Sodium 1 Tablet 2 TABLET PO ×2 (05:45→16:56)
[2022-04-23 06:43] LABS: Anion Gap 7 (5-15); BUN 17 mg/dL (7-18); BUN/Creat Ratio 13.4 RATIO (10-20); Calcium,Total 7.7 mg/dL (8.5-10.1); Chloride 110 mmol/L (98-107); Creatinine, Serum 1.27 mg/dL (0.55-1.02); EST Glomerular Filtration Rate 43 mL/min (>60); Est Glom Filt Rate - Afr Amer 52 mL/min (>60); Ferritin 758 ng/mL (8-252); Glucose 85 mg/dL (74-106); Iron 54 ug/dL (50-170); Iron Binding Capacity,Total 113 ug/dL (250-450); PERCENT IRON SATURATION 47.8 % (15.0-55.0); Sodium Level 144 mmol/L (136-145)
[2022-04-23] MEDS: Potassium Chloride Oral Tablet 20 MEQ PO ×2 (08:13→17:01)
[2022-04-23] MEDS: oxyCODONE 5 MG Tablet PO ×2 (08:13→16:57)
[2022-04-23] MEDS: Ascorbic Acid 500 MG Tablet PO (08:13)
[2022-04-23] MEDS: Gabapentin 100 MG Capsule 200 MG PO ×3 (09:53→16:57)
[2022-04-23] MEDS: Iron Polysaccharide Complex 150 MG CAPSULE PO (09:53)
--- NOTE | 2022-04-23 09:53 | PN_ITS ---
Subjective Subjective Afebrile VSS Maintaining appropriate oxygen saturation on RA Oral intake - She took 720 PO yesterday. took only 25-49% of her lunch today. Incontinent of urine at times Discussed with nursing - no problems that need addressed Reviewed the PT/OT/ST notes Medication list reviewed. Potassium supplementation was increased to 20 mEq twice daily yesterday. She also received additional supplements for potassium o f 2.5. All lab was personally reviewed. Sodium is down to 144 today from 147 yesterday. Potassium is 3.0, up from 2.5 with supplements yesterday. The BUN is 17 and the creatinine is 1.27 which is within her baseline. Iron saturation is 47.8% and the ferritin is 758. Serum iron is normal. Hemoccult stool was negative. She has no hx of Gitelman's or Barter's syndromes. She is still c/o BL groin pain but, she looks much more comfortable now that the Gabapentin has been added to her drug regimen. No fractures of the pelvis or LS spine after she fell out of her WC this weekend. She did not get out of bed for dinner yesterday and she is c/o increased weakness in her legs. We discussed that the legs will continue to get weaker unless she gets out of bed and does therapy. The anemia may certainly be contributing to weakness. Stool for occult blood is negative. Denies SOB/CP/dizziness. She has refused to get out of bed for the past 3 days. PT worked with her today and she was max assist for SPT. She c/o pain when seated in the WC and insisted on getting back in bed. She was able to take steps to get in bed with less assistance required than required to transfer and SPT. Objective Data Objective Data Vital Signs: Vital Signs Temp Pulse Resp BP Pulse Ox 97.8 F 90 24 H 139/73 H 91 04/22/22 14:04 04/22/22 14:04 04/22/22 14:04 04/22/22 10:40 04/22/22 14:04 Oxygen Delivery Method Room Air Weight: 204 lb 6 oz Body Mass Index (BMI) 34.8 Intake & Output: Intake and Output for Last 24 Hours 04/21/22 04/22/22 04/23/22 23:59 23:59 23:59 Intake Total 1430 / 1430 2049 1005 / 1005 Balance 1430 / 1430 2049 1005 / 1005 Lab / Micro Data Result Diagrams: 04/22/22 05:24 04/23/22 05:24 Labs: Laboratory Results - last 24 hr 04/22/22 05:24: Albumin 1.9 L 04/23/22 05:24: Sodium 144, Potassium 3.0 L, Chloride 110 H, Carbon Dioxide 27.0, Anion Gap 7, BUN 17, Creatinine 1.27 H, Estim Creat Clear Calc 30.00, Est GFR (MDRD) Af Amer 52 L, Est GFR (MDRD) Non-Af 43 L, BUN/Creatinine Ratio 13.4, Glucose 85, Calcium 7.7 L, Iron 54, TIBC 113 L, Iron Saturation 47.8, Ferritin 758 H Micro: Microbiology 04/22/22 17:00 Stool Stool Occult Blood (RICHAR) - Final 04/22/22 09:37 Nasal Secretion SARS-CoV-2 Antigen (Rapid) - Final 04/14/22 22:45 Nasal Secretion SARS-CoV-2 Antigen (Rapid) - Final 04/11/22 19:00 Nasal Secretion SARS-CoV-2 Antigen (Rapid) - Final Physical Exam Const alert Constitutional Narrative: She is lying on her R side in bed and does not appear to be in distress. She is pale. She even eats lying down. General Appearance: uncooperative Eyes conjunctivae normal and no scleral icterus Resp normal respiratory effort, No no retractions and No no use of accessory muscles Resp Narrative: diminished but, CTA after a few deep breaths Effort and Inspection: able to speak in complete sentences Cardio regular rate, regular rhythm and no gallops GI normal to inspection, nondistended, normoactive bowel sounds, soft to palpation and non-tender Extremity no calf tenderness Assessment & Plan Assessment/Plan (1) Debility: (2) Discitis of lumbar region: (3) Osteomyelitis of vertebra, lumbar region: (4) Lumbar spinal stenosis: (5) Abscess in epidural space of lumbar spine: (6) Paraspinal abscess: (7) Normochromic normocytic anemia: (8) Hypokalemia: (9) Hypernatremia: (10) Poor appetite: (11) Radicular pain of both lower extremities: PLAN: 1. No diarrhea, not on a diuretic. Why the persistently low potassiums? Do to CRF? Will check a urine chloride and also check a magnesium. 40 MEQ KCL now in addition to the 20 MEQ BID she will be getting and the 10 of KCL in the IV. 2. Continue the IV fluids until she is able to take at least 1 liter of fluids orally per day. 3. BMP in the AM 4. I tried to encourage her to get out of bed. She is afraid of the pain but, she did not request pain meds when ordered PRN and that Is why I scheduled the Oxycodone. I suspect that the groin pain is radicular. she is on Gabapentin 200 TID and she does seem more comfortable. May need to consider a pain management consult with Dr. Oneil. She may benefit from an epidural although I do not know if ID would approve given the infection? I think depression is also contributing to her not wanting to get out of bed......she was started on Remeron over the weekend to help increase the appetite. I told her if she does not start to be more active she will continue to decline. Will need to consider a repeat MRI of the spine if the groin pain persists. Charges/Coding Visit Charges Inpatient E&M: 03151 SNF Subs L2
[2022-04-23 10:41] LABS: Magnesium 1.5 mg/dL (1.6-2.6)
[2022-04-23 11:03] VITALS: PULSE 78; RESP 20; TEMP 36.4; O2SAT 90
[2022-04-23] MEDS: Potassium Chloride Oral Tablet 20 MEQ 40 MEQ PO (11:47)
--- NOTE | 2022-04-23 13:10 | PT ---
Pt needed max encouragement to get out of bed. she has been refusing to get out of bed this AM and over the past 3 days. Pt was min A for supine<>seated and min A for sit to stands with FWW. During transfer, pt began to lower herself to floor. Pt was instructed to continue to put weight through her legs and stand, pt stated she wanted to sit and was having pain in her groin. Pt was max A x 2 to perform SPT to w/c with FWW. Pt was then c/o pain when seated in w/c. Pt insisting she needed to get back in bed. Pt encouraged to try to sit in w/c since she has not been out of bed today. Pt refusing and stated she wanted to get back into bed. pt was min A x 2 for sit to stands with arm in arm assist. Pt was min/mod A x2 for SPT with arm in arm assist from w/c<>bed. Pt was able to take steps when transferring back to bed with less assistance than previous transfer. pt was max A for seated<>supine. Once pt was supine in bed she stated pain decreased and she felt better. Reminded pt she needed to get out of bed more than once a day and at least be out of bed daily. Pt in agreement to try but stated she feels better laying down. Pt will now be a two-assist for all staff for safety.
[2022-04-23 13:40] VITALS: BP 140/70
[2022-04-23] MEDS: 0.9% Saline Lock 10 ML Syringe IV ×3 (13:58→23:00)
[2022-04-23 15:22] LABS: Urine Chloride 105 mmol/L (Not Establ.)
[2022-04-23] MEDS: Magnesium Sulfate 4gm/100mL 4 GM/100 ML IV.SOLN. IV (16:56)
--- NOTE | 2022-04-23 19:09 | PCA ---
This MEDICAL LAB TECHNOLOGIST offered to help patient to get washed for the night and help with HS care. Patient stated I got washed up real good this morning. Its hurts too much for me to move and i would rather wait until tomorrow. I cant roll without it hurting
[2022-04-23 19:56] VITALS: PULSE 80; RESP 14; O2SAT 95
[2022-04-23] MEDS: Baclofen 10 MG Tablet PO (20:15)
[2022-04-23] MEDS: Mirtazapine 15 MG Tablet PO (21:33)
--- NOTE | 2022-04-23 23:14 | NURSING ---
Declines to get OOB for toileting, requests bed mallory for elimination needs. Incontinent at times of b/b. EAx1 with bed mobility. Max assist with personal hygiene.
[2022-04-24] MEDS: Famotidine 20 MG Tablet PO (05:06)
[2022-04-24] MEDS: Senna/Docusate Sodium 1 Tablet 2 TABLET PO (05:06)
[2022-04-24] MEDS: Magnesium Chloride 64 MG Delay Rel.Tablet 128 MG PO (05:06)
[2022-04-24] MEDS: Baclofen 10 MG Tablet PO (05:06)
[2022-04-24] MEDS: Acetaminophen 500 MG Tablet 1000 MG PO (05:07)
[2022-04-24] MEDS: Menthol/Lanolin/Calamine/Znox 113 GM Tube 1 APPLIC TOPICAL (05:08)
[2022-04-24] MEDS: Cefazolin 2 GM in 0.9% Normal Saline 100 ML IV ×2 (05:08→13:37)
[2022-04-24] MEDS: Nystatin Powder 15gm Bottle 1 APPLIC TOPICAL (05:08)
[2022-04-24] MEDS: 0.9% Saline Lock 10 ML Syringe IV ×4 (05:10→13:37)
[2022-04-24] MEDS: Lidocaine 5% Patch 2 PATCH TOPICAL (05:18)
[2022-04-24] MEDS: Ascorbic Acid 500 MG Tablet PO (08:08)
[2022-04-24] MEDS: Iron Polysaccharide Complex 150 MG CAPSULE PO (08:08)
[2022-04-24] MEDS: Gabapentin 100 MG Capsule 200 MG PO ×2 (08:08→12:26)
[2022-04-24] MEDS: oxyCODONE 5 MG Tablet PO (08:08)
[2022-04-24] MEDS: Potassium Chloride Oral Tablet 20 MEQ PO (08:10)
--- NOTE | 2022-04-24 08:44 | MDS.RN ---
Information for the mds was obtained from review of the clinical record, interview of resident, staff, and direct observation of resident's care.
[2022-04-24 12:28] VITALS: PULSE 81; RESP 20; TEMP 36.7; O2SAT 92
[2022-04-24 13:43] VITALS: BP 113/62
[2022-04-24] MEDS: oxyCODONE 5 MG Tablet 10 MG PO (13:45)
--- NOTE | 2022-04-24 17:21 | NURSING ---
Report called to ER Nurse. Called Adalberto CHAVEZ to update on pt being transferred to Emergency room.
--- NOTE | 2022-04-24 20:10 | DS.PCM_ITS ---
Providers Date of Admission: 04/11/22 Primary Care Physician: Linda Primary Care Phys Consultations 04/11/22 20:22 Consult: Infectious Disease Routine Consulting Provider: Gavin Mcdonnell Reason for Consult: lumbar discitis/osteomyelitis/epidural/paraspinal abscess s/p debridement. EMERGENT Consult: No MD Notified: Yes Date Notified: 04/11/22 Time Notified: 20:25 Method of Notification: Verbal Reason For Visit: BACK ABSCESS Diagnosis Discharge Diagnosis (1) Debility: Status: Acute Code(s): R53.81 - Other malaise (2) Discitis of lumbar region: Status: Acute Code(s): M46.46 - Discitis, unspecified, lumbar region (3) Osteomyelitis of vertebra, lumbar region: Status: Acute Code(s): M46.26 - Osteomyelitis of vertebra, lumbar region (4) Lumbar spinal stenosis: Status: Acute Code(s): M48.061 - Spinal stenosis, lumbar region without neurogenic claudication (5) Abscess in epidural space of lumbar spine: Status: Acute Code(s): G06.1 - Intraspinal abscess and granuloma (6) Paraspinal abscess: Status: Acute Code(s): M46.20 - Osteomyelitis of vertebra, site unspecified (7) Normochromic normocytic anemia: Status: Acute Code(s): D64.9 - Anemia, unspecified (8) Hypokalemia: Status: Acute Code(s): E87.6 - Hypokalemia (9) Hypernatremia: Status: Resolved Code(s): E87.0 - Hyperosmolality and hypernatremia (10) Poor appetite: Status: Acute Code(s): R63.0 - Anorexia (11) Radicular pain of both lower extremities: Status: Acute Code(s): M54.10 - Radiculopathy, site unspecified Medications at Discharge Home Medications lidocaine 1.8 patch TRANSDERMAL DAILY 04/02/22 menthol-zinc oxide [Calmoseptine] 1 applic TOPICAL BID 04/02/22 famotidine 20 mg PO DAILY 04/11/22 acetaminophen 1,000 mg PO Q8 #0 tab 04/24/22 ascorbic acid (vitamin C) 500 mg PO BREAKFAST #0 tab 04/24/22 baclofen 10 mg PO TID PRN PRN #0 tab 04/24/22 gabapentin 200 mg PO TIDCM #0 cap 04/24/22 magnesium chloride [Mag 64] 128 mg PO DAILY #0 tab 04/24/22 morphine 2 mg IV Q4H PRN PRN #0 ml 04/24/22 oxycodone 5 mg PO 0800,1600 #0 tab 04/24/22 polysaccharide iron complex [Ferrex 150] 150 mg PO BREAKFAST #0 cap 04/24/22 potassium chloride [Klor-Con M20] 20 meq PO BIDCM #0 tab 04/24/22 saliva substitute combo no.9 [Biotene Dry Mouth Oral Rinse] 15 ml MUCOUS MEMBRANE 5X/DAY PRN #0 ml 04/24/22 sennosides-docusate sodium [Stool Softener-Stimulant Laxat] 2 tab PO BID #0 tab 04/24/22 Hospital Course Operations - (Incision/drainage lumbar epidural abscess.) Procedures None Summary of Care Provided Minutes Spent on Discharge: 35 Hospital Course: 82 year old female with below past medical history hospitalized for L1-L2 discitis/osteomyelitis, lumbar epidural/paraspinal abscess, severe lumbar spinal stenosis, underwent incision, debridement, drainage 04/03/2022, admitted to TCU with debility, here for rehabilitation, strengthening, intravenous antibiotics, prior to discharge home alone. 04/24/2022 Resident unable to get out of bed, she wanted to eat breakfast lying down. Behavioral issues was a concern, but needed to rule out worsening epidural abscess. 04/24/2022 MRI of LS spine showed, 1. Severe Discitis and osteomyelitis at L1-2 with severe canal stenosis and improved epidural abscesses size and improved left paraspinal abscesses. The right paraspinal abscesses is larger. 2. Subcutaneous fluid collection measures 39x 16mm (caudal fluid collection) and 21 x 11mm (cephalad fluid collection). Discharge to [facility] for intractable low back pain, worsening right paraspinal abscess for evaluation, admission to hospital. Physical Exam Const alert General Appearance: cooperative HEENT normocephalic Eyes PERRL and EOMs intact bilaterally Neck supple, no JVD and no carotid bruits Resp normal respiratory effort, normal air movement and clear to auscultation bilaterally Cardio regular rate and regular rhythm GI normal to inspection, nondistended, normoactive bowel sounds, non-tender and non-distended Extremity normal capillary refill General Extremity: Negative for edema Skin no rashes or lesions noted General Skin Exam: no breakdown Psych affect normal Appearance: appropriate Weight / BMI Weight Weight: 92.703 kg Body Mass Index (BMI) 34.8 ABG / Lab / Microbiology Data Result Diagrams: 04/22/22 05:24 04/23/22 05:24 Microbiology: Microbiology 04/22/22 17:00 Stool Stool Occult Blood (RICHAR) - Final 04/22/22 09:37 Nasal Secretion SARS-CoV-2 Antigen (Rapid) - Final 04/14/22 22:45 Nasal Secretion SARS-CoV-2 Antigen (Rapid) - Final 04/11/22 19:00 Nasal Secretion SARS-CoV-2 Antigen (Rapid) - Final D/C Instructions Discharge Diet: No restrictions Weight Bearing Status: Weight bearing as tolerated Call your doctor if you observe: Fever of 101 or Higher, Inability to urinate, Inability to have a bowel movement, Shortness of breath, Dizziness, Fainting spells, Swelling in the ankles, Chest pain and Uncontrolled pain Additional Instructions: Discharge to [facility] for intractable low back pain, worsening right paraspinal abscess for evaluation, admission to hospital. Please Follow Up With: Dr. Mendez When: N/A. Meaningful Use Info Meaningful Use Diagnoses (Choose all that apply): None applicable Discharge Plan Admission Admit Date/Time: 04/11/22 17:32 Primary Reason for Your Visit: Debility. Attending Provider: Merlin Escalera Chi Primary Care Provider: Care Physician,No Primary Consulting Providers: Gavin Mcdonnell Instructions Additional Instructions / Restrictions: Discharge to [facility] for intractable low back pain, worsening right paraspinal abscess for evaluation, admission to hospital. Discharge Orders/Prescriptions Prescriptions: New polysaccharide iron complex [Ferrex 150] 150 mg iron Capsule 150 mg PO BREAKFAST Qty: 0 RF: 0 sennosides-docusate sodium [Stool Softener-Stimulant Laxat] 8.6-50 mg Tablet 2 tab PO BID Qty: 0 RF: 0 acetaminophen 500 mg Tablet 1,000 mg PO Q8 Qty: 0 RF: 0 potassium chloride [Klor-Con M20] 20 mEq Tablet,Er Particles/Crystals 20 meq PO BIDCM Qty: 0 RF: 0 ascorbic acid (vitamin C) 500 mg Tablet 500 mg PO BREAKFAST Qty: 0 RF: 0 baclofen 10 mg Tablet 10 mg PO TID PRN PRN (Reason: Muscle Spasm) Qty: 0 RF: 0 gabapentin 100 mg Capsule 200 mg PO TIDCM Qty: 0 RF: 0 oxycodone 5 mg Tablet 5 mg PO 0800,1600 Qty: 0 RF: 0 Mag 64 64 mg Tablet,Delayed Release (Dr/Ec) 128 mg PO DAILY Qty: 0 RF: 0 morphine 2 mg/mL Syringe 2 mg IV Q4H PRN PRN (Reason: Pain 5-10) Qty: 0 RF: 0 Biotene Dry Mouth Oral Rinse Mouthwash 15 ml mucous membrane 5X/DAY PRN (Reason: Dry Mouth) Qty: 0 RF: 0 Continued menthol-zinc oxide [Calmoseptine] 0.44-20.6 % Ointment 1 applic TOPICAL BID RF: 0 lidocaine 1.8 % Adhesive Patch,Medicated 1.8 patch transdermal DAILY RF: 0 famotidine 20 mg Tablet 20 mg PO DAILY RF: 0 Discontinued polyethylene glycol 3350 [Miralax] 17 gram Powder In Packet 17 g PO DAILY RF: 0 tramadol [Ultram] 50 mg Tablet 50 mg PO Q6H PRN (Reason: Pain) RF: 0 acetaminophen [Tylenol Ex Str Rapid Release] 500 mg Tablet 1,000 mg PO Q6H PRN PRN (Reason: Pain) RF: 0 oxycodone [OxyIR] 5 mg Capsule 5 mg PO Q4H PRN (Reason: Pain) RF: 0 bisacodyl [Dulcolax (bisacodyl)] 5 mg Tablet,Delayed Release (Dr/Ec) 10 mg PO DAILY RF: 0 Senokap-DSS Capsule 1 cap PO BID RF: 0 cefazolin 2 gram Recon Soln 2 g IV Q8 RF: 0 Referrals / Follow Up: Adelina Saez MD [NON-STAFF] - 05/30/22 9:00 am (arrive 15 mins prior to appointment and bring insurance card and photo ID) Care Physician,No Primary [Primary Care Provider] - Disposition Disposition (needs filled in before D/C Order can be placed): [facility]
== END 2022-04-24 20:10 | disposition short-term general hospital (02) | DRG 95 ==
PROVIDERS: Internal Medicine; Admitting Provider Family Medicine Geriatric Medicine; Visit Provider Family Medicine Geriatric Medicine
DX: G06.1 Intraspinal abscess and granuloma (principal); M46.26 Osteomyelitis of vertebra, lumbar region; M48.061 Spinal stenosis, lumbar region without neurogenic claudication; M46.46 Discitis, unspecified, lumbar region; K21.9 Gastro-esophageal reflux disease without esophagitis; E87.6 Hypokalemia; B95.61 Methicillin susceptible Staphylococcus aureus infection as the cause of diseases classified elsewhere; M47.26 Other spondylosis with radiculopathy, lumbar region; D64.9 Anemia, unspecified; Z79.899 Other long term (current) drug therapy; F32.A Depression, unspecified; N20.0 Calculus of kidney
CPT/HCPCS: 36415; 72110; 72170; 74018; 80048; 80076; 82040; 82274; 82436; 82728; 83540; 83550; 83735; 85025; 85027; 85652; 86140; 87426; 87811; 92507; 92526; 92610; 97110; 97116; 97162; 97166; 97530; 97535; 97802; J7030; J7050; A4216

== ENCOUNTER 2022-04-24 17:26 | Emergency (ER) | payer OTHER, MEDICARE, SELFPAY ==
[2022-04-24 17:27] VITALS: BP 150/90; PULSE 90; RESP 16; TEMP 36.4; O2SAT 96; BMI 33.0
[2022-04-24 17:34] VITALS: BP 162/91; PULSE 89; RESP 16; O2SAT 95
--- NOTE | 2022-04-24 17:46 | EX.ED.DYSGE1 ---
HPI History of Present Illness Chief Complaint: Lower Extremity Injury Narrative Narrative: Patient had recent spinal epidural abscess surgery at [facility], she presented to a rehab facility and was found to have somewhat worsening of one of the paraspinal abscesses than before. She has chronic weakness, she does tell me that she thinks she is more weak than before, apparently even yesterday and the day before she was able to lift her legs off the bed and now she cannot. She has no bowel or bladder incontinence no urinary retention symptoms. She has no saddle anesthesia. . [facility] Medical History Debility General weakness Kidney calculi Low back pain Osteomyelitis Spinal abscess UTI (urinary tract infection) Home Medications acetaminophen [Tylenol Ex Str Rapid Release] 1,000 mg PO Q6H PRN PRN 04/02/22 [History Last Taken Unknown] bisacodyl [Dulcolax (bisacodyl)] 10 mg PO DAILY 04/02/22 [History Last Taken Unknown] lidocaine 1.8 patch TRANSDERMAL DAILY 04/02/22 [History Last Taken Unknown] menthol-zinc oxide [Calmoseptine] 1 applic TOPICAL BID 04/02/22 [History Last Taken Unknown] oxycodone [OxyIR] 5 mg PO Q4H PRN 04/02/22 [History Last Taken Unknown] polyethylene glycol 3350 [Miralax] 17 g PO DAILY 04/02/22 [History Last Taken Unknown] senna-docusate sodium [Senokap-DSS] 1 cap PO BID 04/02/22 [History Last Taken Unknown] tramadol [Ultram] 50 mg PO Q6H PRN 04/02/22 [History Last Taken Unknown] cefazolin 2 g IV Q8 04/11/22 [History Last Taken Unknown] famotidine 20 mg PO DAILY 04/11/22 [History Last Taken Unknown] Allergy/AdvReac Type Severity Reaction Status Date / Time bee venom protein (honey bee) AdvReac Other Verified 04/24/22 17:27 Social History household members: none Smoking Status: Never smoker alcohol intake: never substance use type: does not use ROS ROS ED ROS Narrative Past medical history: Chronic debility, 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 History of follow-up with anemia and history of kidney stones Medications: Reviewed Social history: Noncontributory Review of systems: All systems negative except as indicated General: No recent fever Eyes: No visual changes ENT: No upper airway congestion, normal voice Neck: No neck pain Cardiovascular: No chest pain Respiratory: No shortness of breath or cough Gastrointestinal: No abdominal pain, nausea vomiting or diarrhea Genitourinary: No dysuria Musculoskeletal: Weakness lower extremities. Back pain as in HPI Skin: No rash Neurological: Increased weakness in the lower extremities Psych: No recent behavioral changes Hematologic: No easy bleeding or easy bruising EXAM Physical Exam Narrative Exam Narrative: Vitals reviewed General: Patient appears relatively comfortable HEENT: Moist mucous membranes Neck: Nontender Cardiovascular normal heart rate Respiratory: No respiratory difficulty speaking in full sentences Abdomen: Soft and nontender, there is no suprapubic mass or pain Back: There is some tenderness over the lumbar region, pain is spinal and paraspinal both. Extremities: Has difficulty lifting both legs off the bed. But she can move the legs, sensory is intact. Neurological: There is normal plantar flexion and dorsiflexion of both feet and great toes. Patellar and Achilles reflexes are 1+ bilaterally. Decreased strength as above Skin: No rash Psychiatric: Slightly anxious. Const Vital Signs: 04/24/22 17:27 04/24/22 17:34 Temperature 97.6 F L Temperature Source Temporal Pulse Rate 90 89 Respiratory Rate 16 16 Blood Pressure 150/90 H 162/91 H Blood Pressure Mean 110 114 Pulse Ox 96 95 Oxygen Delivery Method Room Air Room Air MDM MDM MDM Narrative Medical decision making narrative: Patient surgery was at [facility], I will transfer her there for definitive care. She has been receiving antibiotics IV thus I did not give her any other antibiotics. Discharge Plan Triage Chief Complaint: Lower Extremity Injury ED Provider: Chente Rosen Dx/Rx/DC Orders Clinical Impression: Discitis, Abscess in epidural space of lumbar spine, Post-operative complication Prescriptions: No Action polyethylene glycol 3350 [Miralax] 17 gram Powder In Packet 17 g PO DAILY RF: 0 tramadol [Ultram] 50 mg Tablet 50 mg PO Q6H PRN (Reason: Pain) RF: 0 acetaminophen [Tylenol Ex Str Rapid Release] 500 mg Tablet 1,000 mg PO Q6H PRN PRN (Reason: Pain) RF: 0 oxycodone [OxyIR] 5 mg Capsule 5 mg PO Q4H PRN (Reason: Pain) RF: 0 bisacodyl [Dulcolax (bisacodyl)] 5 mg Tablet,Delayed Release (Dr/Ec) 10 mg PO DAILY RF: 0 Senokap-DSS Capsule 1 cap PO BID RF: 0 menthol-zinc oxide [Calmoseptine] 0.44-20.6 % Ointment 1 applic TOPICAL BID RF: 0 lidocaine 1.8 % Adhesive Patch,Medicated 1.8 patch transdermal DAILY RF: 0 famotidine 20 mg Tablet 20 mg PO DAILY RF: 0 cefazolin 2 gram Recon Soln 2 g IV Q8 RF: 0 Primary Care Provider: Care Physician,No Primary Referrals: Care Physician,No Primary [Primary Care Provider] - Disposition Disposition: Transfer to Another Type [facility]
--- NOTE | 2022-04-24 17:54 | NURSING ---
1743 CALLED PAHERNESTO BERRIOS ABOUT TRANSFER FAXED FACESHEET
--- NOTE | 2022-04-24 18:27 | CM.ED ---
Social Work Note Reason for Referral: No PCP SW reviewed chart, pt has no PCP. SW met with pt. Pt confirms she has no PCP. SW provided pt with PCP list. Radha Munoz REGULATORY ANALYST, UTILITY TECH
[2022-04-24 18:29] LABS: Absolute Lymphocyte Count 0.93 X10^3/uL (0.83-4.51); Absolute Neutrophil Count 5.9 X10^3/uL (2.0-7.7); Basophil# 0.05 X10^3/uL; Basophil% 0.6 % (0-1); Eosinophil# 0.38 X10^3/uL; Eosinophils% 4.7 % (0-5); Hematocrit 31.3 % (37-47); Hemoglobin 9.9 g/dL (12.0-15.0); Lymphocyte # 0.93 X10^3/ul (0.83-4.51); Lymphocyte % 11.6 % (19-41); Mean Corp Hgb Conc 31.6 g/dL (32-36); Mean Corpuscular Volume 94.8 fL (81-99); Mean Platelet Vol. 10.8 fl (6.2-12.0); Monocyte# 0.75 X10^3/uL; Monocyte% 9.4 % (0-10); NRBC Flagged by Analyzer 0 % (0-5); Neutrophil # 5.85 X10^3/uL (2.7-7.7); Neutrophil % 73.1 % (47-70); Platelet Count 236 K/mm3 (150-450); RBC Distribution Width SD 58.5 fl (35.1-43.9)
[2022-04-24 18:37] LABS: Erythrocyte Sedimentation Rate 29 mm/hr (0-30)
[2022-04-24 18:46] LABS: ALB/GLOB Ratio 0.5 RATIO (0.9-2.4); AST(SGOT) 12 U/L (15-37); Alanine Aminotransfer ALT/SGPT < 6 U/L (13-56); Albumin, Serum 2.1 g/dL (3.2-5.0); Alkaline Phosphatase 115 U/L (45-117); Anion Gap 8 (5-15); BUN 17 mg/dL (7-18); BUN/Creat Ratio 13.7 RATIO (10-20); Chloride 111 mmol/L (98-107); Creatinine, Serum 1.24 mg/dL (0.55-1.02); EST Glomerular Filtration Rate 44 mL/min (>60); Est Glom Filt Rate - Afr Amer 53 mL/min (>60); Estimated Creatinine Clearance 30.73 ml/min; Globulin 3.9 g/dL (2.2-4.2); Glucose 89 mg/dL (74-106); Potassium 3.8 mmol/L (3.5-5.1); Sodium Level 144 mmol/L (136-145)
[2022-04-24 19:28] VITALS: BP 161/87; PULSE 93; RESP 16; O2SAT 95
[2022-04-24 21:03] VITALS: BP 159/85; PULSE 94; RESP 14; O2SAT 98
== END 2022-04-24 21:32 | disposition other institution (70) ==
PROVIDERS: Emergency Provider Emergency Medicine; Visit Provider Emergency Medicine
DX: G06.1 Intraspinal abscess and granuloma (principal); M46.40 Discitis, unspecified, site unspecified; Z79.899 Other long term (current) drug therapy; T81.40XA Infection following a procedure, unspecified, initial encounter; Y83.8 Other surgical procedures as the cause of abnormal reaction of the patient, or of later complication, without mention of misadventure at the time of the procedure
CPT/HCPCS: 80053; 85025; 85652; 86140; 87811; 99281; 99285; A4216

== ENCOUNTER → 2022-04-24 | Outpatient (CLI) | payer OTHER, MEDICARE, SELFPAY ==
--- NOTE | 2022-04-24 11:04 | MRI_ITS ---
EXAM: MR LUMBAR SPINE WITHOUT AND WITH INTRAVENOUS CONTRAST CLINICAL INDICATION: DISCITIS LUMBAR REGION, increased back pain, decompression t12- L3 TECHNIQUE: Multiplanar and multisequence MR images of the lumbar spine without and with intravenous contrast. This report was created using [employer] report Testif technology. CONTRAST: IV 18 cc clariscan COMPARISON: XR Apr 21 2022 5:26pm, MR Lumbar Spine Apr 02 2022 5:27pm FINDINGS: VERTEBRAE: See below. SPINAL CORD: Unremarkable. Normal position and signal intensity of the conus medullaris. SOFT TISSUES: Subcutaneous fluid collection measures 39x 16mm (caudal fluid collection) and 21 x 11mm (cephalad fluid collection). DISCS/SPINAL CANAL/NEURAL FORAMINA: L1-L2: Severe Discitis and osteomyelitis at L1-2 with severe canal stenosis and improved epidural abscesses size and improved left paraspinal abscesses. The right paraspinal abscesses is larger. L1-2: Loss of intervertebral disc height. There is endplate spondylosis of the vertebral body. There is marrow edema of L1 and L2 with irregularity of the endplates and fracture of L1 and 60% loss of height. There is edema and fluid at the L1-2 disc space. There is paraspinal soft tissue swelling with nonenhancing fluid signal regions in the psoas muscles compatible with abscesses measuring 2.5cm on the right and 1.9 cm on the left. Disc space narrowing with fluid in the disc space. There is 3.8 x 0.7 x 1 cm peripherally enhancing epidural fluid collection compatible with abscess, series 2 and 7 images 06/05. Severe spinal canal stenosis. Bilateral foraminal narrowing. L2-L3: Unremarkable. Normal disc height and morphology. Normal spinal canal and lateral recesses. Normal neuroforamina. L3-L4: Unremarkable. Normal disc height and morphology. Normal spinal canal and lateral recesses. Normal neuroforamina. L4-L5: L4-5: Loss of intervertebral disc height. There is endplate spondylosis of the vertebral body. Normal central canal and intervertebral neuroforamina. There is bilateral facet arthropathy. L5-S1: Loss of intervertebral disc height. There is endplate spondylosis of the vertebral body. Normal central canal and intervertebral neuroforamina. There is bilateral facet arthropathy. MRI/Spine Lumbar W/WO Contrast IMPRESSION: 1. Severe Discitis and osteomyelitis at L1-2 with severe canal stenosis and improved epidural abscesses size and improved left paraspinal abscesses. The right paraspinal abscesses is larger. 2. Subcutaneous fluid collection measures 39x 16mm (caudal fluid collection) and 21 x 11mm (cephalad fluid collection). Electronically Signed: Luis Manuel Brunson MD at 16:54 EDT Reading Location ID and State: [facility] / [place] , Service support ,
== END | disposition home or self-care (01) ==
PROVIDERS: Visit Provider Family Medicine Geriatric Medicine
DX: M46.46 Discitis, unspecified, lumbar region (principal)
CPT/HCPCS: 72158; A9575

== ENCOUNTER 2022-07-24 13:25 | Inpatient (IN) | payer MEDICARE, OTHER, SELFPAY ==
[2022-07-24] VITALS (20 sets, daily range): BP systolic 72–102; BP diastolic 45–76; PULSE 66–95; RESP 10–32; TEMP 35.8–37.2; O2SAT 95–100; BMI 25.2
--- NOTE | 2022-07-24 13:45 | ED.RN ---
This nurse was made aware of pts picc line. PICC line is barely sown in with thread. NO DRESSING present. HELLEN contreras Finley was attempted to be contacted after conversation with PT advocate. She is in a meeting and will call back. Nephew is aware of inappropriate care of PICC line and he also has a concern for wound on pts left side. Wound is covered with a dressing but his concern is if it is packed. We advised him that we would check it when the dr was in the room.
--- NOTE | 2022-07-24 13:49 | ED.RN ---
PT ARRIVES TO ED FROM [place]. PT PLACED ONTO BED FROM EMS COT. WHEN APPLYING HEART MONITOR PICC LINE TO RIGHT CHEST NOTED. PICC LINE DID NOT HAVE A DRESSING PRESENT. PICC LINE HANGING AGAINST CHEST, STICKING OUT APPROX 3 INCHES, ONLY ONE SUTURE INTACT HOLDING PICC LINE IN PLACE. NO CHLOROPREP CAPS ON END OF PICC HUBS.
[2022-07-24 13:50] LABS: Bedside Glucose 145 mg/dL (74-106)
--- NOTE | 2022-07-24 14:11 | EKG12_ITS ---
Test Reason : WEAKNESS Blood Pressure : / mmHG Vent. Rate : 081 BPM Atrial Rate : 081 BPM P-R Int : 162 ms QRS Dur : 082 ms QT Int : 366 ms P-R-T Axes : 038 039 051 degrees QTc Int : 425 ms Normal sinus rhythm Nonspecific T wave abnormality Abnormal ECG Confirmed by KATIE CHOWDHURY, KARINE ([id number]), editor sound BLAYNE TABOR ([id number]) on 07/26/2022 2:04:10 PM Referred By: EDGARDO Confirmed By:MICHELLE WILSON MD
--- NOTE | 2022-07-24 14:17 | EX.ED.DYSGE1 ---
HPI History of Present Illness Chief Complaint: Weakness Informant: family Narrative Narrative: Patient brought in from [place] nephews currently present who knows her history very well. She had a spinal abscess this past February she has had 4 surgeries since then the last time in April. She had a fusion. This is followed by Dr. Deluca at [facility]. She was on IV antibiotics up till the end of April with central line right chest wall. She is currently on oral antibiotics indefinitely per nephew. This was for coverage for her osteomyelitis. From [facility] she initially went to [facility], nephew had a brought down to [place] in [place] to be closer to him. She was doing well. However she has been nonambulatory. She was transferred up to [place] over the past 10 days per her request per her nephew to be closer to friends. She was made DNR CCA in April at [facility]. Nephew last spoke with her 10 days ago when he brought her up. He reports his mother visited the patient yesterday noted she was a little off. He came and checked on her today and noted she appeared more fatigued and tired and not herself therefore brought her here. He states with her DNR CCA status, there has been discussion the patient would not want future invasive surgeries. There are concerns of dehydration and kidney failure. Unclear of any cough. Patient brought in hypotensive in the 80s. No cardiac history. [facility] Medical History (Updated 07/24/22 @ 19:[address] Jesús Pulido DO) Chronic kidney disease (CKD) Debility DVT (deep venous thrombosis) Encephalopathy General weakness Kidney calculi Low back pain Osteomyelitis Spinal abscess UTI (urinary tract infection) Home Medications benzonatate 200 mg capsule 200 mg PO TID 07/24/22 [History Last Taken Unknown] bumetanide 1 mg tablet 1 mg PO TID 07/24/22 [History Last Taken Unknown] calcium carbonate 600 mg calcium (1,500 mg) tablet (Calcium) 600 mg PO BID 07/24/22 [History Last Taken Unknown] cefadroxil 500 mg capsule 1,000 mg PO BID 07/24/22 [History Last Taken Unknown] ipratropium 0.5 mg-albuterol 3 mg (2.5 mg base)/3 mL nebulization soln 3 ml inhalation Q6H PRN Shortness Of Breath 07/24/22 [History Last Taken Unknown] magnesium 200 mg tablet 200 mg PO BID 07/24/22 [History Last Taken Unknown] ondansetron 4 mg disintegrating tablet 4 mg PO Q12H PRN Nausea 07/24/22 [History Last Taken Unknown] potassium chloride 10 mEq capsule,extended release 10 meq PO BID 07/24/22 [History Last Taken Unknown] sodium chloride 0.9 % (flush) (Normal Saline Flush 0.9 % injection syringe) 10 ml IV Q12H 07/24/22 [History Last Taken Unknown] Allergy/AdvReac Type Severity Reaction Status Date / Time bee venom protein (honey bee) AdvReac Other Verified 07/24/22 16:14 Social History household members: none Smoking Status: Never smoker alcohol intake: never substance use type: does not use ROS ROS ED Constitutional Constitutional ED: Denies fever(s) Cardiovascular Cardiovascular: Denies none Respiratory/Chest Respiratory/Chest: Denies cough or wheezing Gastrointestinal Gastrointestinal: Denies diarrhea or vomiting Genitourinary Genitourinary ED: Denies change in urinary stream Musculoskeletal Musculoskeletal: Denies none Integumentary Denies rash or wounds Neurologic Neurologic: Denies none EXAM Physical Exam Const Vital Signs: 07/24/22 13:28 07/24/22 13:31 07/24/22 13:31 Temperature 97.1 F L 97.1 F L 97.1 F L Temperature Source Temporal Temporal Temporal Pulse Rate 90 95 94 Respiratory Rate 19 H 14 24 H Blood Pressure 82/58 L 82/58 L 82/58 L Blood Pressure Mean 66 66 66 Pulse Ox 99 100 99 Oxygen Delivery Method Room Air Room Air Room Air Oxygen Flow Rate (L/min) 07/24/22 16:11 07/24/22 16:42 07/24/22 14:47 Temperature 97.6 F L 98.9 F Temperature Source Axillary Temporal Pulse Rate 82 80 66 Respiratory Rate 20 H 20 H 10 L Blood Pressure 72/61 L 94/61 81/62 L Blood Pressure Mean 64 72 68 Pulse Ox 97 98 96 Oxygen Delivery Method Nasal Cannula Room Air Oxygen Flow Rate (L/min) 3 07/24/22 15:09 07/24/22 15:10 07/24/22 15:10 Temperature 98.6 F 98.2 F Temperature Source Temporal Temporal Pulse Rate 86 Respiratory Rate 19 H Blood Pressure 83/45 L Blood Pressure Mean 57 Pulse Ox 98 97 Oxygen Delivery Method Nasal Cannula Nasal Cannula Oxygen Flow Rate (L/min) 2 2 07/24/22 15:31 07/24/22 17:00 07/24/22 17:00 Temperature 96.4 F L 96.6 F L 96.6 F L Temperature Source Temporal Temporal Temporal Pulse Rate 81 76 77 Respiratory Rate 32 H 17 17 Blood Pressure 73/60 L 102/56 L 102/56 L Blood Pressure Mean 64 71 71 Pulse Ox 95 100 100 Oxygen Delivery Method Nasal Cannula Nasal Cannula Nasal Cannula Oxygen Flow Rate (L/min) 3 3 3 07/24/22 17:00 Temperature 96.6 F L Temperature Source Temporal Pulse Rate Respiratory Rate Blood Pressure Blood Pressure Mean Pulse Ox Oxygen Delivery Method Oxygen Flow Rate (L/min) Constitutional Narrative: Somnolent and fatigued awaking and answers questions ANO x3. HEENT HEENT Narrative: Blue residue substance around the lips and teeth. Moist mucosal membranes. normocephalic and atraumatic Eyes PERRL, EOMs intact bilaterally and conjunctivae normal General Eye ED: Yes normal appearance of both eyes Neck no lymphadenopathy and supple General: Negative for tenderness Chest Wall Chest Narrative: Right upper chest wall PICC line no dressing, no erythema, no induration, no drainage. Chest: Negative for tenderness Resp normal respiratory effort and normal air movement Effort and Inspection: symmetric chest movement; Negative for respiratory distress Cardio regular rate, regular rhythm and no murmurs Peripheral Pulses: pulses 2+ throughout GI normal to inspection, nondistended, normoactive bowel sounds and non-tender Palpation: Negative for guarding or rebound tenderness present Back/Spine no CVA tenderness and no thoracic nor lumbar tenderness Back/Spine Narrative: Large midline scar lumbar region healed, clean, dry, intact. Left flank, dressing removed, 1.5 cm oval wound with packed dressing there is drainage on the dressing, there is no active drainage from the wound. No exudates. Extremity normal to inspection General Extremety ED: Negative for edema or tenderness General Extremity: Negative for edema Neuro oriented x3 and no sensory deficits noted Neuro Narrative: Somnolent, will awaken with command. Skin no rashes or lesions noted and no wounds MDM MDM MDM Narrative Medical decision making narrative: Patient hypotensive on arrival. IV fluids started. She is afebrile. Sepsis labs were ordered. Obtain culture from her wound on her left flank. Multiple potential sources including the PICC line in her right chest wall. Chest x-ray 1 view reviewed by myself and read by radiology possible right lower lobe infiltrate. Per nephew chronic cough for years. She is not hypoxic. White count returned at 34.8 thousand. Kenney catheter was placed due to hypotension, and leukocytes 5-10 WBCs and 1+ bacteria. Culture sent. She is broadly covered with Zosyn and vancomycin. Hemoglobin 9.4 stable from previous. Creatinine up at 3.03 up from 1 0.24 previously. Potassium 5.3. EKG sinus rhythm with no hyperkalemia changes. Lactic acid returned at 1.3. Noncontrast CT obtained due to her ARTI of her flank due to the local wound. No acute findings, Kenney noted to be in the wrong position, this was replaced by nursing with a UA being sent. Blood pressure improved with IV fluids. Patient is a DNR CCA. Nephew reported okay with meds pressors and fluids. Has reported that she would not want any future surgeries. Therefore I did discuss with hospitalist Dr. Grace for admission. With her improving blood pressure she will be placed in the PCU. Patient meets severe sepsis criteria with an organ injury findings. Lab Data Labs: Laboratory Results - last 24 hr 07/24/22 07/24/22 07/24/22 13:31 14:03 14:03 WBC 34.8 H* RBC 2.85 L Hgb 9.4 L Hct 29.2 L MCV 102.5 H MCH 33.0 H MCHC 32.2 RDW Std Deviation 58.5 H RDW Coeff of Enedina 15.6 H Plt Count 151 MPV 12.2 H Immature Gran % (Auto) 1.600 H Neut % (Auto) 94.1 H Lymph % (Auto) 1.6 L Amador % (Auto) 2.4 Eos % (Auto) 0.1 Baso % (Auto) 0.2 Absolute Neuts (auto) 32.8 H Absolute Lymphs (auto) 0.57 L Nucleated RBC % 0 Differential Comment SCANNED Diff Path Review May foll Hypochromasia 2+ Macrocytosis 2+ PT 15.0 H INR 1.2 APTT 30.2 Sodium Potassium Chloride Carbon Dioxide Anion Gap BUN Creatinine Estim Creat Clear Calc Est GFR (MDRD) Af Amer Est GFR (MDRD) Non-Af BUN/Creatinine Ratio Glucose Lactic Acid Calcium Phosphorus Magnesium Total Bilirubin AST ALT Alkaline Phosphatase Total Protein Albumin Globulin Albumin/Globulin Ratio Urine Color Urine Clarity Urine pH Ur Specific [place] Urine Protein Urine Glucose (UA) Urine Ketones Urine Occult Blood Urine Nitrite Urine Bilirubin Urine Urobilinogen Ur Leukocyte Esterase Urine RBC Urine WBC Ur Squamous Epith Cells Urine Bacteria Hyaline Casts Urine Mucus POC Glucose 145 H 07/24/22 07/24/22 07/24/22 14:03 14:03 14:03 WBC RBC Hgb Hct MCV MCH MCHC RDW Std Deviation RDW Coeff of Enedina Plt Count MPV Immature Gran % (Auto) Neut % (Auto) Lymph % (Auto) Amador % (Auto) Eos % (Auto) Baso % (Auto) Absolute Neuts (auto) Absolute Lymphs (auto) Nucleated RBC % Differential Comment Diff Path Review Hypochromasia Macrocytosis PT INR APTT Sodium 134 L Potassium 5.3 H Chloride 99 Carbon Dioxide 26.0 Anion Gap 9 BUN 57 H Creatinine 3.03 H Estim Creat Clear Calc 12.57 Est GFR (MDRD) Af Amer 19 L Est GFR (MDRD) Non-Af 16 L BUN/Creatinine Ratio 18.8 Glucose 125 H Lactic Acid Cancelled Calcium 8.3 L Phosphorus 3.4 Magnesium 2.7 H Total Bilirubin 0.50 AST 16 ALT 12 L Alkaline Phosphatase 187 H Total Protein 4.8 L Albumin 1.4 L Globulin 3.4 Albumin/Globulin Ratio 0.4 L Urine Color Urine Clarity Urine pH Ur Specific [place] Urine Protein Urine Glucose (UA) Urine Ketones Urine Occult Blood Urine Nitrite Urine Bilirubin Urine Urobilinogen Ur Leukocyte Esterase Urine RBC Urine WBC Ur Squamous Epith Cells Urine Bacteria Hyaline Casts Urine Mucus POC Glucose 07/24/22 07/24/22 15:07 16:05 WBC RBC Hgb Hct MCV MCH MCHC RDW Std Deviation RDW Coeff of Enedina Plt Count MPV Immature Gran % (Auto) Neut % (Auto) Lymph % (Auto) Amador % (Auto) Eos % (Auto) Baso % (Auto) Absolute Neuts (auto) Absolute Lymphs (auto) Nucleated RBC % Differential Comment Diff Path Review Hypochromasia Macrocytosis PT INR APTT Sodium Potassium Chloride Carbon Dioxide Anion Gap BUN Creatinine Estim Creat Clear Calc Est GFR (MDRD) Af Amer Est GFR (MDRD) Non-Af BUN/Creatinine Ratio Glucose Lactic Acid 1.3 Calcium Phosphorus Magnesium Total Bilirubin AST ALT Alkaline Phosphatase Total Protein Albumin Globulin Albumin/Globulin Ratio Urine Color Yellow Urine Clarity Clear Urine pH 7.0 Ur Specific [place] 1.010 Urine Protein 15 H Urine Glucose (UA) Normal Urine Ketones Negative Urine Occult Blood 250 H Urine Nitrite Negative Urine Bilirubin Negative Urine Urobilinogen Normal Ur Leukocyte Esterase 25 H Urine RBC 50-100 SEEN Urine WBC 5-10 SEEN Ur Squamous Epith Cells 0-5 SEEN Urine Bacteria 1+ Hyaline Casts 10-25 SEEN Urine Mucus 0 SEEN POC Glucose Radiography Diagnostic Testing: Clinical Impression(s) from Imaging Studies Abdomen/Pelvis CT 07/24/22 14:24 IMPRESSION: Limited evaluation of the upper abdominal structures due to the dense metallic artifacts caused by the extensive back surgery. The tip of the KENNEY catheter is seen within the vagina extending into the cervix. Small left pleural effusion with bibasilar atelectasis and/or infiltrates worse on the left side. Electronically Signed: Samuel Gimenez MD at 15:42 EDT , Chest X-Ray 07/24/22 15:26 IMPRESSION: Findings suggestive for scarring at the right lung base with possible early infiltrate in the posterior segment of the left lower lobe. Electronically Signed: Samuel Gimenez MD at 15:38 EDT , Critical Care Time Critical Care Time: Yes Critical care time (excluding procedures): 30-74 minutes, Discussing w/Patient &/or Family/Pasting Machine Operator, Discussing w/Consultants, Arranging Admission or Transfer, Performing Direct Patient Care at Bedside and - (40 minutes) Discharge Plan Dx/Rx/DC Orders Clinical Impression: Severe sepsis, ARTI (acute kidney injury), Leukocytosis, Transient hypotension, Pneumonia, Acute UTI Disposition Disposition: Acute Care Hospital [facility] Discharge Date/Time: 07/24/22 17:39
--- NOTE | 2022-07-24 14:24 | CT_ITS ---
STUDY: CT ABDOMEN AND PELVIS WITHOUT CONTRAST REASON FOR EXAM: Female, 82 years old. Hypotension -- left flank wound, previous epidural abscess RADIATION DOSAGE (If Supplied By Facility): CTDIvol = ( 14.38 ) mGy, DLP = ( 650.86 ) mGycm TECHNIQUE: Transaxial images were obtained from the dome of the diaphragm to the symphysis pubis without oral contrast, and without intravenous contrast. Sagittal and coronal images were reconstructed. Individualized dose optimization techniques were used for this CT. COMPARISON: Comparison is made with prior study of 04/02/2022. FINDINGS: There is a small left pleural effusion with the bibasilar atelectasis and/or infiltrates worse on the left side. Coronary artery calcification. Normal liver. Findings suggesting small layering gallstones along the dependent portion of the gallbladder lumen. Normal spleen. Normal pancreas. Normal bilateral adrenal glands. Normal right kidney. Normal left kidney. Normal visualized stomach. Normal small intestine. There are multiple colonic diverticula consistent with diverticulosis. The appendix is visualized and appears normal. There is scattered atherosclerotic calcification of the abdominal aorta, without a demonstrated aneurysm. Normal inferior vena cava. Normal retroperitoneum. Normal urinary bladder. A KENNEY catheter is seen within the vagina. This reaches the cervix. Normal abdominal wall. Multilevel laminectomy and fusion of the lower dorsal and upper lumbar spine causing metallic artifacts and limiting the assessment of the upper and mid abdominal structures. CT/Abdomen/Pelvis without Cont IMPRESSION: Limited evaluation of the upper abdominal structures due to the dense metallic artifacts caused by the extensive back surgery. The tip of the KENNEY catheter is seen within the vagina extending into the cervix. Small left pleural effusion with bibasilar atelectasis and/or infiltrates worse on the left side. Electronically Signed: Samuel Gimenez MD at 15:42 EDT ,
[2022-07-24 14:25] LABS: Absolute Lymphocyte Count 0.57 X10^3/uL (0.83-4.51); Absolute Neutrophil Count 32.8 X10^3/uL (2.0-7.7); Basophil# 0.07 X10^3/uL; Basophil% 0.2 % (0-1); Eosinophil# 0.03 X10^3/uL; Eosinophils% 0.1 % (0-5); Hematocrit 29.2 % (37-47); Hemoglobin 9.4 g/dL (12.0-15.0); Lymphocyte # 0.57 X10^3/ul (0.83-4.51); Lymphocyte % 1.6 % (19-41); Mean Corp Hgb Conc 32.2 g/dL (32-36); Mean Corpuscular Volume 102.5 fL (81-99); Mean Platelet Vol. 12.2 fl (6.2-12.0); Monocyte# 0.84 X10^3/uL; Monocyte% 2.4 % (0-10); NRBC Flagged by Analyzer 0 % (0-5); Neutrophil # 32.77 X10^3/uL (2.7-7.7); Neutrophil % 94.1 % (47-70); POSITIVE COUNT YES; POSITIVE DIFFERENTIAL YES; Platelet Count 151 K/mm3 (150-450); RBC Distribution Width CV 15.6 % (11.6-14.6); RBC Distribution Width SD 58.5 fl (35.1-43.9); Red Blood Count 2.85 M/mm3 (4.2-5.4)
[2022-07-24 14:27] LABS: Differential Indicated SCAN CRITERIA MET; White Blood Count 34.8 K/mm3 (4.4-11.0)
[2022-07-24 14:30] LABS: International Normalized Ratio 1.2; Partial Thromboplast Time 30.2 Seconds (24.1-36.2)
--- NOTE | 2022-07-24 14:30 | CM.ED ---
SW Note JUAN CARLOS met with patient's nephew, Adalberto Lei. He reported that patient has been in the hospital frequently and was at a SNF in [place] 7 minutes from his home however per nephew patient was not getting good care. Per nephew patient has been at [place] for over a week. SW provided emotional support. SW remains available. Brianna GREWAL
[2022-07-24 14:33] LABS: ALB/GLOB Ratio 0.4 RATIO (0.9-2.4); AST(SGOT) 16 U/L (15-37); Alanine Aminotransfer ALT/SGPT 12 U/L (13-56); Albumin, Serum 1.4 g/dL (3.2-5.0); Alkaline Phosphatase 187 U/L (45-117); Anion Gap 9 (5-15); BUN 57 mg/dL (7-18); BUN/Creat Ratio 18.8 RATIO (10-20); Calcium,Total 8.3 mg/dL (8.5-10.1); Chloride 99 mmol/L (98-107); Creatinine, Serum 3.03 mg/dL (0.55-1.02); EST Glomerular Filtration Rate 16 mL/min (>60); Est Glom Filt Rate - Afr Amer 19 mL/min (>60); Estimated Creatinine Clearance 12.57 ml/min; Globulin 3.4 g/dL (2.2-4.2); Glucose 125 mg/dL (74-106); Potassium 5.3 mmol/L (3.5-5.1); Protein, Total 4.8 g/dL (6.4-8.2); Sodium Level 134 mmol/L (136-145)
[2022-07-24 14:42] LABS: Differential Comment SCANNED; Hypochromasia 2+; Macrocytosis 2+
[2022-07-24] MEDS: 0.9% Normal Saline 1,000 ML 999 ML IV ×2 (15:10→16:21)
--- NOTE | 2022-07-24 15:13 | ED.RN ---
BLOOD CULTURE OBTAINED FROM RIGHT CHEST PORT, SITE CLEANED THOROUGHLY AND DRESSING APPLIED. WHILE PLACING THE KENNEY, THE PT STARTED URINATING AND HAVING A LOOSE GREEN BM. WHILE CLEANING PT UP THERE SOME REDNESS AND A SMALL OPEN AREA TO THE PTS RIGHT CHEEK, ROUGHLY THE SIZE OF A PENCIL ERASURE. PHYSICIAN AWARE
--- NOTE | 2022-07-24 15:26 | RAD_ITS ---
STUDY: X-RAY CHEST REASON FOR EXAM: Female, 82 years old. Weakness TECHNIQUE: Single AP portable view of the chest. COMPARISON: Comparison is made with prior study dated 03/30/2022. FINDINGS: EKG electrodes are seen. A right-sided endovascular catheter is seen with the tip at the junction of the superior vena cava and right atrium. Mild increased markings at the right lung base suggestive of scarring. Findings suggestive of a infiltrate in the posteromedial segment of the left lower lobe. There is no demonstrated pleural abnormality. Normal size heart. Normal mediastinum and ja. Normal visualized pulmonary arteries. There is atherosclerotic tortuosity of the aortic arch and descending thoracic aorta. Prior fusion of the lower thoracic and upper lumbar spine. Healed right rib fractures. There is no demonstrated abnormality of the visualized soft tissue structures of the upper abdomen. RAD/Chest 1 View (Portable) IMPRESSION: Findings suggestive for scarring at the right lung base with possible early infiltrate in the posterior segment of the left lower lobe. Electronically Signed: Samuel Gimenez MD at 15:38 EDT ,
--- NOTE | 2022-07-24 15:30 | ED.RN ---
PER DR. REYNOSO, OK TO START ANTIBIOTICS EVEN THOUGH PT HAS NOT GIVEN URINE SPECIMEN.
[2022-07-24 15:41] LABS: Lactic Acid 1.3 mmol/L (0.4-1.9)
[2022-07-24 16:12] LABS: Mucous, Urine 0 SEEN /hpf (<or=2+)
[2022-07-24 16:15] LABS: Color, Urine Yellow (Yellow); Glucose, Dipstick Normal (Normal); Ketone-Dipstick Negative (Negative); Leukocyte Esterase-Dipstick 25 /ul (Negative); Nitrite-Dipstick Negative (Negative); Occult Blood-Urine 250 /ul (Negative); Protein-Dipstick 15 mg/dl (Negative); Urine Bilirubin Dipstick Negative (Negative); Urine Clarity Clear (Clear); Urine Urobilinogen Normal (Normal)
--- NOTE | 2022-07-24 16:23 | CM.ED ---
SW went to legal indicators and noted advanced directives and HCPOA on file. Brianna GREWAL
[2022-07-24 16:33] LABS: Red Blood Cells-Urine 50-100 SEEN /hpf (0-5); Squamous Epithelial Cells - UA 0-5 SEEN /hpf (5-10); White Blood Cells 5-10 SEEN /hpf (0-5)
[2022-07-24 16:34] LABS: Bacteria 1+ /hpf (None Seen); Hyaline Cast 10-25 SEEN /lpf (0-5)
--- NOTE | 2022-07-24 17:00 | ED.RN ---
THIS RN CALLED REPORT TO ICU AND TALKED TO DARIEL ALLAN AT 1700. PT TAKEN TO ICU.
--- NOTE | 2022-07-24 17:53 | PCM.HP.STD ---
Documented by User: ROBERTA Barrett 07/24/22 18:22 HPI - General General Date of Admission: 07/24/22 Date of Service: 07/24/22 Chief Complaint: Weakness, debility, altered mental status HPI Narrative MADHURI ANAYA, is a 82 F who presents with altered mental status and weakness. Patient's family states that she underwent back surgery in April for an abscess and since has been in multiple nursing facilities for skilled services. Patient sister went to visit her and noticed that she seemed a little off and was not acting herself. Patient's nephew at bedside states that he then decided to go see her and noted that she was very weak and lethargic. Patient had been on IV antibiotics until June 23 her for abscess and spine. Patient has a PICC line in the right chest which is patent and flushes well however upon transport from [facility] it was noted that patient did not have a dressing on her tunneled PICC line. Patient has a history of chronic pleural effusion and hypokalemia yeah. [facility] Medical History (Updated 07/24/22 @ 18:29 by Blanca Xiao) Chronic kidney disease (CKD) Debility DVT (deep venous thrombosis) Encephalopathy General weakness Kidney calculi Low back pain Osteomyelitis Spinal abscess UTI (urinary tract infection) Home Medications benzonatate 200 mg capsule 200 mg PO TID 07/24/22 [History Last Taken Unknown] bumetanide 1 mg tablet 1 mg PO TID 07/24/22 [History Last Taken Unknown] calcium carbonate 600 mg calcium (1,500 mg) tablet (Calcium) 600 mg PO BID 07/24/22 [History Last Taken Unknown] cefadroxil 500 mg capsule 1,000 mg PO BID 07/24/22 [History Last Taken Unknown] ipratropium 0.5 mg-albuterol 3 mg (2.5 mg base)/3 mL nebulization soln 3 ml inhalation Q6H PRN Shortness Of Breath 07/24/22 [History Last Taken Unknown] magnesium 200 mg tablet 200 mg PO BID 07/24/22 [History Last Taken Unknown] ondansetron 4 mg disintegrating tablet 4 mg PO Q12H PRN Nausea 07/24/22 [History Last Taken Unknown] potassium chloride 10 mEq capsule,extended release 10 meq PO BID 07/24/22 [History Last Taken Unknown] sodium chloride 0.9 % (flush) (Normal Saline Flush 0.9 % injection syringe) 10 ml IV Q12H 07/24/22 [History Last Taken Unknown] Allergy/AdvReac Type Severity Reaction Status Date / Time bee venom protein (honey bee) AdvReac Other Verified 07/24/22 16:14 Social History household members: none Smoking Status: Never smoker alcohol intake: never substance use type: does not use ROS Review of Systems ROS Unobtainable: due to mental status Vital Signs Vital Signs Vital Signs: 07/24/22 13:28 07/24/22 13:31 07/24/22 13:31 Temperature 97.1 F L 97.1 F L 97.1 F L Temperature Source Temporal Temporal Temporal Pulse Rate 90 95 94 Respiratory Rate 19 H 14 24 H Blood Pressure 82/58 L 82/58 L 82/58 L Blood Pressure Mean 66 66 66 Pulse Ox 99 100 99 Oxygen Delivery Method Room Air Room Air Room Air Oxygen Flow Rate (L/min) 07/24/22 16:11 07/24/22 16:42 07/24/22 14:47 Temperature 97.6 F L 98.9 F Temperature Source Axillary Temporal Pulse Rate 82 80 66 Respiratory Rate 20 H 20 H 10 L Blood Pressure 72/61 L 94/61 81/62 L Blood Pressure Mean 64 72 68 Pulse Ox 97 98 96 Oxygen Delivery Method Nasal Cannula Room Air Oxygen Flow Rate (L/min) 3 07/24/22 15:09 07/24/22 15:10 07/24/22 15:10 Temperature 98.6 F 98.2 F Temperature Source Temporal Temporal Pulse Rate 86 Respiratory Rate 19 H Blood Pressure 83/45 L Blood Pressure Mean 57 Pulse Ox 98 97 Oxygen Delivery Method Nasal Cannula Nasal Cannula Oxygen Flow Rate (L/min) 2 2 07/24/22 15:31 07/24/22 17:00 07/24/22 17:00 Temperature 96.4 F L 96.6 F L 96.6 F L Temperature Source Temporal Temporal Temporal Pulse Rate 81 76 77 Respiratory Rate 32 H 17 17 Blood Pressure 73/60 L 102/56 L 102/56 L Blood Pressure Mean 64 71 71 Pulse Ox 95 100 100 Oxygen Delivery Method Nasal Cannula Nasal Cannula Nasal Cannula Oxygen Flow Rate (L/min) 3 3 3 07/24/22 17:00 Temperature 96.6 F L Temperature Source Temporal Pulse Rate Respiratory Rate Blood Pressure Blood Pressure Mean Pulse Ox Oxygen Delivery Method Oxygen Flow Rate (L/min) Weight Weight: 147 lb 4.301 oz Body Mass Index (BMI) 25.2 Physical Exam Const Orientation / Consciousness: lethargic HEENT normocephalic, head/scalp atraumatic and moist oral mucous membranes Eyes conjunctivae normal and no scleral icterus Neck no lymphadenopathy and supple General: trachea midline Resp normal respiratory effort, normal air movement and clear to auscultation bilaterally Auscultation: diminished lung sounds Cardio regular rate, regular rhythm, S1 normal heart sound, S2 normal heart sound and peripheral pulses 2+ throughout GI normal to inspection, nondistended, normoactive bowel sounds, soft to palpation and non-tender Extremity normal capillary refill and no clubbing, cyanosis or edema Skin General Skin Exam: no breakdown Neuro Sensorium / Orientation: lethargic Motor Exam: general weakness Results Lab / Micro Data Result Diagrams: 07/24/22 14:03 07/24/22 14:03 Labs: Laboratory Results - last 24 hr 07/24/22 13:31: POC Glucose 145 H 07/24/22 14:03: WBC 34.8 H*, RBC 2.85 L, Hgb 9.4 L, Hct 29.2 L, MCV 102.5 H, MCH 33.0 H, MCHC 32.2, RDW Std Deviation 58.5 H, RDW Coeff of [place] 15.6 H, Plt Count 151, MPV 12.2 H, Immature Gran % (Auto) 1.600 H, Neut % (Auto) 94.1 H, Lymph % (Auto) 1.6 L, [place] % (Auto) 2.4, Eos % (Auto) 0.1, Baso % (Auto) 0.2, Absolute Neuts (auto) 32.8 H, Absolute Lymphs (auto) 0.57 L, Nucleated RBC % 0, Differential Comment SCANNED, Diff Path Review May foll, Hypochromasia 2+, Macrocytosis 2+ 07/24/22 14:03: PT 15.0 H, INR 1.2, APTT 30.2 07/24/22 14:03: Sodium 134 L, Potassium 5.3 H, Chloride 99, Carbon Dioxide 26.0, Anion Gap 9, BUN 57 H, Creatinine 3.03 H, Estim Creat Clear Calc 12.57, Est GFR (MDRD) Af Amer 19 L, Est GFR (MDRD) Non-Af 16 L, BUN/Creatinine Ratio 18.8, Glucose 125 H, Calcium 8.3 L, Total Bilirubin 0.50, AST 16, ALT 12 L, Alkaline Phosphatase 187 H, Total Protein 4.8 L, Albumin 1.4 L, Globulin 3.4, Albumin/Globulin Ratio 0.4 L 07/24/22 14:03: Lactic Acid Cancelled 07/24/22 15:07: Lactic Acid 1.3 07/24/22 16:05: Urine Color Yellow, Urine Clarity Clear, Urine pH 7.0, Ur Specific [place] 1.010, Urine Protein 15 H, Urine Glucose (UA) Normal, Urine Ketones Negative, Urine Occult Blood 250 H, Urine Nitrite Negative, Urine Bilirubin Negative, Urine Urobilinogen Normal, Ur Leukocyte Esterase 25 H, Urine RBC 50-100 SEEN, Urine WBC 5-10 SEEN, Ur Squamous Epith Cells 0-5 SEEN, Urine Bacteria 1+, Hyaline Casts 10-25 SEEN, Urine Mucus 0 SEEN Micro: Microbiology 07/24/22 14:18 Nasal Secretion SARS-CoV-2 Antigen (Rapid) - Final Radiology Impression Abdomen/Pelvis CT 07/24/22 14:24 IMPRESSION: Limited evaluation of the upper abdominal structures due to the dense metallic artifacts caused by the extensive back surgery. The tip of the KENNEY catheter is seen within the vagina extending into the cervix. Small left pleural effusion with bibasilar atelectasis and/or infiltrates worse on the left side. Electronically Signed: Samuel Gimenez MD at 15:42 EDT , Chest X-Ray 07/24/22 15:26 IMPRESSION: Findings suggestive for scarring at the right lung base with possible early infiltrate in the posterior segment of the left lower lobe. Electronically Signed: Samuel Gimenez MD at 15:38 EDT , Assessment & Plan Assessment/Plan (1) ARTI (acute kidney injury): (2) Severe sepsis: (3) Debility: PLAN: Plan 1. 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 -Consult sprinkler fitter helper, case discussed with Dr. Almeida -Consult infectious disease, case discussed with Dr. Mcdonnell -Continue Vanco and Zosyn, first dose given in ER -Patient received 2 L normal saline bolus in ER, will continue patient on 100 mL/h IV fluids -Patient has tunneled PICC to right chest, okay to use -CBC and CMP ordered for a.m. -Stat magnesium, phosphorus, strep pneumonia and Legionella urine, urine culture, blood culture -Oxygen per protocol, currently on 3 L nasal cannula oxygen -Repeat chest x-ray in a.m. -N.p.o. until patient is more awake 2. Debility and weakness -See #1 -PT and OT and ST to eval and treat -Patient's nephew requesting hospice consult, hospice consult ordered 3. ARTI with hyperkalemia -Creatinine 3.03, baseline 1.1-1.25 -IV fluids ordered 100 mL/h, received 2 L normal saline bolus in ER -Likely secondary to sepsis -CMP daily 4. Chronic anemia -Currently stable -CBC daily DVT prophylaxis-subcu Heparin This patient was seen by Barbara Goode, [facility] under the supervision of Dr. Grace. 32 minutes spent in clinical coordination of patient's plan of care. Documented by User: Dr. Asher Grace DO 07/24/22 19:17 HPI - General General Date of Admission: 07/24/22 [facility] Medical History (Updated 07/24/22 @ 18:29 by Blanca Xiao) Chronic kidney disease (CKD) Debility DVT (deep venous thrombosis) Encephalopathy General weakness Kidney calculi Low back pain Osteomyelitis Spinal abscess UTI (urinary tract infection) Home Medications benzonatate 200 mg capsule 200 mg PO TID 07/24/22 [History Last Taken Unknown] bumetanide 1 mg tablet 1 mg PO TID 07/24/22 [History Last Taken Unknown] calcium carbonate 600 mg calcium (1,500 mg) tablet (Calcium) 600 mg PO BID 07/24/22 [History Last Taken Unknown] cefadroxil 500 mg capsule 1,000 mg PO BID 07/24/22 [History Last Taken Unknown] ipratropium 0.5 mg-albuterol 3 mg (2.5 mg base)/3 mL nebulization soln 3 ml inhalation Q6H PRN Shortness Of Breath 07/24/22 [History Last Taken Unknown] magnesium 200 mg tablet 200 mg PO BID 07/24/22 [History Last Taken Unknown] ondansetron 4 mg disintegrating tablet 4 mg PO Q12H PRN Nausea 07/24/22 [History Last Taken Unknown] potassium chloride 10 mEq capsule,extended release 10 meq PO BID 07/24/22 [History Last Taken Unknown] sodium chloride 0.9 % (flush) (Normal Saline Flush 0.9 % injection syringe) 10 ml IV Q12H 07/24/22 [History Last Taken Unknown] Allergy/AdvReac Type Severity Reaction Status Date / Time bee venom protein (honey bee) AdvReac Other Verified 07/24/22 16:14 Social History household members: none Smoking Status: Never smoker alcohol intake: never substance use type: does not use Results Lab / Micro Data Result Diagrams: 07/24/22 14:03 07/24/22 14:03 Assessment & Plan Assessment/Plan (1) ARTI (acute kidney injury): (2) Severe sepsis: (3) Debility: Charges/Coding Addendum Addendum: Patient was seen and examined independently of Nakita Goode, she was brought to the emergency room today from a local [facility] care facility at which she is undergoing rehab services due to lethargy and overall weakness. Patient's nephew is here and he provides some of the medical information. Patient has long history of failed back surgeries-she has had 4 surgeries this year, she has also had a history of osteomyelitis of the lumbar spine, she was on IV antibiotics for a long period of time for this and is currently on oral antibiotics. Patient also has a history of discitis of the lumbar spine. According to the patient's nephew, patient has stated that she wants no more back surgeries done at this time. Work-up in the emergency room included labs which showed an elevated white blood cell count at 34.8, hemoglobin was 9.4, chemistry profile showed an elevated creatinine at 3.03, BUN was 57. Patient's chest x-ray showed bilateral lower lobe infiltrates suggestive of pneumonia or atelectasis, since urinalysis showed 50-100 RBCs, 5-10 WBCs, and +1 bacteria. On examination she appeared frail and unwell, she is able to answer simple questions appropriately but does not carry on a conversation readily, she does not appear to be in any distress. Vital signs as documented. Skin warm and dry and without overt rashes. Patient has an open area over her left mid back area at the axillary line that is approximately 2 to 3 cm in length and is draining some yellow discharge, there is a tunneled central venous catheter located over the patient's right upper chest area-the area is nonreddened and is not tender to palpation. Neck without JVD, thyroid appears normal, trachea is midline, neck is supple. Lungs clear, normal air movement was noted. Heart exam notable for regular rhythm, normal sounds and absence of murmurs, rubs or gallops. Abdomen unremarkable and without evidence of organomegaly, masses, or abdominal aortic enlargement, bowel sounds are present in all 4 quadrants, no abdominal tenderness was noted. Extremities nonedematous, no cyanosis was noted, no clubbing was noted. Neuro: Cranial nerves II through XII are grossly intact, no focal motor deficits were noted, sensation to light touch and pinprick is intact, motor exam 5/5 throughout. Psych: Patient responds appropriately to simple questions, she is lethargic, she does not appear to be in any distress Impression: #1 acute sepsis-etiology unclear at this point, possibly secondary to pneumonia, urinary tract infection, surgical site infection over her back, or central line infection patient will be admitted to ICU due to hypotension, nephew is acting as her POA, he states that the patient would not want to be intubated or resuscitated but that she would be okay with using pressors if needed. At this time, patient's blood pressure is in the 90s systolic and she does not require Levophed at this time. Patient will be maintained on vancomycin and Zosyn, she will be seen in consultation by infectious diseases and critical care medicine. Blood cultures were obtained, urine culture was obtained. At this time, patient's tunneled central line will not be removed. I talked briefly with infectious diseases (Dr. Mcdonnell) about her care by phone today. #2 acute kidney injury-patient's creatinine is elevated, she will be given IV fluids and labs will be monitored #3 osteomyelitis of the lumbar spine-patient's nephew states that the patient was told she needs to take maintenance Keflex on a daily basis. 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 Total clinical time spent by myself addressing the patient's medical issues, reviewing her data, and collaborating with patient's care team: 46 minutes Visit Charges Inpatient E&M: 96792 Init Hosp L3
[2022-07-24] MEDS: 0.9% Normal Saline 1,000 ML 100 ML IV (18:49)
[2022-07-24 18:54] LABS: Magnesium 2.7 mg/dL (1.6-2.6); Phosphorus 3.4 mg/dL (2.5-4.9)
--- NOTE | 2022-07-24 19:30 | PCM.RX.CS ---
Consult Pharmacy has been consulted to manage selected antiobiotic: Vancomycin Type of Consult: New start Suspected Infection: Sepsis Labs: Sodium 134 mmol/L (136-145) L 07/24/22 14:03 Potassium 5.3 mmol/L (3.5-5.1) H 07/24/22 14:03 Chloride 99 mmol/L (98-107) 07/24/22 14:03 Carbon Dioxide 26.0 mmol/L (21.0-32.0) 07/24/22 14:03 Anion Gap 9 (5-15) 07/24/22 14:03 BUN 57 mg/dL (7-18) H 07/24/22 14:03 Creatinine 3.03 mg/dL (0.55-1.02) H 07/24/22 14:03 Est GFR (MDRD) Af Amer 19 mL/min (>60) L 07/24/22 14:03 Est GFR (MDRD) Non-Af 16 mL/min (>60) L 07/24/22 14:03 BUN/Creatinine Ratio 18.8 RATIO (10-20) 07/24/22 14:03 Glucose 125 mg/dL (74-106) H 07/24/22 14:03 Microbiology: Microbiology 07/24/22 18:21 Urine Catheter - Catheter Legionella Antigen - Final 07/24/22 18:21 Urine Catheter - Catheter Streptococcus pneumoniae Antigen (M - Final 07/24/22 14:18 Nasal Secretion SARS-CoV-2 Antigen (Rapid) - Final Goal Trough: 15-20 mcg/mL Pharmacy Plan for Drug Dosing: NEW START IV VANCOMYCIN Consulting Physician: Claritza Goode NP Indication: Sepsis Goal Trough: 15-20 SrCr: 3.03 (NOTE: Baseline ~1.1-1.25) CrCl: 12 mL/min Comments: Patient had initial dose of vancomycin 1750mg IV x1 in ED 07/24/22 @1637 Vancomycin Dose: Patient currently with impaired renal function, likely related to sepsis. Will not put patient on a scheduled vancomycin regimen at this time for this reason. Will plan to dose based on random levels until SCr improves/stabilizes. Pending Level: *RANDOM* level 07/26/22 with AM labs per protocol Pharmacy Service will continue to monitor and adjust dosing as required.
[2022-07-24] MEDS: Heparin Injection (Vial) 5,000 UNIT/ML VIAL 5000 UNIT SC (21:41)
[2022-07-25] VITALS (44 sets, daily range): BP systolic 64–123; BP diastolic 39–74; PULSE 66–90; RESP 12–25; TEMP 36.6–37.3; O2SAT 95–100
[2022-07-25] MEDS: 0.9% Normal Saline 1,000 ML 100 ML IV ×2 (04:48→14:53)
[2022-07-25] MEDS: 0.9% Saline Lock 10 ML Syringe IV (04:53)
[2022-07-25 05:01] LABS: Absolute Lymphocyte Count 1.11 X10^3/uL (0.83-4.51); Absolute Neutrophil Count 25.9 X10^3/uL (2.0-7.7); Basophil# 0.04 X10^3/uL; Basophil% 0.1 % (0-1); Eosinophil# 0.02 X10^3/uL; Eosinophils% 0.1 % (0-5); Hematocrit 27.3 % (37-47); Hemoglobin 8.8 g/dL (12.0-15.0); Lymphocyte # 1.11 X10^3/ul (0.83-4.51); Lymphocyte % 3.9 % (19-41); Mean Corp Hgb Conc 32.2 g/dL (32-36); Mean Corpuscular Hgb 33.5 pg (27.0-32.0); Mean Corpuscular Volume 103.8 fL (81-99); Monocyte# 0.97 X10^3/uL; Monocyte% 3.4 % (0-10); NRBC Flagged by Analyzer 0 % (0-5); Neutrophil # 25.93 X10^3/uL (2.7-7.7); Neutrophil % 91.5 % (47-70); POSITIVE DIFFERENTIAL YES; Platelet Count 176 K/mm3 (150-450); RBC Distribution Width CV 15.6 % (11.6-14.6); RBC Distribution Width SD 58.4 fl (35.1-43.9); Red Blood Count 2.63 M/mm3 (4.2-5.4); White Blood Count 28.4 K/mm3 (4.4-11.0)
[2022-07-25 05:04] LABS: Differential Indicated SCAN CRITERIA MET
[2022-07-25 05:20] LABS: Differential Comment SCANNED
[2022-07-25 05:25] LABS: ALB/GLOB Ratio 0.4 RATIO (0.9-2.4); AST(SGOT) 19 U/L (15-37); Alanine Aminotransfer ALT/SGPT 11 U/L (13-56); Albumin, Serum 1.3 g/dL (3.2-5.0); Alkaline Phosphatase 162 U/L (45-117); Anion Gap 10 (5-15); BUN 48 mg/dL (7-18); Calcium,Total 7.2 mg/dL (8.5-10.1); Chloride 109 mmol/L (98-107); EST Glomerular Filtration Rate 21 mL/min (>60); Est Glom Filt Rate - Afr Amer 25 mL/min (>60); Estimated Creatinine Clearance 15.21 ml/min; Globulin 3.2 g/dL (2.2-4.2); Glucose 115 mg/dL (74-106); Potassium 4.1 mmol/L (3.5-5.1); Protein, Total 4.5 g/dL (6.4-8.2); Sodium Level 141 mmol/L (136-145)
--- NOTE | 2022-07-25 05:55 | RAD_ITS ---
STUDY: X-RAY CHEST REASON FOR EXAM: Female, 82 years old. Sepsis. TECHNIQUE: Single AP portable view of the chest. COMPARISON: Comparison is made with prior study dated 07/24/2022. FINDINGS: EKG leads are seen. A right-sided central venous catheter is seen with the tip at the junction of the superior vena cava and right atrium. New focal area of increased markings in the left upper lobe. Findings suggest more focal infiltrate in the posterior medial segment of the left lower lobe. There is no demonstrated pleural abnormality. Normal size heart. Normal mediastinum and ja. Normal visualized pulmonary arteries. There is atherosclerotic tortuosity of the aortic arch and descending thoracic aorta. There are diffuse degenerative changes of the visualized thoracic spine. Healed right-sided rib fractures. There is no demonstrated abnormality of the visualized soft tissue structures of the upper abdomen. RAD/Chest 1 View (Portable) IMPRESSION: New infiltrate in the left upper lobe. Stable infiltrate in the posterior medial segment of the left lower lobe. Electronically Signed: Samuel Gimenez MD at 8:47 EDT ,
--- NOTE | 2022-07-25 06:38 | CON.PCM.CC_ITS ---
Assessment & Plan Assessment/Plan (1) Septic shock: (2) ARTI (acute kidney injury): PLAN: Plan RECOMMENDATIONS: 1. Continue with broad-spectrum antibiotics pending culture results 2. Wean Levophed as possible 3. Wound nurse to evaluate left chest 4. Possible fluid bolus intermittently if necessary 5. Await nephew's decision on hospice 6. Pain control as necessary IMPRESSIONS: 1. Gram-negative septic shock Source is unclear. Patient has had multiple episodes of infection in the past. Urinalysis appears to be somewhat suspect, but may be a result of bacteremia. Patient does have the left chest wound as a possible source. Patient does have a central line, but this appears to be benign at the skin. Patient is on appropriate antibiotics at this time. Wean pressors as tolerated. Could attempt fluid boluses intermittently given patient is on room air, but this could complicate clinical picture. Nephew is to speak with hospice in the near future. Await discussions. Understand patient does not want any invasive procedures in the interim. 2. Acute kidney injury with hyperkalemia secondary to septic shock Clinical suspicion for ATN secondary to sepsis. Patient presented with a creatinine of 3 with a baseline of approximately 1.2. Patient did receive fluid resuscitation initially and is currently on pressors. There has been some improvement. No indication for renal replacement therapy at this time. We will continue to monitor closely. Likely not necessary to involve nephrology at this time. 3. Anemia of chronic disease/debility/weakness/recurrent infections Complicates care, management, recovery and prognosis. PT and OT have been consulted. Unclear rehab potential given comorbidities. Hemoglobin appears to be stable at this time. No indication for transfusions. TIME: 32 minutes of critical care time spent addressing patient's septic shock, acute kidney injury, debility, review of all data and collaboration with care team HPI Consult Data Date of Consult: 07/25/22 HPI Narrative Reason for Consultation: Septic shock HPI Narrative: MADHURI ANAYA is an 82 F, with past medical history listed below, who presents to [facility] on 07/24/2022 secondary to worsening confusion. Patient recently was treated at [facility] (formerly [facility]3] secondary to a paraspinal abscess. Patient had been on IV antibiotics until the end of April through a tunneled central line with plans of being on oral antibiotics indefinitely. Patient was staying at a local detention to be closer to friends. Patient has had a complex past medical history including stay at an LTAC. Patient reportedly had appeared more fatigued and tired and was brought to the emergency room for further evaluation. Patient's decision-maker is her nephew and patient reportedly has a history of confusion. Patient reportedly has stated in the past that she does not want any further surgeries, but there was concern about possible dehydration and kidney failure that was thought to be readily reversible. In the ER, patient was afebrile, but hypotensive at 82/58. Patient saturating well on room air, but was eventually placed on 2 L nasal cannula. Laboratory work-up showed a white blood cell count of 34.8, hemoglobin of 9.4 and platelets of 158. Coagulation studies were within normal limits. Chemistries showed a potassium of 5.3, BUN of 57 and creatinine of 3. Glucose was slightly elevated at 125, but LFTs were unremarkable. Lactate was 1.3 and UA was suggestive of possible infection. A CT of the abdomen and pelvis showed a small left pleural effusion with bibasilar atelectasis. Further evaluation was limited secondary to artifact from spinal fixation devices. Patient was given vancomycin and Zosyn along with fluid boluses. Patient subsequently required pressors and was admitted to the intensive care unit for further evaluation. Patient is not able to provide any additional information at this time. Overnight, patient has remained of Levophed at 10. Patient's respiratory status has remained stable. Patient has not had any significant ectopy noted. Patient was hypothermic initially, but has responded to environmental actions alone. Patient does have spontaneous movement of all extremities. Nursing is noted a large wound on her left chest/abdomen with exudate. Patient is subsequently came back with gram-negative bacteria on blood cultures within 6 hours. [facility] Medical History Chronic kidney disease (CKD) Debility DVT (deep venous thrombosis) Encephalopathy General weakness Kidney calculi Low back pain Osteomyelitis Spinal abscess UTI (urinary tract infection) Home Medications benzonatate 200 mg capsule 200 mg PO TID 07/24/22 [History Last Taken Unknown] bumetanide 1 mg tablet 1 mg PO TID 07/24/22 [History Last Taken Unknown] calcium carbonate 600 mg calcium (1,500 mg) tablet (Calcium) 600 mg PO BID 07/24/22 [History Last Taken Unknown] cefadroxil 500 mg capsule 1,000 mg PO BID 07/24/22 [History Last Taken Unknown] ipratropium 0.5 mg-albuterol 3 mg (2.5 mg base)/3 mL nebulization soln 3 ml inhalation Q6H PRN Shortness Of Breath 07/24/22 [History Last Taken Unknown] magnesium 200 mg tablet 200 mg PO BID 07/24/22 [History Last Taken Unknown] ondansetron 4 mg disintegrating tablet 4 mg PO Q12H PRN Nausea 07/24/22 [History Last Taken Unknown] potassium chloride 10 mEq capsule,extended release 10 meq PO BID 07/24/22 [History Last Taken Unknown] sodium chloride 0.9 % (flush) (Normal Saline Flush 0.9 % injection syringe) 10 ml IV Q12H 07/24/22 [History Last Taken Unknown] Allergy/AdvReac Type Severity Reaction Status Date / Time bee venom protein (honey bee) AdvReac Other Verified 07/24/22 16:14 Social History household members: none Smoking Status: Never smoker alcohol intake: never substance use type: does not use ROS Review of Systems ROS Unobtainable: due to mental status Physical Exam Const Constitutional Narrative: RASS -2. General Appearance: frail Orientation / Consciousness: lethargic HEENT normocephalic, head/scalp atraumatic and moist oral mucous membranes Eyes conjunctivae normal and no scleral icterus Neck no lymphadenopathy and supple General: trachea midline Chest Chest Narrative: Central line in right chest is clean, dry and intact. Resp normal respiratory effort and normal air movement Resp Narrative: Nonlabored shallow breathing Auscultation: diminished lung sounds; Negative for rales, rhonchi or wheezes Cardio regular rate, regular rhythm, S1 normal heart sound, S2 normal heart sound, no murmurs, no rub, no gallops and peripheral pulses 2+ throughout GI normal to inspection, nondistended, normoactive bowel sounds, soft to palpation and non-tender Extremity normal capillary refill and no clubbing, cyanosis or edema Skin Wound Narrative: Large wound in the left chest. Dressing is clean, dry and intact. Neuro Sensorium / Orientation: lethargic Motor Exam: general weakness Psych Mood & Affect: flat affect Lab / Micro Data Attestation: I reviewed the patient's lab results. Result Diagrams: 07/25/22 04:55 07/25/22 04:55 Labs: Laboratory Results - last 24 hr 07/24/22 13:31: POC Glucose 145 H 07/24/22 14:03: WBC 34.8 H*, RBC 2.85 L, Hgb 9.4 L, Hct 29.2 L, MCV 102.5 H, MCH 33.0 H, MCHC 32.2, RDW Std Deviation 58.5 H, RDW Coeff of [place]ed[place] 15.6 H, Plt Count 151, MPV 12.2 H, Immature Gran % (Auto) 1.600 H, Neut % (Auto) 94.1 H, Lymph % (Auto) 1.6 L, [place] % (Auto) 2.4, Eos % (Auto) 0.1, Baso % (Auto) 0.2, Absolute Neuts (auto) 32.8 H, Absolute Lymphs (auto) 0.57 L, Nucleated RBC % 0, Differential Comment SCANNED, Diff Path Review May foll, Hypochromasia 2+, Macrocytosis 2+ 07/24/22 14:03: PT 15.0 H, INR 1.2, APTT 30.2 07/24/22 14:03: Sodium 134 L, Potassium 5.3 H, Chloride 99, Carbon Dioxide 26.0, Anion Gap 9, BUN 57 H, Creatinine 3.03 H, Estim Creat Clear Calc 12.57, Est GFR (MDRD) Af Amer 19 L, Est GFR (MDRD) Non-Af 16 L, BUN/Creatinine Ratio 18.8, Glucose 125 H, Calcium 8.3 L, Total Bilirubin 0.50, AST 16, ALT 12 L, Alkaline Phosphatase 187 H, Total Protein 4.8 L, Albumin 1.4 L, Globulin 3.4, Albumin/Globulin Ratio 0.4 L 07/24/22 14:03: Lactic Acid Cancelled 07/24/22 14:03: Phosphorus 3.4, Magnesium 2.7 H 07/24/22 15:07: Lactic Acid 1.3 07/24/22 16:05: Urine Color Yellow, Urine Clarity Clear, Urine pH 7.0, Ur Specific [place] 1.010, Urine Protein 15 H, Urine Glucose (UA) Normal, Urine Ketones Negative, Urine Occult Blood 250 H, Urine Nitrite Negative, Urine Bilirubin Negative, Urine Urobilinogen Normal, Ur Leukocyte Esterase 25 H, Urine RBC 50-100 SEEN, Urine WBC 5-10 SEEN, Ur Squamous Epith Cells 0-5 SEEN, Urine Bacteria 1+, Hyaline Casts 10-25 SEEN, Urine Mucus 0 SEEN 07/25/22 04:55: WBC 28.4 H, RBC 2.63 L, Hgb 8.8 L, Hct 27.3 L, MCV 103.8 H, MCH 33.5 H, MCHC 32.2, RDW Std Deviation 58.4 H, RDW Coeff of [place]ed[place] 15.6 H, Plt Count 176, MPV 12.0, Immature Gran % (Auto) 1.000 H, Neut % (Auto) 91.5 H, Lymph % (Auto) 3.9 L, [place] % (Auto) 3.4, Eos % (Auto) 0.1, Baso % (Auto) 0.1, Absolute Neuts (auto) 25.9 H, Absolute Lymphs (auto) 1.11, Nucleated RBC % 0, Differential Comment SCANNED 07/25/22 04:55: Sodium 141, Potassium 4.1, Chloride 109 H, Carbon Dioxide 22.0, Anion Gap 10, BUN 48 H, Creatinine 2.40 H, Estim Creat Clear Calc 15.21, Est GFR (MDRD) Af Amer 25 L, Est GFR (MDRD) Non-Af 21 L, BUN/Creatinine Ratio 20.0, Glucose 115 H, Calcium 7.2 L, Total Bilirubin 0.50, AST 19, ALT 11 L, Alkaline Phosphatase 162 H, Total Protein 4.5 L, Albumin 1.3 L, Globulin 3.2, Albumin/Globulin Ratio 0.4 L Micro: Microbiology 07/24/22 14:40 Blood Culture (Wb) - Port Blood Culture - Preliminary 07/24/22 18:21 Urine Catheter - Catheter Legionella Antigen - Final 07/24/22 18:21 Urine Catheter - Catheter Streptococcus pneumoniae Antigen (M - Final 07/24/22 14:18 Nasal Secretion SARS-CoV-2 Antigen (Rapid) - Final Radiology Impression Abdomen/Pelvis CT 07/24/22 14:24 IMPRESSION: Limited evaluation of the upper abdominal structures due to the dense metallic artifacts caused by the extensive back surgery. The tip of the KENNEY catheter is seen within the vagina extending into the cervix. Small left pleural effusion with bibasilar atelectasis and/or infiltrates worse on the left side. Electronically Signed: Samuel Gimenez MD at 15:42 EDT , Chest X-Ray 07/24/22 15:26 IMPRESSION: Findings suggestive for scarring at the right lung base with possible early infiltrate in the posterior segment of the left lower lobe. Electronically Signed: Samuel Gimenez MD at 15:38 EDT , Charges/Coding Procedures Hospitalists Procedures: [id number] Critial Care 1st Hr
--- NOTE | 2022-07-25 07:50 | CASEMGMT ---
Patient has a Healthcare Power of Rag Willow Operator and a Healthcare Living Will on file at [facility]. Patient's nephew is her Healthcare Power of Rag Willow Operator. Stephanie MOYA
--- NOTE | 2022-07-25 08:39 | CASEMGMT ---
Patient is from [place]. SW will verify with patient and family that the plan is to return to [place]. Stephanie Bolaños MSW GRIFFIN
--- NOTE | 2022-07-25 09:38 | PN.HOSP_ITS ---
Subjective Subjective Follow-up on septic shock/debility/ARTI: Patient was seen and examined. Complains of feeling thirsty. Denies any w orsening pain. Patient is on Levophed now. 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 production control technologist Objective Data Objective Data Vital Signs: Vital Signs Temp Pulse Resp BP Pulse Ox O2 Del Method O2 Flow Rate 99.2 F H 77 15 117/73 97 Room Air 3 07/25/22 05:00 07/25/22 08:00 07/25/22 05:00 07/25/22 05:00 07/25/22 05:00 07/25/22 09:23 07/24/22 17:49 Oxygen Flow Rate (L/min) 3 Oxygen Delivery Method Room Air Weight: 65.8 kg Body Mass Index (BMI) 25.2 Intake & Output: Intake and Output for Last 24 Hours 07/23/22 07/24/22 07/25/22 23:59 23:59 23:59 Intake Total 2722 / 2722 1131.05 / 1131.05 Output Total 700 / 700 Balance 2722 / 2347 431.05 / 431.05 Lab / Micro Data Result Diagrams: 07/25/22 04:55 07/25/22 04:55 Labs: Laboratory Results - last 24 hr 07/24/22 13:31: POC Glucose 145 H 07/24/22 14:03: WBC 34.8 H*, RBC 2.85 L, Hgb 9.4 L, Hct 29.2 L, MCV 102.5 H, MCH 33.0 H, MCHC 32.2, RDW Std Deviation 58.5 H, RDW Coeff of Enedina 15.6 H, Plt Count 151, MPV 12.2 H, Immature Gran % (Auto) 1.600 H, Neut % (Auto) 94.1 H, Lymph % (Auto) 1.6 L, [place] % (Auto) 2.4, Eos % (Auto) 0.1, Baso % (Auto) 0.2, Absolute Neuts (auto) 32.8 H, Absolute Lymphs (auto) 0.57 L, Nucleated RBC % 0, Differ ential Comment SCANNED, Diff Path Review May foll, Hypochromasia 2+, Macrocytosis 2+ 07/24/22 14:03: PT 15.0 H, INR 1.2, APTT 30.2 07/24/22 14:03: Sodium 134 L, Potassium 5.3 H, Chloride 99, Carbon Dioxide 26.0, Anion Gap 9, BUN 57 H, Creatinine 3.03 H, Estim Creat Clear Calc 12.57, Est GFR (MDRD) Af Amer 19 L, Est GFR (MDRD) Non-Af 16 L, BUN/Creatinine Ratio 18.8, Glucose 125 H, Calcium 8.3 L, Total Bilirubin 0.50, AST 16, ALT 12 L, Alkaline Phosphatase 187 H, Total Protein 4.8 L, Albumin 1.4 L, Globulin 3.4, Albumin/Globulin Ratio 0.4 L 07/24/22 14:03: Lactic Acid Cancelled 07/24/22 14:03: Phosphorus 3.4, Magnesium 2.7 H 07/24/22 15:07: Lactic Acid 1.3 07/24/22 16:05: Urine Color Yellow, Urine Clarity Clear, Urine pH 7.0, Ur Specific [place] 1.010, Urine Protein 15 H, Urine Glucose (UA) Normal, Urine Ketones Negative, Urine Occult Blood 250 H, Urine Nitrite Negative, Urine Bilirubin Negative, Urine Urobilinogen Normal, Ur Leukocyte Esterase 25 H, Urine RBC 50-100 SEEN, Urine WBC 5-10 SEEN, Ur Squamous Epith Cells 0-5 SEEN, Urine B acteria 1+, Hyaline Casts 10-25 SEEN, Urine Mucus 0 SEEN 07/25/22 04:55: WBC 28.4 H, RBC 2.63 L, Hgb 8.8 L, Hct 27.3 L, MCV 103.8 H, MCH 33.5 H, MCHC 32.2, RDW Std Deviation 58.4 H, RDW Coeff of Enedina 15.6 H, Plt Count 176, MPV 12.0, Immature Gran % (Auto) 1.000 H, Neut % (Auto) 91.5 H, Lymph % (Auto) 3.9 L, [place] % (Auto) 3.4, Eos % (Auto) 0.1, Baso % (Auto) 0.1, Absolute Neuts (auto) 25.9 H, Absolute Lymphs (auto) 1.11, Nucleated RBC % 0, Differential Comment SCANNED 07/25/22 04:55: Sodium 141, Potassium 4.1, Chloride 109 H, Carbon Dioxide 22.0, Anion Gap 10, BUN 48 H, Creatinine 2.40 H, Estim Creat Clear Calc 15.21, Est GFR (MDRD) Af Amer 25 L, Est GFR (MDRD) Non-Af 21 L, BUN/Creatinine Ratio 20.0, Glucose 115 H, Calcium 7.2 L, Total Bilirubin 0.50, AST 19, ALT 11 L, Alkaline Phosphatase 162 H, Total Protein 4.5 L, Albumin 1.3 L, Globulin 3.2, Albumin/Globulin Ratio 0.4 L Micro: Microbiology 07/24/22 14:40 Blood Culture (Wb) - Port Blood Culture - Preliminary GNR lactose production control technologist 07/24/22 18:21 Urine Catheter - Catheter Legionella Antigen - Final 07/24/22 18:21 Urine Catheter - Catheter Streptococcus pneumoniae Antigen (M - Final 07/24/22 14:18 Nasal Secretion SARS-CoV-2 Antigen (Rapid) - Final Radiography Diagnostic Testing: Radiology Impression Abdomen/Pelvis CT 07/24/22 14:24 IMPRESSION: Limited evaluation of the upper abdominal structures due to the dense metallic artifacts caused by the extensive back surgery. The tip of the KENNEY catheter is seen within the vagina extending into the cervix. Small left pleural effusion with bibasilar atelectasis and/or infiltrates worse on the left side. Electronically Signed: Samuel Gimenez MD at 15:42 EDT , Chest X-Ray 07/24/22 15:26 IMPRESSION: Findings suggestive for scarring at the right lung base with possible early infiltrate in the posterior segment of the left lower lobe. Electronically Signed: Samuel Gimenez MD at 15:38 EDT , Chest X-Ray 07/25/22 05:55 IMPRESSION: New infiltrate in the left upper lobe. Stable infiltrate in the posterior medial segment of the left lower lobe. Electronically Signed: Samuel Gimenez MD at 8:47 EDT , Physical Exam Narrative Physical exam: General: Alert, Oriented, confused, cooperative, appears very frail, unwell, HEENT: Atraumatic Oral: Poor oral dentition and hygiene, dry oral mucosa Neck: Supple Lungs: Diminished to auscultation Cardiovascular: HS I+II, regular, no murmurs Abdomen: Bowel Sounds Present, Soft, Non Tender Extremities: No edema Skin: No rashes, No breakdown Neurological: Grossly intact Psych/Mental Status: Appropriate Assessment & Plan Assessment/Plan (1) Septic shock: PLAN: Plan 1. Septic shock/gram-negative bacteremia, patient with history of recurrent paraspinal abscesses, POA Patient with previous history of L1-L2 discitis/osteomyelitis/lumbar epidural/paraspinal abscesses?severe lumbar spinal stenosis Status post I&D on 04/03/2022 MRI of the lumbar spine on 04/24/2022 showed severe discitis and osteomyelitis at L1-L2 with severe canal stenosis, improved epidural abscesses, left paraspinal abscesses, right paraspinal abscess was larger. Subcutaneous fluid collection was also seen Patient was transferred to [facility] on 04/24/22. She has apparently had extensive back surgeries. Will obtain records from [facility] Continue on Levophed, Zosyn, vancomycin Follow-up on blood cultures ID and critical care consulted 2. Acute kidney injury on CKD stage 3, baseline creatinine is 1.2 Admitted with creatinine of 3.03, creatinine is 2.4, continue with IV fluid hydration and pressors Trend labs in a.m. 3. Hyperkalemia, resolved 4. Anemia, acute on chronic, likely anemia of chronic disease, will check iron stores 5. Acute metabolic encephalopathy secondary to #1 and 2 Waxes and wanes, continue to monitor 6. Debility, acute on chronic, PT and OT to evaluate and treat 7. DVT prophylaxis - Heparin SC CODE STATUS DNR CCA no intubation Charges/Coding Visit Charges Inpatient E&M: 71953 [facility] Hosp L3
[2022-07-25] MEDS: Heparin Injection (Vial) 5,000 UNIT/ML VIAL 5000 UNIT SC ×2 (09:54→22:45)
--- NOTE | 2022-07-25 10:00 | PCM.CONS.GEN ---
Assessment & Plan Assessment/Plan (1) Septic shock: (2) Bacteremia due to Gram-negative bacteria: PLAN: Unclear source. UA with only 5-10 wbc. CXR with some infiltrates. CT abd/pelvis did not show abscess but limited due to amount of hardware present. Has been on omnicef for past month for indefinite suppression s/p mssa bacteremia with epidural abscesses requiring multiple surgeries and hardware placement in 04/2022 at [facility]. Now with septic shock. Wbc improved, no fever here. Cont empiric vanc/zosyn for now. Line in place, unclear how long it's been there. 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 Had been on cefazolin prior to that point, reportedly kept on iv abx until 06/23/22 then changed to duricef. Remains at [facility], tunneled R chest line remains in place. Found to have confusion and lethargy yesterday, taken to ED, admitted on vanc/zosyn to icu with pressor. Pt feeling a little better this AM, denies pain, fever, n/v/d, cough/SOB, rash, or dysuria. No issues with R chest line. Full ROS performed and neg except as noted above. [facility] Medical History Chronic kidney disease (CKD) Debility DVT (deep venous thrombosis) Encephalopathy General weakness Kidney calculi Low back pain Osteomyelitis Spinal abscess UTI (urinary tract infection) Home Medications benzonatate 200 mg capsule 200 mg PO TID 07/24/22 [History Last Taken Unknown] bumetanide 1 mg tablet 1 mg PO TID 07/24/22 [History Last Taken Unknown] calcium carbonate 600 mg calcium (1,500 mg) tablet (Calcium) 600 mg PO BID 07/24/22 [History Last Taken Unknown] cefadroxil 500 mg capsule 1,000 mg PO BID 07/24/22 [History Last Taken Unknown] ipratropium 0.5 mg-albuterol 3 mg (2.5 mg base)/3 mL nebulization soln 3 ml inhalation Q6H PRN Shortness Of Breath 07/24/22 [History Last Taken Unknown] magnesium 200 mg tablet 200 mg PO BID 07/24/22 [History Last Taken Unknown] ondansetron 4 mg disintegrating tablet 4 mg PO Q12H PRN Nausea 07/24/22 [History Last Taken Unknown] potassium chloride 10 mEq capsule,extended release 10 meq PO BID 07/24/22 [History Last Taken Unknown] sodium chloride 0.9 % (flush) (Normal Saline Flush 0.9 % injection syringe) 10 ml IV Q12H 07/24/22 [History Last Taken Unknown] Allergy/AdvReac Type Severity Reaction Status Date / Time bee venom protein (honey bee) AdvReac Other Verified 07/24/22 16:14 Social History household members: none Smoking Status: Never smoker alcohol intake: never substance use type: does not use Physical Exam Const oriented x3 and no apparent distress General Appearance: lethargic HEENT normocephalic and head/scalp atraumatic Eyes PERRL and EOMs intact bilaterally Neck supple and No nodes Resp normal air movement and clear to auscultation bilaterally Cardio regular rate, regular rhythm and no murmurs GI soft to palpation, non-tender and non-distended Extremity General Extremity: edema Skin Skin Narrative: No rash. Some decub wounds. L lateral chest with deeper wound, but no purulence or erythema seen Neuro CN's II-XII intact bilaterally Lab / Micro Data Attestation: I reviewed the patient's lab results. Result Diagrams: 07/25/22 04:55 07/25/22 04:55 Labs: Laboratory Results - last 24 hr 07/24/22 13:31: POC Glucose 145 H 07/24/22 14:03: WBC 34.8 H*, RBC 2.85 L, Hgb 9.4 L, Hct 29.2 L, MCV 102.5 H, MCH 33.0 H, MCHC 32.2, RDW Std Deviation 58.5 H, RDW Coeff of Enedina 15.6 H, Plt Count 151, MPV 12.2 H, Immature Gran % (Auto) 1.600 H, Neut % (Auto) 94.1 H, Lymph % (Auto) 1.6 L, Band[place] % (Auto) 2.4, Eos % (Auto) 0.1, Baso % (Auto) 0.2, Absolute Neuts (auto) 32.8 H, Absolute Lymphs (auto) 0.57 L, Nucleated RBC % 0, Differential Comment SCANNED, Diff Path Review May foll, Hypochromasia 2+, Macrocytosis 2+ 07/24/22 14:03: PT 15.0 H, INR 1.2, APTT 30.2 07/24/22 14:03: Sodium 134 L, Potassium 5.3 H, Chloride 99, Carbon Dioxide 26.0, Anion Gap 9, BUN 57 H, Creatinine 3.03 H, Estim Creat Clear Calc 12.57, Est GFR (MDRD) Af Amer 19 L, Est GFR (MDRD) Non-Af 16 L, BUN/Creatinine Ratio 18.8, Glucose 125 H, Calcium 8.3 L, Total Bilirubin 0.50, AST 16, ALT 12 L, Alkaline Phosphatase 187 H, Total Protein 4.8 L, Albumin 1.4 L, Globulin 3.4, Albumin/Globulin Ratio 0.4 L 07/24/22 14:03: Lactic Acid Cancelled 07/24/22 14:03: Phosphorus 3.4, Magnesium 2.7 H 07/24/22 15:07: Lactic Acid 1.3 07/24/22 16:05: Urine Color Yellow, Urine Clarity Clear, Urine pH 7.0, Ur Specific [place] 1.010, Urine Protein 15 H, Urine Glucose (UA) Normal, Urine Ketones Negative, Urine Occult Blood 250 H, Urine Nitrite Negative, Urine Bilirubin Negative, Urine Urobilinogen Normal, Ur Leukocyte Esterase 25 H, Urine RBC 50-100 SEEN, Urine WBC 5-10 SEEN, Ur Squamous Epith Cells 0-5 SEEN, Urine Bacteria 1+, Hyaline Casts 10-25 SEEN, Urine Mucus 0 SEEN 07/25/22 04:55: WBC 28.4 H, RBC 2.63 L, Hgb 8.8 L, Hct 27.3 L, MCV 103.8 H, MCH 33.5 H, MCHC 32.2, RDW Std Deviation 58.4 H, RDW Coeff of Enedina 15.6 H, Plt Count 176, MPV 12.0, Immature Gran % (Auto) 1.000 H, Neut % (Auto) 91.5 H, Lymph % (Auto) 3.9 L, [place] % (Auto) 3.4, Eos % (Auto) 0.1, Baso % (Auto) 0.1, Absolute Neuts (auto) 25.9 H, Absolute Lymphs (auto) 1.11, Nucleated RBC % 0, Differential Comment SCANNED 07/25/22 04:55: Sodium 141, Potassium 4.1, Chloride 109 H, Carbon Dioxide 22.0, Anion Gap 10, BUN 48 H, Creatinine 2.40 H, Estim Creat Clear Calc 15.21, Est GFR (MDRD) Af Amer 25 L, Est GFR (MDRD) Non-Af 21 L, BUN/Creatinine Ratio 20.0, Glucose 115 H, Calcium 7.2 L, Total Bilirubin 0.50, AST 19, ALT 11 L, Alkaline Phosphatase 162 H, Total Protein 4.5 L, Albumin 1.3 L, Globulin 3.2, Albumin/Globulin Ratio 0.4 L Micro: Microbiology 07/24/22 14:40 Blood Culture (Wb) - Port Blood Culture - Preliminary GNR lactose printed circuit board assembly repairer 07/24/22 18:21 Urine Catheter - Catheter Legionella Antigen - Final 07/24/22 18:21 Urine Catheter - Catheter Streptococcus pneumoniae Antigen (M - Final 07/24/22 14:18 Nasal Secretion SARS-CoV-2 Antigen (Rapid) - Final Radiology Impression Abdomen/Pelvis CT 07/24/22 14:24 IMPRESSION: Limited evaluation of the upper abdominal structures due to the dense metallic artifacts caused by the extensive back surgery. The tip of the KENNEY catheter is seen within the vagina extending into the cervix. Small left pleural effusion with bibasilar atelectasis and/or infiltrates worse on the left side. Electronically Signed: Samuel Gimenez MD at 15:42 EDT , Chest X-Ray 07/24/22 15:26 IMPRESSION: Findings suggestive for scarring at the right lung base with possible early infiltrate in the posterior segment of the left lower lobe. Electronically Signed: Samuel Gimenez MD at 15:38 EDT , Chest X-Ray 07/25/22 05:55 IMPRESSION: New infiltrate in the left upper lobe. Stable infiltrate in the posterior medial segment of the left lower lobe. Electronically Signed: Samuel Gimenez MD at 8:47 EDT ,
[2022-07-25 10:25] LABS: Pathologist Review Reviewed
--- NOTE | 2022-07-25 10:33 | CASEMGMT ---
JUAN CARLOS participated in interdisciplinary rounds in ICU. A consult was placed for Hospice. JUAN CARLOS called patient's nephew, Adalberto. Adalberto is also patient's Healthcare Power of Racket [employer]er. JUAN CARLOS spoke with Adalberto about Hospice and he feels it would be best for patient as she has had a rough decline over the last while. Adalberto would like the local Hospice. JUAN CARLOS let Adalberto know that SW will make the referral and someone from Hospice will contact him to discuss their services. Adalberto was in agreement with this plan. JUAN CARLOS then asked if the plan is for patient to go back to [facility] or would he like a list of other facilities that take patient's insurance. Adalberto said patient wanted to go to [facility] so he feels she should go back. JUAN CARLOS also explained that if patient returns on Hospice room and board would be private pay and insurance would excelsior picker the cost of Hospice services. Adalberto said patient is pending Medicaid already. JUAN CARLOS thanked Adalberto for the information and JUAN CARLOS will continue to follow and assist with discharge planning. JUAN CARLOS called [facility] referral line regarding referral. JUAN CARLOS also faxed information. Patient's RN was notified referral was made. Plan: Back to [facility] on Hospice. Stephanie Bolaños FINISHING TUNNEL OPERATOR GRIFFIN
--- NOTE | 2022-07-25 10:40 | CASEMGMT ---
Discharge Systems Mgr Patsy luong assistant finance manager sent over patient update to Shaila via [facility]. Plan: Shaila Casanova Discharge Systems Mgr
[2022-07-25] MEDS: CHLORHEXIDINE GLUC 2% CLOTH 1 EACH TOWELETTE TOPICAL (11:21)
--- NOTE | 2022-07-25 12:47 | CHAPLAIN ---
Type of Pastoral Visit _x__ Initial Visit ___ Follow-up Visit ___ On-call Visit ___ General Patient Visit ___ Spiritual Assessment ___ Family Conference ___ Bereavement ___ Rapid Response ___ Code Blue ___ Other (describe below) Pastoral Care Referral From ___ Patient ___ Family ___ Nurse ___ Physician ___ Hoist Cylinder Loader ___ Nuclear Design Engineer _x__ Other (describe below) Sacrament/Intervention ___ Active listening ___ Anointing ___ Jewish ___ Bereavement ___ Communion ___ Sharlene exploration ___ ___ Life review _x__ Prayer ___ Reconciliation ___ Sacrament of Sick ___ Supportive presence ___ Wedding ___ Other (describe below) Pastoral Comments patient is sleeping and does not awaken to her name; no family is present at this time; offered prayer and left a calling card; will watch for other opportunities to support family or patient in the future
[2022-07-26] VITALS (47 sets, daily range): BP systolic 77–143; BP diastolic 54–91; PULSE 66–85; RESP 11–31; TEMP 36.4–36.9; O2SAT 96–99
[2022-07-26] MEDS: TITRATION PARAMETER CHANGE 1 EACH IV
[2022-07-26] MEDS: 0.9% Normal Saline 1,000 ML 100 ML IV (00:45)
[2022-07-26 05:32] LABS: Absolute Lymphocyte Count 0.59 X10^3/uL (0.83-4.51); Absolute Neutrophil Count 7.3 X10^3/uL (2.0-7.7); Basophil# 0.03 X10^3/uL; Basophil% 0.4 % (0-1); Eosinophil# 0.08 X10^3/uL; Eosinophils% 0.9 % (0-5); Hematocrit 22.8 % (37-47); Hemoglobin 7.3 g/dL (12.0-15.0); Lymphocyte # 0.59 X10^3/ul (0.83-4.51); Lymphocyte % 6.9 % (19-41); Mean Platelet Vol. 11.6 fl (6.2-12.0); Monocyte# 0.47 X10^3/uL; Monocyte% 5.5 % (0-10); NRBC Flagged by Analyzer 0 % (0-5); Neutrophil % 85.6 % (47-70); POSITIVE DIFFERENTIAL YES; Platelet Count 110 K/mm3 (150-450); RBC Distribution Width CV 15.8 % (11.6-14.6); RBC Distribution Width SD 61.1 fl (35.1-43.9); Red Blood Count 2.15 M/mm3 (4.2-5.4); White Blood Count 8.5 K/mm3 (4.4-11.0)
[2022-07-26 05:33] LABS: Differential Indicated SCAN CRITERIA MET
[2022-07-26 05:48] LABS: Vancomycin, Random Level 17.7 ug/mL (0.0-15.0)
[2022-07-26 05:50] LABS: ALB/GLOB Ratio 0.4 RATIO (0.9-2.4); AST(SGOT) 14 U/L (15-37); Alanine Aminotransfer ALT/SGPT 8 U/L (13-56); Albumin, Serum 1.1 g/dL (3.2-5.0); Alkaline Phosphatase 116 U/L (45-117); Anion Gap 6 (5-15); BUN 35 mg/dL (7-18); BUN/Creat Ratio 19.8 RATIO (10-20); Calcium,Total 6.6 mg/dL (8.5-10.1); Chloride 118 mmol/L (98-107); Creatinine, Serum 1.77 mg/dL (0.55-1.02); EST Glomerular Filtration Rate 29 mL/min (>60); Est Glom Filt Rate - Afr Amer 35 mL/min (>60); Estimated Creatinine Clearance 20.62 ml/min; Globulin 2.6 g/dL (2.2-4.2); Glucose 79 mg/dL (74-106); Magnesium 2.2 mg/dL (1.6-2.6); Phosphorus 2.9 mg/dL (2.5-4.9); Potassium 3.2 mmol/L (3.5-5.1); Protein, Total 3.7 g/dL (6.4-8.2); Sodium Level 146 mmol/L (136-145)
[2022-07-26 06:08] LABS: Differential Comment SCANNED; Hypochromasia 1+
[2022-07-26] MEDS: 0.9% Saline Lock 10 ML Syringe IV (06:24)
--- NOTE | 2022-07-26 06:26 | PHA.PHARE_ITS ---
Consult Pharmacy has been consulted to manage selected antiobiotic: Vancomycin Type of Consult: Follow-up Suspected Infection: Sepsis Prior Doses of Antibiotics Received/Current Regimen: Medications Vancomycin HCl () 500 mg in 100 mls @ 100 mls/hr IV Q24H SANGEETA Labs: Sodium 146 mmol/L (136-145) H 07/26/22 05:25 Potassium 3.2 mmol/L (3.5-5.1) L 07/26/22 05:25 Chloride 118 mmol/L (98-107) H 07/26/22 05:25 Carbon Dioxide 22.0 mmol/L (21.0-32.0) 07/26/22 05:25 Anion Gap 6 (5-15) 07/26/22 05:25 BUN 35 mg/dL (7-18) H 07/26/22 05:25 Creatinine 1.77 mg/dL (0.55-1.02) H 07/26/22 05:25 Est GFR (MDRD) Af Amer 35 mL/min (>60) L 07/26/22 05:25 Est GFR (MDRD) Non-Af 29 mL/min (>60) L 07/26/22 05:25 BUN/Creatinine Ratio 19.8 RATIO (10-20) 07/26/22 05:25 Glucose 79 mg/dL (74-106) 07/26/22 05:25 Random Vancomycin 17.7 ug/mL (0.0-15.0) H 07/26/22 05:25 Microbiology: Microbiology 07/24/22 14:48 Wound - Back Gram Stain - Final 07/24/22 14:48 Wound - Back Wound Culture - Preliminary Gram negative harini GNR lactose microstrategy reports developer 07/24/22 16:05 Urine, Catheterized Urine Culture - Preliminary GNR lactose microstrategy reports developer 07/24/22 14:40 Blood Culture (Wb) - Port Blood Culture - Preliminary GNR lactose microstrategy reports developer 07/24/22 18:21 Urine Catheter - Catheter Legionella Antigen - Final 07/24/22 18:21 Urine Catheter - Catheter Streptococcus pneumoniae Antigen (M - Final 07/24/22 14:18 Nasal Secretion SARS-CoV-2 Antigen (Rapid) - Final Weight used for dosin.4 kg Estimated Creatinine Clearance: 20.6 Goal Trough: 15-20 mcg/mL Pharmacy Plan for Drug Dosing: Vancomycin random level was 17.7. The CrCl benny to above 20ml/min, allowing daily dosing of 500mg. Will draw a trough level prior to 3rd dose. Pharmacy Service will continue to monitor and adjust dosing as required. Follow-Up Labs: Trough Vancomycin Labs to be done on [date and time ordered]: 07/28/22 @8838
[2022-07-26] MEDS: Vancomycin IV 500 MG/100 ML BAG 100 MG IV (06:57)
--- NOTE | 2022-07-26 07:03 | PN.CC_ITS ---
Assessment & Plan Assessment/Plan (1) Septic shock: (2) ARTI (acute kidney injury): PLAN: Plan RECOMMENDATIONS: 1. Continue with broad-spectrum antibiotics pending culture results 2. Wean Levophed as possible 3. Wound nurse to left flank wound 4. Hold on midodrine for another 24 hours 5. Await nephew's decision on hospice 6. Pain control as necessary 7. Possibly discontinue vancomycin today if no gram-positives on culture IMPRESSIONS: 1. Gram-negative septic shock Source is unclear. Patient has had multiple episodes of infection in the past. Urinalysis appears to be somewhat suspect, but may be a result of bacteremia. Patient does have the left chest wound as a possible source. Patient does have a central line, but this appears to be benign at the skin. Patient is on appropriate antibiotics at this time. Wean pressors as tolerated. Could attempt fluid boluses intermittently given patient is on room air, but this could complicate clinical picture. Nephew is to speak with hospice in the near future. Await discussions. Understand patient does not want any invasive procedures in the interim. 2. Acute kidney injury with hyperkalemia secondary to septic shock Improving. Clinical suspicion for ATN secondary to sepsis. Patient presented with a creatinine of 3 with a baseline of approximately 1.2. Patient did receive fluid resuscitation initially and is currently on pressors. Patient does continue to have somewhat marginal urine output. No indication for renal replacement therapy at this time. We will continue to monitor closely. Likely not necessary to involve nephrology at this time. 3. Anemia of chronic disease/debility/weakness/recurrent infections Complicates care, management, recovery and prognosis. PT and OT have been consulted. Unclear rehab potential given comorbidities. Hemoglobin appears to be relatively stable at this time. No indication for transfusions. Did confirm patient is a DNR Comfort Care arrest without intubation, but she does want to continue with antibiotics as this seems to work. TIME: 33 minutes of critical care time spent addressing patient's septic shock, acute kidney injury, debility, review of all data and collaboration with care team Subjective Subjective Patient did well overnight. Unfortunately, patient had to be placed back on Levophed at approximately 8 PM. Patient's mentation is significantly improved. Patient is somewhat confused about time, but knows her location and situation. Patient states pain is well controlled. No nausea has been reported. Nursing is not reporting any clinical bleeding. Objective Data Objective Data Vital Signs: Vital Signs Temp Pulse Resp BP Pulse Ox O2 Del Method O2 Flow Rate 36.6 C 70 18 97/56 L 99 Room Air 3 07/26/22 06:00 07/26/22 06:00 07/26/22 06:00 07/26/22 06:00 07/26/22 06:00 07/26/22 06:00 07/24/22 17:49 Oxygen Flow Rate (L/min) 3 Oxygen Delivery Method Room Air Weight: 68.4 kg Body Mass Index (BMI) 25.2 Intake & Output: Intake and Output for Last 24 Hours 07/24/22 07/25/22 07/26/22 23:59 23:59 23:59 Intake Total 2722 / 2722 2680.12 / 2684.82 1269.57 / 1269.57 Output Total 1150 / 1150 Balance 2722 / 2347 1530.12 / 1534.82 1269.57 / 1269.57 Medical Nutrition Assessment Dietitian: Malnutrition Criteria Met Start: 07/25/22 10:37 Freq: Status: Active Protocol: Document 07/25/22 10:37 AG (Rec: 07/25/22 10:37 AG [id number]) Nutrition Malnutrition Evidence of Malnutrition Exists Yes Malnutrition (severe): Chronic Evidenced By Suboptimal Energy Intake ( Severe),Weight Loss (Severe), Physical Changes (Moderate) Clinical Problem Chronic Disease or Condition Related Malnutrition Etiology severe, chronic malnutrition related to inadequate oral intake w/ decreased appetite d /t hospitalizations for spinal abscess Signs/Symptoms as evidenced by unintentional wt loss of 59.3#/29% x 3 months; estimated oral intake meeting <75% of estimated energy needs >3 months; moderate muscle wasting/fat loss evident per physical exam in orbital, temporal, clavicle, and acromion areas. Status Active Problem Recommendation Dietitian Recommendations/Changes regular diet- texture/ consistency modifications per USED EQUIPMENT SALES REPRESENTATIVE; ensure enlive 120mL 4x/ day w/ medpass and Orestes BID for wound healing when appropriate for PO intake Lab / Micro Data Attestation: I reviewed the patient's lab results. Result Diagrams: 07/26/22 05:25 07/26/22 05:25 Labs: Laboratory Results - last 24 hr 07/24/22 14:03: Diff Path Review Reviewed 07/26/22 05:25: Random Vancomycin 17.7 H 07/26/22 05:25: WBC 8.5, RBC 2.15 L, Hgb 7.3 L, Hct 22.8 L, MCV 106.0 H, MCH 34.0 H, MCHC 32.0, RDW Std Deviation 61.1 H, RDW Coeff of Enedina 15.8 H, Plt Count 110 L, MPV 11.6, Immature Gran % (Auto) 0.700, Neut % (Auto) 85.6 H, Lymph % (Auto) 6.9 L, [place] % (Auto) 5.5, Eos % (Auto) 0.9, Baso % (Auto) 0.4, Absolute Neuts (auto) 7.3, Absolute Lymphs (auto) 0.59 L, Nucleated RBC % 0, Differential Comment SCANNED, Hypochromasia 1+ 07/26/22 05:25: Sodium 146 H, Potassium 3.2 L, Chloride 118 H, Carbon Dioxide 22.0, Anion Gap 6, BUN 35 H, Creatinine 1.77 H, Estim Creat Clear Calc 20.62, Est GFR (MDRD) Af Amer 35 L, Est GFR (MDRD) Non-Af 29 L, BUN/Creatinine Ratio 19.8, Glucose 79, Calcium 6.6 L, Phosphorus 2.9, Magnesium 2.2, Total Bilirubin 0.30, AST 14 L, ALT 8 L, Alkaline Phosphatase 116, Total Protein 3.7 L, Albumin 1.1 L, Globulin 2.6, Albumin/Globulin Ratio 0.4 L Micro: Microbiology 07/24/22 14:48 Wound - Back Gram Stain - Final 07/24/22 14:48 Wound - Back Wound Culture - Preliminary Gram negative harini GNR lactose molecular genetic pathologist 07/24/22 16:05 Urine, Catheterized Urine Culture - Preliminary GNR lactose molecular genetic pathologist 07/24/22 14:40 Blood Culture (Wb) - Port Blood Culture - Preliminary GNR lactose molecular genetic pathologist 07/24/22 18:21 Urine Catheter - Catheter Legionella Antigen - Final 07/24/22 18:21 Urine Catheter - Catheter Streptococcus pneumoniae Antigen (M - Final 07/24/22 14:18 Nasal Secretion SARS-CoV-2 Antigen (Rapid) - Final Radiography Diagnostic Testing: Radiology Impression Chest X-Ray 07/25/22 05:55 IMPRESSION: New infiltrate in the left upper lobe. Stable infiltrate in the posterior medial segment of the left lower lobe. Electronically Signed: Samuel Gimenez MD at 8:47 EDT , Physical Exam Const alert and no apparent distress Constitutional Narrative: Oriented x2 General Appearance: frail HEENT normocephalic, head/scalp atraumatic and moist oral mucous membranes Eyes conjunctivae normal and no scleral icterus Neck no lymphadenopathy and supple General: trachea midline Chest Chest Narrative: Central line in right chest is clean, dry and intact. Resp normal respiratory effort and normal air movement Auscultation: diminished lung sounds; Negative for rales, rhonchi or wheezes Cardio regular rate, regular rhythm, S1 normal heart sound, S2 normal heart sound, no murmurs, no rub, no gallops and peripheral pulses 2+ throughout GI normal to inspection, nondistended, normoactive bowel sounds, soft to palpation and non-tender Extremity normal capillary refill and no clubbing, cyanosis or edema Skin Wound Narrative: Large wound in the left chest. Dressing is clean, dry and intact. Neuro moves all extremities and no focal motor deficits Motor Exam: general weakness Psych Psych Narrative: Much more responsive today compared to yesterday Mood & Affect: flat affect Charges/Coding Procedures Hospitalists Procedures: [id number] Critial Care 1st Hr
--- NOTE | 2022-07-26 07:43 | PCM.PN.HOSP ---
Subjective Subjective Follow-up on septic shock/debility/ARTI/Klebsiella pneumoniae bacteremia Patient was seen and examined.? Patient was off Levophed felt well, back on Levophed again. Blood cultures growing Klebsiella pneumoniae. Wound and urine cultures growing gram-negative harini lactose dairy nutritionist Objective Data Objective Data Vital Signs: Vital Signs Temp Pulse Resp BP Pulse Ox O2 Del Method O2 Flow Rate 98.2 F 70 15 97/61 98 Room Air 3 07/26/22 07:00 07/26/22 07:00 07/26/22 07:00 07/26/22 07:00 07/26/22 07:00 07/26/22 07:00 07/24/22 17:49 Oxygen Flow Rate (L/min) 3 Oxygen Delivery Method Room Air Weight: 68.4 kg Body Mass Index (BMI) 25.2 Intake & Output: Intake and Output for Last 24 Hours 07/24/22 07/25/22 07/26/22 23:59 23:59 23:59 Intake Total 2722 / 2722 2680.12 / 2684.82 1694.27 / 1694.27 Output Total 1150 / 1150 250 / 250 Balance 2722 / 2347 1530.12 / 1534.82 1444.27 / 1444.27 Medical Nutrition Assessment Dietitian: Malnutrition Criteria Met Start: 07/25/22 10:37 Freq: Status: Active Protocol: Document 07/25/22 10:37 AG (Rec: 07/25/22 10:37 AG [id number]) Nutrition Malnutrition Evidence of Malnutrition Exists Yes Malnutrition (severe): Chronic Evidenced By Suboptimal Energy Intake ( Severe),Weight Loss (Severe), Physical Changes (Moderate) Clinical Problem Chronic Disease or Condition Related Malnutrition Etiology severe, chronic malnutrition related to inadequate oral intake w/ decreased appetite d /t hospitalizations for spinal abscess Signs/Symptoms as evidenced by unintentional wt loss of 59.3#/29% x 3 months; estimated oral intake meeting <75% of estimated energy needs >3 months; moderate muscle wasting/fat loss evident per physical exam in orbital, temporal, clavicle, and acromion areas. Status Active Problem Recommendation Dietitian Recommendations/Changes regular diet- texture/ consistency modifications per MARINE CARGO SPECIALIST; ensure enlive 120mL 4x/ day w/ medpass and Orestes BID for wound healing when appropriate for PO intake Lab / Micro Data Result Diagrams: 07/26/22 05:25 07/26/22 05:25 Labs: Laboratory Results - last 24 hr 07/24/22 14:03: Diff Path Review Reviewed 07/26/22 05:25: Random Vancomycin 17.7 H 07/26/22 05:25: WBC 8.5, RBC 2.15 L, Hgb 7.3 L, Hct 22.8 L, MCV 106.0 H, MCH 34.0 H, MCHC 32.0, RDW Std Deviation 61.1 H, RDW Coeff of Enedina 15.8 H, Plt Count 110 L, MPV 11.6, Immature Gran % (Auto) 0.700, Neut % (Auto) 85.6 H, Lymph % (Auto) 6.9 L, [place] % (Auto) 5.5, Eos % (Auto) 0.9, Baso % (Auto) 0.4, Absolute Neuts (auto) 7.3, Absolute Lymphs (auto) 0.59 L, Nucleated RBC % 0, Differential Comment SCANNED, Hypochromasia 1+ 07/26/22 05:25: Sodium 146 H, Potassium 3.2 L, Chloride 118 H, Carbon Dioxide 22.0, Anion Gap 6, BUN 35 H, Creatinine 1.77 H, Estim Creat Clear Calc 20.62, Est GFR (MDRD) Af Amer 35 L, Est GFR (MDRD) Non-Af 29 L, BUN/Creatinine Ratio 19.8, Glucose 79, Calcium 6.6 L, Phosphorus 2.9, Magnesium 2.2, Total Bilirubin 0.30, AST 14 L, ALT 8 L, Alkaline Phosphatase 116, Total Protein 3.7 L, Albumin 1.1 L, Globulin 2.6, Albumin/Globulin Ratio 0.4 L Micro: Microbiology 07/24/22 14:40 Blood Culture (Wb) - Port Blood Culture - Preliminary Klebsiella pneumoniae sp pneum 07/24/22 14:48 Wound - Back Gram Stain - Final 07/24/22 14:48 Wound - Back Wound Culture - Preliminary Gram negative harini GNR lactose dairy nutritionist 07/24/22 16:05 Urine, Catheterized Urine Culture - Preliminary GNR lactose dairy nutritionist 07/24/22 18:21 Urine Catheter - Catheter Legionella Antigen - Final 07/24/22 18:21 Urine Catheter - Catheter Streptococcus pneumoniae Antigen (M - Final 07/24/22 14:18 Nasal Secretion SARS-CoV-2 Antigen (Rapid) - Final Radiography Diagnostic Testing: Radiology Impression Chest X-Ray 07/25/22 05:55 IMPRESSION: New infiltrate in the left upper lobe. Stable infiltrate in the posterior medial segment of the left lower lobe. Electronically Signed: Samuel Gimenez MD at 8:47 EDT , Physical Exam Narrative Physical exam: General: Alert, Oriented, confused, cooperative, appears very frail, unwell, HEENT: Atraumatic Oral: Poor oral dentition and hygiene, dry oral mucosa Neck: Supple Lungs: Diminished to auscultation Cardiovascular: HS I+II, regular, no murmurs Abdomen: Bowel Sounds Present, Soft, Non Tender Extremities: No edema Skin: No rashes, No breakdown Neurological: Grossly intact Psych/Mental Status: Appropriate Assessment & Plan Assessment/Plan (1) Septic shock: PLAN: Plan 1. 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 Subcutaneous fluid collection was also seen Patient was transferred to [facility] on 04/24/22. She has apparently had extensive back surgeries. WBC count is 8.5 today from 28.4 Continue on Levophed, Meropenem, vancomycin ID and critical care following 2. Acute kidney injury on CKD stage 3, baseline creatinine is 1.2 Admitted with creatinine of 3.03, creatinine is 1.77 continue with IV fluid hydration and pressors Trend labs in a.m. 3. Hypokalemia, replace, recheck in a.m. 4. Anemia, acute on chronic, likely anemia of chronic disease, will check iron stores 5. Acute metabolic encephalopathy secondary to #1 and 2 Waxes and wanes, continue to monitor 6. Debility, acute on chronic, PT and OT to evaluate and treat 7. Severe protein calorie malnutrition, boilerhouse mechanic consulted, continue supplements 8. DVT prophylaxis - Heparin SC CODE STATUS DNR CCA no intubation, Hospice at discharge Charges/Coding Visit Charges Inpatient E&M: 60388 Subs Hosp L2
--- NOTE | 2022-07-26 09:34 | CASEMGMT ---
JUAN CARLOS received a call from [facility] with [facility] and Hospice papers have been signed. JUAN CARLOS will let them know when patient is being discharged. JUAN CARLOS updated RN. Plan: d/c to back to [facility] on [facility]. Stephanie MOYA
[2022-07-26] MEDS: Potassium Chloride Oral Tablet 20 MEQ PO ×2 (09:35→16:37)
[2022-07-26] MEDS: Heparin Injection (Vial) 5,000 UNIT/ML VIAL 5000 UNIT SC ×2 (09:35→21:11)
[2022-07-26] MEDS: CHLORHEXIDINE GLUC 2% CLOTH 1 EACH TOWELETTE TOPICAL (10:55)
[2022-07-26] MEDS: 0.9% Normal Saline 1,000 ML 75 ML IV ×2 (10:55→23:41)
--- NOTE | 2022-07-26 11:15 | PCM.PN.ID ---
Physical Exam Narrative Feeling better, no fever, no abd pain Const alert and no apparent distress Resp normal air movement and clear to auscultation bilaterally Cardio regular rate and regular rhythm GI soft to palpation, non-tender and non-distended Skin Skin Narrative: Wounds bandaged ID ID: Route of nutrition/ use of supplements: [] Nutritional Intake: [] IV Site: [] Goodwin Catheter: [] Assessment & Plan Assessment/Plan (1) Septic shock: (2) Bacteremia due to Gram-negative bacteria: PLAN: ESBL klebs bacteremia. Unclear source. UA with only 5-10 wbc, UCx with GNR. Wound cx with GNR x2. CXR with some infiltrates. CT abd/pelvis did not show abscess but limited due to amount of hardware present. Has been on omnicef for past month for indefinite suppression s/p mssa bacteremia with epidural abscesses requiring multiple surgeries and hardware placement in 04/[address] [facility]. Now with septic shock. Wbc improved, no fever here. Cont meropenem, will stop vanc. Will follow (3) Abscess in epidural space of lumbar spine: (4) ARTI (acute kidney injury):
[2022-07-26] MEDS: Ensure Plus High Protein 120 ML LIQUID PO ×2 (13:44→21:10)
--- NOTE | 2022-07-26 13:53 | CASEMGMT ---
Patient is a little bit more alert and oriented today. JUAN CARLOS spoke with patient. Introduced self and role at [facility]. JUAN CARLOS spoke with patient about d/c plan. Patient said she does want to go back to [place] for some more therapy. SW asked if she was getting therapy at [facility]. Patient said she was not, but she has not been there that long. SW spoke with patient about the difference in going on Hospice versus returning for skilled therapy. Patient then talked about she hopes to get home some day. Patient then said she knows she won't be able to go back to work. JUAN CARLOS called [facility] and spoke with Jane. Jane said patient is there on pending Medicaid. Jane asked when patient would be discharged. JUAN CARLOS told her possibly over the weekend, but maybe Friday. JUAN CARLOS told her about discussion with Hospice and nephew. Jane asked that SW let her know. JUAN CARLOS called patient's nephew and SCOTT [facility]. Adalberto said he did sign papers with Hospice. The plan is for patient to return to [place] on Hospice. JUAN CARLOS did talk with him about patient mentioning getting therapy. Adalberto said she has already used all of her skilled days so she is not eligible for anymore therapy. JUAN CARLOS let Adalberto know JUAN CARLOS is not sure when patient will be ready whether it is over the weekend or Friday. Regardless someone from [facility] should call and notify him. JUAN CARLOS spoke with Rosangela at Hospice and let her know above. Plan: Return to [place] on Hospice when ready. Stephanie MOYA
[2022-07-26 15:56] LABS: Iron 26 ug/dL (50-170); Iron Binding Capacity,Total 57 ug/dL (250-450); PERCENT IRON SATURATION 45.6 % (15.0-55.0)
--- NOTE | 2022-07-26 16:05 | CHAPLAIN ---
Type of Pastoral Visit _x__ Initial Visit ___ Follow-up Visit ___ On-call Visit ___ General Patient Visit ___ Spiritual Assessment ___ Family Conference ___ Bereavement ___ Rapid Response ___ Code Blue ___ Other (describe below) Pastoral Care Referral From _x__ Patient ___ Family ___ Nurse ___ Physician ___ Route Driver Salesperson ___ Bessemer Converter Operator ___ Other (describe below) Sacrament/Intervention _x__ Active listening ___ Anointing ___ Sabianist ___ Bereavement ___ Communion _x__ Sharlene exploration ___ _x__ Life review _x__ Prayer ___ Reconciliation ___ Sacrament of Sick _x__ Supportive presence ___ Wedding ___ Other (describe below) Pastoral Comments patient was able to awaken by this pin chaser calling her name; introduced self and role; pt talks about not wanting to drink that stuff and what she was hoping to eat; pt gives some life review; pt talks about being in SNF recently and expects to go back; pt stated that she used to go to [employer] every Friday and is a Jewish; pt welcomed prayer and presence of this pin chaser; time given to sit at bedside; pt does not appear to be distressed and states no needs at this time
[2022-07-26] MEDS: Juven (unflavored) Packet 1 PACKET PO (16:37)
--- NOTE | 2022-07-26 20:29 | NURSING ---
Dumas not draining, pt incont of urine. Attempted to manually irrigate dumas, unable to do so. Dumas removed, and new one placed d/t obstruction/sediment in tubing. New dumas draining well at this time.
[2022-07-27] VITALS (32 sets, daily range): BP systolic 91–114; BP diastolic 51–89; PULSE 75–159; RESP 14–30; TEMP 36.8–37.3; O2SAT 93–99
[2022-07-27 03:24] LABS: Absolute Lymphocyte Count 0.44 X10^3/uL (0.83-4.51); Absolute Neutrophil Count 5.3 X10^3/uL (2.0-7.7); Basophil# 0.02 X10^3/uL; Basophil% 0.3 % (0-1); Eosinophils% 1.6 % (0-5); Hemoglobin 6.8 g/dL (12.0-15.0); Lymphocyte # 0.44 X10^3/ul (0.83-4.51); Mean Corp Hgb Conc 30.9 g/dL (32-36); Mean Corpuscular Hgb 32.7 pg (27.0-32.0); Mean Corpuscular Volume 105.8 fL (81-99); Mean Platelet Vol. 11.6 fl (6.2-12.0); Monocyte# 0.38 X10^3/uL; Monocyte% 6.1 % (0-10); NRBC Flagged by Analyzer 0 % (0-5); Neutrophil # 5.26 X10^3/uL (2.7-7.7); POSITIVE DIFFERENTIAL YES; Platelet Count 105 K/mm3 (150-450); RBC Distribution Width CV 15.6 % (11.6-14.6); RBC Distribution Width SD 60.4 fl (35.1-43.9); Red Blood Count 2.08 M/mm3 (4.2-5.4); White Blood Count 6.3 K/mm3 (4.4-11.0)
[2022-07-27 03:26] LABS: Differential Indicated SCAN CRITERIA MET
[2022-07-27 03:40] LABS: Differential Comment SCANNED; Hypochromasia 1+
[2022-07-27 03:48] LABS: ALB/GLOB Ratio 0.5 RATIO (0.9-2.4); AST(SGOT) 14 U/L (15-37); Alanine Aminotransfer ALT/SGPT 8 U/L (13-56); Alkaline Phosphatase 98 U/L (45-117); Anion Gap 4 (5-15); BUN 23 mg/dL (7-18); BUN/Creat Ratio 19.7 RATIO (10-20); Calcium,Total 6.5 mg/dL (8.5-10.1); Chloride 122 mmol/L (98-107); Creatinine, Serum 1.17 mg/dL (0.55-1.02); EST Glomerular Filtration Rate 47 mL/min (>60); Est Glom Filt Rate - Afr Amer 57 mL/min (>60); Estimated Creatinine Clearance 31.19 ml/min; Globulin 2.2 g/dL (2.2-4.2); Glucose 67 mg/dL (74-106); Magnesium 2.1 mg/dL (1.6-2.6); Phosphorus 1.9 mg/dL (2.5-4.9); Potassium 3.2 mmol/L (3.5-5.1); Protein, Total 3.2 g/dL (6.4-8.2); Sodium Level 148 mmol/L (136-145)
--- NOTE | 2022-07-27 04:16 | PCM.PN.BLA ---
Progress Note Nurse reports a.m. labs with potassium of 3.2; hemoglobin was 6.8; phosphorus of 1.9; calcium was 6.5. 2 units of packed red blood cells ordered with order to transfuse 1 unit. Check H&H 1 hour after transfusion. Potassium phosphate ordered. Calcium corrected for albumin is 8.9. Ionized calcium ordered. Heparin subcutaneous for DVT prophylaxis discontinued. SCDs ordered. Review of iron studies showed inflammatory anemia. Also ferritin level on 04/23/2022 was 758.
[2022-07-27] MEDS: CHLORHEXIDINE GLUC 2% CLOTH 1 EACH TOWELETTE TOPICAL (04:40)
[2022-07-27] MEDS: 0.9% Saline Lock 10 ML Syringe IV ×4 (04:40→21:49)
[2022-07-27 05:01] LABS: Bedside Glucose 65 mg/dL (74-106)
[2022-07-27 05:21] LABS: Bedside Glucose 62 mg/dL (74-106)
--- NOTE | 2022-07-27 05:24 | NURSING ---
Glucose on CMP noted to be 67. Fingerstick glucose checked, 65. Pt aysmptomatic, 1 container of orange juice given. Rechecked blood sugar x2 and it was [address] Mackey notified and gave order for 1/2 amp d50.
[2022-07-27] MEDS: Dextrose 50%-Water 25 GM/50 ML DISP.SYRIN IV (05:33)
[2022-07-27 05:35] LABS: Bedside Glucose 66 mg/dL (74-106)
[2022-07-27 06:30] LABS: Bedside Glucose 106 mg/dL (74-106)
--- NOTE | 2022-07-27 06:52 | PCM.PN.INT ---
Assessment & Plan Assessment/Plan (1) Septic shock: (2) ARTI (acute kidney injury): PLAN: Plan RECOMMENDATIONS: 1. Continue with meropenem 2. Blood transfusion as ordered 3. Wound nurse to left flank wound 4. Potentially initiate midodrine if pressures remain marginal 5. Await nephew's decision on hospice 6. Pain control as necessary 7. Okay to leave the intensive care unit from my perspective IMPRESSIONS: 1. ESBL septic shock Source is unclear. Clinical suspicion for left flank wound. Patient has had multiple episodes of infection in the past. Urinalysis appears to be somewhat suspect, but may be a result of bacteremia. Patient does have a central line, but this appears to be benign at the skin. Patient is on appropriate antibiotics at this time. Off pressors overnight. Okay to initiate midodrine if necessary. Patient is significantly positive over the course of the hospitalization. May benefit from Lasix if becomes hypoxic. Ongoing discussions with hospice, but patient wishes to continue with antibiotics. Understand patient does not want any invasive procedures in the interim. 2. Acute kidney injury with hyperkalemia secondary to septic shock Resolved. Clinical suspicion for ATN secondary to sepsis. Patient presented with a creatinine of 3 with a baseline of approximately 1.2. Patient did receive fluid resuscitation and pressors initially. Patient does continue to have somewhat marginal urine output. No indication for renal replacement therapy at this time. We will continue to monitor closely. Likely not necessary to involve nephrology at this time. 3. Anemia of chronic disease/debility/weakness/recurrent infections Complicates care, management, recovery and prognosis. PT and OT have been consulted. Unclear rehab potential given comorbidities. Hemoglobin appears to be relatively stable at this time. No indication for transfusions. Did confirm patient is a DNR Comfort Care arrest without intubation, but she does want to continue with antibiotics as this seems to work. Subjective Subjective Patient did okay overnight. Patient has been off of Levophed over the evening. No acute bleeding has been reported. Patient does wake up and interact, but has had marginal p.o. intake. Patient has tolerated SCDs well. Heparin was discontinued secondary to fall and hemoglobin. Objective Data Objective Data Vital Signs: Vital Signs Temp Pulse Resp BP Pulse Ox O2 Del Method O2 Flow Rate 37.2 C 82 20 H 91/53 L 97 Room Air 3 07/27/22 06:15 07/27/22 06:15 07/27/22 06:15 07/27/22 06:15 07/27/22 06:15 07/27/22 06:15 07/24/22 17:49 Oxygen Flow Rate (L/min) 3 Oxygen Delivery Method Room Air Weight: 70.4 kg Body Mass Index (BMI) 25.2 Intake & Output: Intake and Output for Last 24 Hours 07/25/22 07/26/22 07/27/22 23:59 23:59 23:59 Intake Total 2680.12 / 2684.82 3433.36 / 3433.36 120 / 120 Output Total 1150 / 1150 740 / 740 200 / 200 Balance 1530.12 / 1534.82 2693.36 / 2693.36 -80 / -80 Medical Nutrition Assessment Dietitian: Malnutrition Criteria Met Start: 07/25/22 10:37 Freq: Status: Active Protocol: Document 07/25/22 10:37 AG (Rec: 07/25/22 10:37 AG [id number]) Nutrition Malnutrition Evidence of Malnutrition Exists Yes Malnutrition (severe): Chronic Evidenced By Suboptimal Energy Intake ( Severe),Weight Loss (Severe), Physical Changes (Moderate) Clinical Problem Chronic Disease or Condition Related Malnutrition Etiology severe, chronic malnutrition related to inadequate oral intake w/ decreased appetite d /t hospitalizations for spinal abscess Signs/Symptoms as evidenced by unintentional wt loss of 59.3#/29% x 3 months; estimated oral intake meeting <75% of estimated energy needs >3 months; moderate muscle wasting/fat loss evident per physical exam in orbital, temporal, clavicle, and acromion areas. Status Active Problem Recommendation Dietitian Recommendations/Changes regular diet- texture/ consistency modifications per COMPUTER FORENSICS TECHNICIAN; ensure enlive 120mL 4x/ day w/ medpass and Orestes BID for wound healing when appropriate for PO intake Lab / Micro Data Attestation: I reviewed the patient's lab results. Result Diagrams: 07/27/22 03:15 07/27/22 03:15 Labs: Laboratory Results - last 24 hr 07/26/22 05:25: Iron 26 L, TIBC 57 L, Iron Saturation 45.6 07/27/22 03:15: WBC 6.3, RBC 2.08 L, Hgb 6.8 L, Hct 22.0 L, MCV 105.8 H, MCH 32.7 H, MCHC 30.9 L, RDW Std Deviation 60.4 H, RDW Coeff of Enedina 15.6 H, Plt Count 105 L, MPV 11.6, Immature Gran % (Auto) 1.000 H, Neut % (Auto) 84.0 H, Lymph % (Auto) 7.0 L, [place] % (Auto) 6.1, Eos % (Auto) 1.6, Baso % (Auto) 0.3, Absolute Neuts (auto) 5.3, Absolute Lymphs (auto) 0.44 L, Nucleated RBC % 0, Differential Comment SCANNED, Hypochromasia 1+ 07/27/22 03:15: Sodium 148 H, Potassium 3.2 L, Chloride 122 H, Carbon Dioxide 22.0, Anion Gap 4 L, BUN 23 H, Creatinine 1.17 H, Estim Creat Clear Calc 31.19, Est GFR (MDRD) Af Amer 57 L, Est GFR (MDRD) Non-Af 47 L, BUN/Creatinine Ratio 19.7, Glucose 67 L, Calcium 6.5 L*, Phosphorus 1.9 L, Magnesium 2.1, Total Bilirubin 0.30, AST 14 L, ALT 8 L, Alkaline Phosphatase 98, Total Protein 3.2 L, Albumin 1.0 L, Globulin 2.2, Albumin/Globulin Ratio 0.5 L 07/27/22 04:30: Blood Type O POSITIVE, Antibody Screen NEGATIVE, Crossmatch See Detail 07/27/22 04:36: POC Glucose 65 L 07/27/22 05:02: POC Glucose 62 L 07/27/22 05:17: POC Glucose 66 L 07/27/22 06:09: POC Glucose 106 Micro: Microbiology 07/24/22 14:03 Blood Culture (Wb) - Anticubital Left Blood Culture - Preliminary No growth in 48 hours. 07/24/22 14:48 Wound - Back Gram Stain - Final 07/24/22 14:48 Wound - Back Wound Culture - Preliminary Gram negative harini GNR lactose federal [employer] law clerk 07/24/22 16:05 Urine, Catheterized Urine Culture - Preliminary GNR lactose federal court [employer] law clerk 07/24/22 14:40 Blood Culture (Wb) - Port Blood Culture - Preliminary Klebsiella pneumoniae sp pneum 07/24/22 18:21 Urine Catheter - Catheter Legionella Antigen - Final 07/24/22 18:21 Urine Catheter - Catheter Streptococcus pneumoniae Antigen (M - Final 07/24/22 14:18 Nasal Secretion SARS-CoV-2 Antigen (Rapid) - Final Physical Exam Const alert and no apparent distress Constitutional Narrative: Oriented x2 General Appearance: frail HEENT normocephalic, head/scalp atraumatic and moist oral mucous membranes Eyes conjunctivae normal and no scleral icterus Neck no lymphadenopathy and supple General: trachea midline Chest Chest Narrative: Central line in right chest is clean, dry and intact. Resp normal respiratory effort and normal air movement Resp Narrative: Nonlabored shallow breathing Auscultation: diminished lung sounds; Negative for rales, rhonchi or wheezes Cardio regular rate, regular rhythm, S1 normal heart sound, S2 normal heart sound, no murmurs, no rub, no gallops and peripheral pulses 2+ throughout GI normal to inspection, nondistended, normoactive bowel sounds, soft to palpation and non-tender Extremity normal capillary refill and no clubbing, cyanosis or edema Neuro moves all extremities and no focal motor deficits Sensorium / Orientation: lethargic Motor Exam: general weakness Psych Mood & Affect: flat affect Charges/Coding Visit Charges Inpatient E&M: 57029 Subs Hosp L3
[2022-07-27] MEDS: Juven (unflavored) Packet 1 PACKET PO (08:02)
--- NOTE | 2022-07-27 10:05 | PN.HOSP_ITS ---
Subjective Subjective Follow-up on septic shock/debility/ARTI/Klebsiella pneumoniae bacteremia: Patient was seen and examined.?She appears unchanged, lethargic, lying in bed. Alert to person, place and time. She reportedly has not been eating much. She denied any new complaints to me. She has been off her pressors since 5 PM yesterday. She is currently being transfused 1 unit of packed RBCs Objective Data Objective Data Vital Signs: Vital Signs Temp Pulse Resp BP Pulse Ox O2 Del Method O2 Flow Rate 99.0 F 78 14 99/53 L 94 Room Air 3 07/27/22 08:45 07/27/22 08:45 07/27/22 08:45 07/27/22 08:45 07/27/22 08:45 07/27/22 08:45 07/24/22 17:49 Oxygen Flow Rate (L/min) 3 Oxygen Delivery Method Room Air Weight: 70.4 kg Body Mass Index (BMI) 25.2 Intake & Output: Intake and Output for Last 24 Hours 07/25/22 07/26/22 07/27/22 23:59 23:59 23:59 Intake Total 2680.12 / 2684.82 3433.36 / 3433.36 1410.42 / 1410.42 Output Total 1150 / 1150 740 / 740 200 / 200 Balance 1530.12 / 1534.82 2693.36 / 2693.36 1210.42 / 1210.42 Medical Nutrition Assessment Dietitian: Malnutrition Criteria Met Start: 07/25/22 10 :37 Freq: Status: Active Protocol: Document 07/27/22 09:39 SLA (Rec: 07/27/22 09:39 SLA [id number]) Nutrition Malnutrition Evidence of Malnutrition Exists Yes Malnutrition (severe): Chronic Evidenced By Suboptimal Energy Intake ( Severe),Weight Loss (Severe), Physical Changes (Moderate) Clinical Problem Chronic Disease or Condition Related Malnutrition Etiology severe, chronic malnutrition related to inadequate oral intake w/ decreased appetite d /t hospitalizations for spinal abscess Signs/Symptoms as evidenced by unintentional wt loss of 59.3#/29% 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 Status Active Problem Recommendation Dietitian Recommendations/Changes Rec continue regular diet- texture/consistency modifications per GLIDING PILOT INSTRUCTOR Will continue ensure plus high protein 120mL 4x/day w/ medpass and Orestes BID for wound healing Rec consider appetite stimulant to help w/ increased intake at meals. Lab / Micro Data Result Diagrams: 07/27/22 03:15 07/27/22 03:15 Labs: Laboratory Results - last 24 hr 07/26/22 05:25: Iron 26 L, TIBC 57 L, Iron Saturation 45.6 07/27/22 03:15: WBC 6.3, RBC 2.08 L, Hgb 6.8 L, Hct 22.0 L, MCV 105.8 H, MCH 32.7 H, MCHC 30.9 L, RDW Std Deviation 60.4 H, RDW Coeff of Enedina 15.6 H, Plt Count 105 L, MPV 11.6, Immature Gran % (Auto) 1.000 H, Neut % (Auto) 84.0 H, Lymph % (Auto) 7.0 L, [place] % (Auto) 6.1, Eos % (Auto) 1.6, Baso % (Auto) 0.3, Absolute Neuts (auto) 5.3, Absolute Lymphs (auto) 0.44 L, Nucleated RBC % 0, Differential Comment SCANNED, Hypochromasia 1+ 07/27/22 03:15: Sodium 148 H, Potassium 3.2 L, Chloride 122 H, Carbon Dioxide 22.0, Anion Gap 4 L, BUN 23 H, Creatinine 1.17 H, Estim Creat Clear Calc 31.19, Est GFR (MDRD) Af Amer 57 L, Est GFR (MDRD) Non-Af 47 L, BUN/Creatinine Ratio 19.7, Glucose 67 L, Calcium 6.5 L*, Phosphorus 1.9 L, Magnesium 2.1, Total Bilirubin 0.30, AST 14 L, ALT 8 L, Alkaline Phosphatase 98, Total Protein 3.2 L, Albumin 1.0 L, Globulin 2.2, Albumin/Globulin Ratio 0.5 L 07/27/22 04:30: Blood Type O POSITIVE, Antibody Screen NEGATIVE, Crossmatch See Detail 07/27/22 04:36: POC Glucose 65 L 07/27/22 05:02: POC Glucose 62 L 07/27/22 05:17: POC Glucose 66 L 07/27/22 06:09: POC Glucose 106 Micro: Microbiology 07/24/22 14:48 Wound - Back Gram Stain - Final 07/24/22 14:48 Wound - Back Wound Culture - Final Pseudomonas aeroginosa Klebsiella pneumoniae sp pneum 07/24/22 16:05 Urine, Catheterized Urine Culture - Final Klebsiella pneumoniae sp pneum 07/24/22 14:40 Blood Culture (Wb) - Port Blood Culture - Final Klebsiella pneumoniae sp pneum 07/24/22 14:03 Blood Culture (Wb) - Anticubital Left Blood Culture - Preliminary No growth in 48 hours. 07/24/22 18:21 Urine Catheter - Catheter Legionella Antigen - Final 07/24/22 18:21 Urine Catheter - Catheter Streptococcus pneumoniae Antigen (M - Final 07/24/22 14:18 Nasal Secretion SARS-CoV-2 Antigen (Rapid) - Final Physical Exam Narrative Physical exam: General: Alert, Oriented, confused, cooperative, appears very frail, unwell, HEENT: Atraumatic Oral: Poor oral dentition and hygiene, dry oral mucosa Neck: Supple, right sided subclavian IJ catheter Lungs: Diminished to auscultation Cardiovascular: HS I+II, regular, no murmurs Abdomen: Bowel Sounds Present, Soft, Non Tender Extremities: No edema Skin: No rashes, No breakdown Neurological: Grossly intact Psych/Mental Status: Appropriate Assessment & Plan Assessment/Plan (1) Septic shock: PLAN: Plan 1. 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 Subcutaneous fluid collection was also seen Patient was transferred to [facility] on 04/24/22. She has apparently had e xtensive back surgeries. WBC count is 6.3. Off Levophed Continue on Meropenem ID and critical care following 2. Acute kidney injury on CKD stage 3, resolving Baseline creatinine is 1.2 Admitted with creatinine of 3.03, creatinine is 1.17 Continue with gentle IV fluid hydration and pressors Trend labs in a.m. 3. Hypokalemia, replaced, recheck in a.m. 4. Anemia, acute on chronic, likely mixed/anemia of chronic disease Hemoglobin dropped to 6.8 from 9.4 on admission FOBT pending Transfuse 1 unit of packed RBC, repeat hemoglobin is 8.7 5. Acute metabolic encephalopathy secondary to #1 and 2 Waxes and wanes, continue to monitor 6. Debility, acute on chronic, patient will be discharged back to facility with hospice 7. Severe protein calorie malnutrition, hangar attendant consulted, continue supplements 8. DVT prophylaxis - Heparin SC Charges/Coding Visit Charges Inpatient E&M: 07406 Subs Hosp L2
[2022-07-27 10:12] LABS: Hematocrit 27.7 % (37-47); Hemoglobin 8.7 g/dL (12.0-15.0)
[2022-07-27] MEDS: Ensure Plus High Protein 120 ML LIQUID PO ×3 (14:07→21:48)
[2022-07-27] MEDS: 0.9% Normal Saline 1,000 ML 50 ML IV (14:21)
[2022-07-28] VITALS (13 sets, daily range): BP systolic 92–115; BP diastolic 52–70; PULSE 68–90; RESP 12–24; TEMP 36.8–37.4; O2SAT 94–100
[2022-07-28 05:04] LABS: Absolute Lymphocyte Count 0.95 X10^3/uL (0.83-4.51); Absolute Neutrophil Count 3.9 X10^3/uL (2.0-7.7); Basophil# 0.03 X10^3/uL; Basophil% 0.5 % (0-1); Eosinophil# 0.18 X10^3/uL; Eosinophils% 3.1 % (0-5); Hematocrit 24.9 % (37-47); Hemoglobin 7.8 g/dL (12.0-15.0); Lymphocyte # 0.95 X10^3/ul (0.83-4.51); Lymphocyte % 16.6 % (19-41); Mean Corp Hgb Conc 31.3 g/dL (32-36); Mean Corpuscular Hgb 31.2 pg (27.0-32.0); Mean Corpuscular Volume 99.6 fL (81-99); Mean Platelet Vol. 12.1 fl (6.2-12.0); Monocyte# 0.57 X10^3/uL; Monocyte% 9.9 % (0-10); NRBC Flagged by Analyzer 0 % (0-5); Neutrophil # 3.94 X10^3/uL (2.7-7.7); Neutrophil % 68.9 % (47-70); POSITIVE COUNT YES; POSITIVE MORPHOLOGY YES; Platelet Count 90 K/mm3 (150-450); RBC Distribution Width SD 72.3 fl (35.1-43.9); White Blood Count 5.7 K/mm3 (4.4-11.0)
[2022-07-28 05:05] LABS: Differential Indicated SCAN CRITERIA MET
[2022-07-28 05:27] LABS: ALB/GLOB Ratio 0.4 RATIO (0.9-2.4); AST(SGOT) 11 U/L (15-37); Alanine Aminotransfer ALT/SGPT 9 U/L (13-56); Alkaline Phosphatase 95 U/L (45-117); Anion Gap 6 (5-15); BUN 18 mg/dL (7-18); BUN/Creat Ratio 19.5 RATIO (10-20); Calcium,Total 6.5 mg/dL (8.5-10.1); Chloride 117 mmol/L (98-107); Creatinine, Serum 0.92 mg/dL (0.55-1.02); EST Glomerular Filtration Rate 62 mL/min (>60); Est Glom Filt Rate - Afr Amer 75 mL/min (>60); Estimated Creatinine Clearance 39.67 ml/min; Globulin 2.4 g/dL (2.2-4.2); Glucose 247 mg/dL (74-106); Potassium 3.5 mmol/L (3.5-5.1); Protein, Total 3.4 g/dL (6.4-8.2); Sodium Level 144 mmol/L (136-145)
[2022-07-28 05:34] LABS: Anisocytosis 1+; Differential Comment SCANNED; Macrocytosis RARE; Microcytosis RARE; Platelet Estimate SLT DEC (ADEQ)
--- NOTE | 2022-07-28 07:00 | PN.CC_ITS ---
Assessment & Plan Assessment/Plan (1) Septic shock: (2) ARTI (acute kidney injury): PLAN: Plan RECOMMENDATIONS: 1. Continue with meropenem 2. Hold on further blood transfusions given goals of therapy 3. Wound nurse to left flank wound 4. No need for midodrine 5. Await nephew's decision on hospice 6. Pain control as necessary 7. Will sign off from a critical care perspective IMPRESSIONS: 1. ESBL septic shock Source is unclear. Clinical suspicion for left flank wound. Patient has had multiple episodes of infection in the past. Urinalysis appears to be somewhat suspect, but may be a result of bacteremia. Patient does have a central line, but this appears to be benign at the skin. Patient is on appropri ate antibiotics at this time. Off pressors over 24 hours. No need to initiate midodrine. Patient is significantly positive over the course of the hospitalization. May benefit from Lasix if becomes hypoxic. Patient reportedly is agreeing to hospice measures. 2. Acute kidney injury with hyperkalemia secondary to septic shock Resolved. Clinical suspicion for ATN secondary to sepsis. Patient presented with a creatinine of 3 with a baseline of approximately 1.2. Patient did receive fluid resuscitation and pressors initially. No indication for renal replacement therapy at this time. We will continue to monitor closely. Likely not necessary to involve nephrology at this time. 3. Anemia of chronic disease/debility/weakness/recurrent infections Complicates care, management, recovery and prognosis. PT and OT have been consulted. Unclear rehab potential given comorbidities. Hemoglobin appears to be relatively stable at this time. No indication for transfusions. Nursing is reporting patient electing for hospice measures on discharge Subjective Subjective Patient did well overnight. No acute issues were reported. Patient continues to remain off pressors. No obvious blood loss has been noted. Patient is not reporting any new symptomatology. Patient reportedly is to go to an [facility] on hospice. Objective Data Objective Data Vital Signs: Vital Signs Temp Pulse Resp BP Pulse Ox O2 Del Method O2 Flow Rate 37.1 C 73 13 115/66 95 Room Air 3 07/28/22 04:00 07/28/22 06:00 07/28/22 06:00 07/28/22 06:00 07/28/22 06:00 07/28/22 06:00 07/24/22 17:49 Oxygen Flow Rate (L/min) 3 Oxygen Delivery Method Room Air Weight: 71.7 kg Body Mass Index (BMI) 25.2 Intake & Output: Intake and Output for Last 24 Hours 07/26/22 07/27/22 07/28/22 23:59 23:59 23:59 Intake Total 3433.36 / 3433.36 2603.9233 / 3148.0933 1032.17 / 1032.17 Output Total 740 / 740 650 / 650 175 / 175 Balance 2693.36 / 2693.36 1953.9233 / 2498.0933 857.17 / 857.17 Medical Nutrition Assessment Dietitian: Malnutrition Criteria Met Start: 07/25/22 1 0:37 Freq: Status: Active Protocol: Document 07/27/22 09:39 SLA (Rec: 07/27/22 09:39 SLA [id number]) Nutrition Malnutrition Evidence of Malnutrition Exists Yes Malnutrition (severe): Chronic Evidenced By Suboptimal Energy Intake ( Severe),Weight Loss (Severe), Physical Changes (Moderate) Clinical Problem Chronic Disease or Condition Related Malnutrition Etiology severe, chronic malnutrition related to inadequate oral intake w/ decreased appetite d /t hospitalizations for spinal abscess Signs/Symptoms as evidenced by unintentional wt loss of 59.3#/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 Status Active Problem Recommendation Dietitian Recommendations/Changes Rec continue regular diet- texture/consistency modifications per MOTORCYCLE REPAIR SHOP SUPERVISOR Will continue ensure plus high protein 120mL 4x/day w/ medpass and Orestes BID for wound healing Rec consider appetite stimulant to help w/ increased intake at meals. Lab / Micro Data Attestation: I reviewed the patient's lab results. Result Diagrams: 07/28/22 04:50 07/28/22 04:50 Labs: Laboratory Results - last 24 hr 07/27/22 04:30: Crossmatch See Detail 07/27/22 09:55: Hgb 8.7 L, Hct 27.7 L 07/28/22 04:50: WBC 5.7, RBC 2.50 L, Hgb 7.8 L, Hct 24.9 L, MCV 99.6 H D, MCH 31.2, MCHC 31.3 L, RDW Std Deviation 72.3 H, RDW Coeff of Enedina 20.0 H, Plt Count 90 L, MPV 12.1 H, Immature Gran % (Auto) 1.000 H, Neut % (Auto) 68.9, Lymph % (Auto) 16.6 L, [place] % (Auto) 9.9, Eos % (Auto) 3.1, Baso % (Auto) 0.5, Absolute Neuts (auto) 3.9, Absolute Lymphs (auto) 0.95, Nucleated RBC % 0, Differential Comment SCANNED, Platelet Estimate SLT DEC, Anisocytosis 1+, Microcytosis RARE, Macrocytosis RARE 07/28/22 04:50: Sodium 144, Potassium 3.5, Chloride 117 H, Carbon Dioxide 21.0, Anion Gap 6, BUN 18, Creatinine 0.92, Estim Creat Clear Calc 39.67, Est GFR (MDRD) Af Amer 75, Est GFR (MDRD) Non-Af 62, BUN/Creatinine Ratio 19.5, Glucose 247 H, Calcium 6.5 L*, Total Bilirubin 0.30, AST 11 L, ALT 9 L, Alkaline Phosphatase 95, Total Protein 3.4 L, Albumin 1.0 L, Globulin 2.4, Albumin/Globulin Ratio 0.4 L Micro: Microbiology 07/24/22 14:48 Wound - Back Gram Stain - Final 07/24/22 14:48 Wound - Back Wound Culture - Final Pseudomonas aeroginosa Klebsiella pneumoniae sp pneum 07/24/22 16:05 Urine, Catheterized Urine Culture - Final Klebsiella pneumoniae sp pneum 07/24/22 14:40 Blood Culture (Wb) - Port Blood Culture - Final Klebsiella pneumoniae sp pneum 07/24/22 14:03 Blood Culture (Wb) - Anticubital Left Blood Culture - Preliminary No growth in 48 hours. 07/24/22 18:21 Urine Catheter - Catheter Legionella Antigen - Final 07/24/22 18:21 Urine Catheter - Catheter Streptococcus pneumoniae Antigen (M - Final 07/24/22 14:18 Nasal Secretion SARS-CoV-2 Antigen (Rapid) - Final Physical Exam Const alert and no apparent distress Constitutional Narrative: Oriented x2 General Appearance: frail HEENT normocephalic, head/scalp atraumatic and moist oral mucous membranes Eyes conjunctivae normal and no scleral icterus Neck no lymphadenopathy and supple General: trachea midline Chest Chest Narrative: Central line in right chest is clean, dry and intact. Resp normal respiratory effort and normal air movement Auscultation: diminished lung sounds; Negative for rales, rhonchi or wheezes Cardio regular rate, regular rhythm, S1 normal heart sound, S2 normal heart sound, no murmurs, no rub, no gallops and peripheral pulses 2+ throughout GI normal to inspection, nondistended, normoactive bowel sounds, soft to palpation and non-tender Extremity normal capillary refill and no clubbing, cyanosis or edema Skin Wound Narrative: Large wound in the left chest. Dressing is clean, dry and intact. Neuro moves all extremities and no focal motor deficits Motor Exam: general weakness Psych Psych Narrative: Much more responsive today compared to yesterday Mood & Affect: flat affect Charges/Coding Visit Charges Inpatient E&M: 74196 Subs Hosp L2
[2022-07-28] MEDS: Ensure Plus High Protein 120 ML LIQUID PO (09:14)
--- NOTE | 2022-07-28 09:46 | TREXTCAR_ITS ---
Diet Diet Order/Speech Therapy: 07/24/22 18:43 Diet: Regular - General Food consistency:: Mechanical (Minced/Moist) Liquid Consistency:: Regular/Thin Is pt able to select menu?: No Diet Comments: Supervision at meals / Assist pt feeding, MEALS ONLY IF FULLY ALERT Routine Orders/Code Status Suppository Type: Dulcolax 10mg Suppository Frequency: Daily PRN Keep PO Greater than or Equal to (%): 94 Routine Lab Work: CBC (within 3 days) and - (CMP within 3 days) Code Status: DNRCC-A Wound(s) L side below last rib: Wound Type: unknown cause coccyx: Wound Type: Pressure Injury L AC: Wound Type: Skin Tear right pointer finger: Wound Type: Skin Tear Therapies Weight Bearing: Weight bearing as tolerated Physical Therapy: Eval and Treat Occupational Therapy: Eval and Treat Problem/Diagnosis (1) Septic shock: Status: Acute Code(s): A41.9 - Sepsis, unspecified organism; R65.21 - Severe sepsis with septic shock (2) ARTI (acute kidney injury): Status: Acute Code(s): N17.9 - Acute kidney failure, unspecified Plan 1. Septic shock/Klebsiella ESBL bacteremia 2. Acute kidney injury on CKD stage 3 3. Hypokalemia 4. Anemia, acute on chronic, likely mixed/anemia of chronic disease 5. Acute metabolic encephalopathy 6. Debility, acute on chronic 7. Severe protein calorie malnutrition Allergies/Procedures Done in Hospital Allergies bee venom protein (honey bee) Adverse Reaction (Verified 07/24/22 16:14) Other Procedures: None Type of Care/Length of Stay Estimated LOS: More Than 30 Days Type of Care Needed: Intermediate Rehab Potential: None Prognosis: None Additional Orders/Day of Discharge Day of Discharge: 07/28/22 Dietary and Speech Recommendations Dietitian Recommendations/Changes: Rec continue regular diet- texture/consistency modifications per CIRCULAR KNITTER HELPER Will continue ensure plus high protein 120mL 4x/day w/ medpass Will d/c Orestes BID for wound healing d/t pt refusal per nsg Rec consider appetite stimulant to help w/ increased intake at meals. Discharge Plan Admission Admit Date/Time: 07/24/22 17:36 Primary Reason for Your Visit: Septic shock/Klebsiella ESBL bacteremia/UTI/Infected wound Attending Provider: Shana Pompa Primary Care Provider: Care Physician,No Primary Consulting Providers: Gavin Mcdonnell ; Jem Almeida ; Romain Baldwin ; Nikita Jeffers ; Jo Ann Partida CASUALTY CLAIMS SUPERVISOR ; Asher Grace ; Alissa Baldwin ; Tan Mendez ; Nilda Hunt ; Margaret Muniz ; Umu Rainey CASUALTY CLAIMS SUPERVISOR Discharge Orders/Prescriptions Prescriptions: New Ensure Plus High Protein 0.08 gram-1.5 kcal/mL Liquid 120 ml PO 4X/DAY Qty: 0 0RF Continued ipratropium-albuterol 0.5 mg-3 mg(2.5 mg base)/3 mL Solution For Nebulization 3 ml INHALATION Q6H PRN (Reason: Shortness Of Breath) calcium carbonate [Calcium 600] 600 mg calcium (1,500 mg) Tablet 600 mg PO BID magnesium 200 mg Tablet 200 mg PO BID Discontinued potassium chloride 10 mEq Capsule, Extended Release 10 meq PO BID benzonatate 200 mg Capsule 200 mg PO TID cefadroxil 500 mg Capsule 1,000 mg PO BID bumetanide 1 mg Tablet 1 mg PO TID ondansetron 4 mg Tablet,Disintegrating 4 mg PO Q12H PRN (Reason: Nausea) sodium chloride 0.9 % (flush) [Normal Saline Flush] Syringe 10 ml IV Q12H Rx Instructions: administer before and after IV drug administration as part of [facility] protocol Referrals / Follow Up: Care Physician,No Primary [Primary Care Provider] - Disposition Disposition (needs filled in before D/C Order can be placed): Jail Facility
--- NOTE | 2022-07-28 09:59 | DS.PCM_ITS ---
Providers Date of Admission: 07/24/22 Date of Discharge: 07/28/22 Primary Care Physician: Linda Primary Care Phys Consultations 07/24/22 18:26 Consult: Hospice / Palliative Care Routine Consulting Provider: [facility] Reason for Consult: debility EMERGENT Consult: No Notified: Yes Date Notified: 07/24/22 Time Notified: 17:52 Method of Notification: social work notified Consult: Infectious Disease Routine Consulting Provider: Gavin Mcdonnell Reason for Consult: sepsis EMERGENT Consult: No Notified: Yes Date Notified: 07/24/22 Time Notified: 17:52 Method of Notification: Verbal Consult: Renal Technician / Pulmonary Medicine Routine Consulting Provider: Pulmonary Medicine [facility] Reason for Consult: Sepsis EMERGENT Consult: No Notified: Yes Date Notified: 07/24/22 Time Notified: 17:48 Method of Notification: Verbal 07/24/22 18:51 Consult: Onc/Wound/director of preclinical research Routine Comment: Reason for Consult:: wound to left flank and coccyx Reason For Visit: SEPSIS Diagnosis Discharge Diagnosis (1) Septic shock: Status: Acute Code(s): A41.9 - Sepsis, unspecified organism; R65.21 - Severe sepsis with septic shock (2) ARTI (acute kidney injury): Status: Acute Code(s): N17.9 - Acute kidney failure, unspecified Plan 1. Septic shock/Klebsiella ESBL bacteremia 2. Acute kidney injury on CKD stage 3 3. Hypokalemia 4. Anemia, acute on chronic, likely mixed/anemia of chronic disease 5. Acute metabolic encephalopathy 6. Debility, acute on chronic 7. Severe protein calorie malnutrition Medications at Discharge Home Medications calcium carbonate 600 mg calcium (1,500 mg) tablet (Calcium) 600 mg PO BID 07/24/22 ipratropium 0.5 mg-albuterol 3 mg (2.5 mg base)/3 mL nebulization soln 3 ml inhalation Q6H PRN Shortness Of Breath 07/24/22 magnesium 200 mg tablet 200 mg PO BID 07/24/22 food supplemt, lactose-reduced 0.08 gram-1.5 kcal/mL oral liquid (Ensure Plus High Protein) 120 ml PO 4X/DAY #0 mL 07/28/22 Hospital Course Operations None Procedures None Summary of Care Provided Minutes Spent on Discharge: 40 Hospital Course: 82-year-old female, resident in a skilled nursing who has past medical history of paraspinal abscesses, 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 Patient presented with altered mental status. She completed antibiotics on June 23 for osteomyelitis and paraspinal abscesses. Patient presented with a right tunneled PICC line. She was noted to be hypotensive, had elevated white cell count, was tachypneic. Patient was admitted to the ICU, received IV fluids, and started on IV vancomycin and Zosyn. She did require use of pressors. She had acute kidney injury on admission. Admitting creatinine 3.03. Patient's blood cultures grew Klebsiella pneumonia, ESBL. This was also in her urine and in her wound. Infectious disease were consulted. Her vancomycin was discontinued, antibiotics transitioned to meropenem. Patient's family signed up for hospice. Patient was discharged back to skilled nursing with hospice. Physical Exam Narrative Physical exam: General: Alert, Oriented, confused, cooperative, appears very frail, unwell, HEENT: Atraumatic Oral: Poor oral dentition and hygiene, dry oral mucosa Neck: Supple, right sided subclavian IJ catheter Lungs: Diminished to auscultation Cardiovascular: HS I+II, regular, no murmurs Abdomen: Bowel Sounds Present, Soft, Non Tender Extremities: No edema Skin: No rashes, No breakdown Neurological: Grossly intact Psych/Mental Status: Appropriate Medical Records Data Medical Nutrition Assessment Dietitian: Malnutrition Criteria Met Start: 07/25/22 1 0:37 Freq: Status: Active Protocol: Document 07/28/22 09:39 SLA (Rec: 07/28/22 09:39 SLA Desktop) Nutrition Malnutrition Evidence of Malnutrition Exists Yes Malnutrition (severe): Chronic Evidenced By Suboptimal Energy Intake ( Severe),Weight Loss (Severe), Physical Changes (Moderate) Clinical Problem Chronic Disease or Condition Related Malnutrition Etiology severe, chronic malnutrition related to inadequate oral intake w/ decreased appetite d /t hospitalizations for spinal abscess Signs/Symptoms as evidenced by unintentional wt loss of 59.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 Status Active Problem Recommendation Dietitian Recommendations/Changes Rec continue regular diet- texture/consistency modifications per RELATIONSHIP ASSOCIATE Will continue ensure plus high protein 120mL 4x/day w/ medpass Will d/c Orestes BID for wound healing d/t pt refusal per nsg Rec consider appetite stimulant to help w/ increased intake at meals. Weight / BMI Weight Weight: 71.7 kg Body Mass Index (BMI) 25.2 ABG / Lab / Microbiology Data Result Diagrams: 07/28/22 04:50 07/28/22 04:50 Laboratory: Laboratory Results - last 24 hr 07/27/22 09:55: Hgb 8.7 L, Hct 27.7 L 07/28/22 04:50: WBC 5.7, RBC 2.50 L, Hgb 7.8 L, Hct 24.9 L, MCV 99.6 H D, MCH 31.2, MCHC 31.3 L, RDW Std Deviation 72.3 H, RDW Coeff of Enedina 20.0 H, Plt Count 90 L, MPV 12.1 H, Immature Gran % (Auto) 1.000 H, Neut % (Auto) 68.9, Lymph % (Auto) 16.6 L, [place] % (Auto) 9.9, Eos % (Auto) 3.1, Baso % (Auto) 0.5, Absolute Neuts (auto) 3.9, Absolute Lymphs (auto) 0.95, Nucleated RBC % 0, Differential Comment SCANNED, Platelet Estimate SLT DEC, Anisocytosis 1+, Microcytosis RARE, Macrocytosis RARE 07/28/22 04:50: Sodium 144, Potassium 3.5, Chloride 117 H, Carbon Dioxide 21.0, Anion Gap 6, BUN 18, Creatinine 0.92, Estim Creat Clear Calc 39.67, Est GFR (MDRD) Af Amer 75, Est GFR (MDRD) Non-Af 62, BUN/Creatinine Ratio 19.5, Glucose 247 H, Calcium 6.5 L*, Total Bilirubin 0.30, AST 11 L, ALT 9 L, Alkaline Phosphatase 95, Total Protein 3.4 L, Albumin 1.0 L, Globulin 2.4, Album in/Globulin Ratio 0.4 L Microbiology: Microbiology 07/24/22 14:48 Wound - Back Gram Stain - Final 07/24/22 14:48 Wound - Back Wound Culture - Final Pseudomonas aeroginosa Klebsiella pneumoniae sp pneum 07/24/22 16:05 Urine, Catheterized Urine Culture - Final Klebsiella pneumoniae sp pneum 07/24/22 14:40 Blood Culture (Wb) - Port Blood Culture - Final Klebsiella pneumoniae sp pneum 07/24/22 14:03 Blood Culture (Wb) - Anticubital Left Blood Culture - Preliminary No growth in 48 hours. 07/24/22 18:21 Urine Catheter - Catheter Legionella Antigen - Final 07/24/22 18:21 Urine Catheter - Catheter Streptococcus pneumoniae Antigen (M - Final 07/24/22 14:18 Nasal Secretion SARS-CoV-2 Antigen (Rapid) - Final D/C Instructions Discharge Diet: No restrictions Meaningful Use Info Meaningful Use Diagnoses (Choose all that apply): None applicable Discharge Plan Admission Admit Date/Time: 07/24/22 17:36 Primary Reason for Your Visit: Septic shock/Klebsiella ESBL ba cteremia/UTI/Infected wound Attending Provider: Shana Pompa Primary Care Provider: Suze Soliz,Linda Primary Consulting Providers: Gavin Mcdonnell ; Jem Almeida ; Romain Baldwin ; Nikita Jeffers ; Jo Ann Partida TELEVISION PRODUCTION CLERK ; Asher Grace ; Alissa Baldwin ; Tan Mendez ; Nilda Hunt ; Margaret Muniz ; Umu Rainey TELEVISION PRODUCTION CLERK Discharge Orders/Prescriptions Prescriptions: New Ensure Plus High Protein 0.08 gram-1.5 kcal/mL Liquid 120 ml PO 4X/DAY Qty: 0 0RF Continued ipratropium-albuterol 0.5 mg-3 mg(2.5 mg base)/3 mL Solution For Nebulization 3 ml INHALATION Q6H PRN (Reason: Shortness Of Breath) calcium carbonate [Calcium 600] 600 mg calcium (1,500 mg) Tablet 600 mg PO BID magnesium 200 mg Tablet 200 mg PO BID Discontinued potassium chloride 10 mEq Capsule, Extended Release 10 meq PO BID benzonatate 200 mg Capsule 200 mg PO TID cefadroxil 500 mg Capsule 1,000 mg PO BID bumetanide 1 mg Tablet 1 mg PO TID ondansetron 4 mg Tablet,Disintegrating 4 mg PO Q12H PRN (Reason: Nausea) sodium chloride 0.9 % (flush) [Normal Saline Flush] Syringe 10 ml IV Q12H Rx Instructions: administer before and after IV drug administration as part of [facility] protocol Referrals / Follow Up: Care Physician,No Primary [Primary Care Provider] - Disposition Disposition (needs filled in before D/C Order can be placed): [facility] Charges/Coding Visit Charges Inpatient E&M: 57807 Disch Hosp
[2022-07-28] MEDS: 0.9% Saline Lock 10 ML Syringe IV (12:05)
== END 2022-07-28 13:20 | disposition hospice, inpatient (51) | DRG 871 ==
LOC: ED 17:10 → PCU 17:41 → ICU 17:56
PROVIDERS: Hospitalist; Nurse Practitioner Family; Admitting Provider Internal Medicine; Emergency Provider Emergency Medicine; Visit Provider Internal Medicine
DX: A41.59 Other Gram-negative sepsis (principal); G93.41 Metabolic encephalopathy; R65.21 Severe sepsis with septic shock; G06.1 Intraspinal abscess and granuloma; E43 Unspecified severe protein-calorie malnutrition; N17.9 Acute kidney failure, unspecified; M46.26 Osteomyelitis of vertebra, lumbar region; N39.0 Urinary tract infection, site not specified; Z16.12 Extended spectrum beta lactamase (ESBL) resistance; N18.30 Chronic kidney disease, stage 3 unspecified; E87.5 Hyperkalemia; M51.36 Other intervertebral disc degeneration, lumbar region; M46.40 Discitis, unspecified, site unspecified; D63.8 Anemia in other chronic diseases classified elsewhere; M48.061 Spinal stenosis, lumbar region without neurogenic claudication; E87.6 Hypokalemia; Z66 Do not resuscitate; R53.81 Other malaise; Z68.28 Body mass index [BMI] 28.0-28.9, adult; Z86.711 Personal history of pulmonary embolism
CPT/HCPCS: 51702; 71045; 74176; 80053; 80202; 81001; 82962; 83540; 83550; 83605; 83735; 84100; 85014; 85018; 85025; 85610; 85730; 86850; 86900; 86901; 86920; 86922; 87040; 87070; 87077; 87086; 87088; 87184; 87186; 87205; 87426; 87449; 87811; 92526; 92610; 93005; 97162; 97166; 97802; 99285; J2185; J7030; J7040; J7050; P9016; A4216